=== PATIENT | male | born 1950 | race Caucasian/White ===

== ENCOUNTER → 2017-12-20 11:52 | Outpatient (CLI) | payer MEDICARE, OTHER, SELFPAY ==
--- NOTE | 2017-12-20 | DI.MRI.S_ITS ---
PROCEDURE: MR HEAD/BRAIN WO/W CON INDICATIONS: TRANSLENT CEREBRAL ISCHEMIA TECHNIQUE: Noncontrast axial T1 spin echo, axial T2 fast spin echo, sagittal and axial FLAIR, coronal T2 fast spin echo, axial gradient echo, axial diffusion and ADC through the brain. After the administration of contrast, axial and coronal T1 spin echo with fat saturation through the brain. COMPARISON: None. FINDINGS: Image quality: Excellent. CSF spaces: Basal cisterns are patent. No extra-axial fluid collections. Ventricles are normal in size and shape. Brain: No midline shift. No intracranial bleeds or masses. No abnormal intracranial enhancement. There is cerebral volume loss for age. There is periventricular white matter chronic small vessel ischemic change. The brainstem appears normal. Diffusion-weighted images demonstrate no acute ischemic insults. No chronic ischemic insults. Normal intravascular flow voids are present. Skull and face: Calvarial marrow is normal in signal. Orbits appear normal. Within the subcutaneous fat of the right posterior superior scalp, there is a 13 mm lesion seen that demonstrates postcontrast enhancement. There is well-defined. No additional similar scalp lesions can be seen. Sinuses: Sinuses and mastoids appear clear. IMPRESSION: No findings of acute or subacute infarction can be seen. No masses or abnormal enhancement can be seen. Note is made of age-appropriate brain parenchymal volume loss and chronic small vessel ischemic changes. Likely benign subcutaneous lesion involving the right posterior superior scalp. Please correlate with physical examination findings. Dictated by: Uriel Mata M.D. on 12/20/2017 at 12:17 Approved by: Uriel Mata M.D. on 12/20/2017 at 12:19
[2017-12-20 12:36] LABS: Estimated Glomerular Filt Rate > 60.0 mL/min (>60)
== END ==
PROVIDERS: Family Provider Family Medicine; PCP Family Medicine; Visit Provider Psychiatry & Neurology Neurology
DX: G45.9 Transient cerebral ischemic attack, unspecified (principal); L98.9 Disorder of the skin and subcutaneous tissue, unspecified
CPT/HCPCS: 36415; 70553; 82565; A9579

== ENCOUNTER → 2018-03-15 09:45 | Outpatient (CLI) | payer MEDICARE, OTHER, SELFPAY ==
--- NOTE | 2018-03-15 | DI.MRI.S_ITS ---
PROCEDURE: MR LUMBAR SPINE WO/W CON INDICATIONS: Paresthesia of skin TECHNIQUE: Noncontrast sagittal T1 spin echo and T2 fast spin echo, sagittal STIR, axial T1 and T2 fast spin echo through the lumbar spine. In cases with scoliosis, additional coronal T2 fast spin echo may be performed. After the administration of contrast, sagittal and axial T1 spin echo with fat saturation through the lumbar spine. COMPARISON: [facility], , L-SPINE WITHOUT CONTRAST, 11/09/2015, 16:13. FINDINGS: Image quality: Excellent. Alignment and curvature: There is normal bony alignment. Marrow: Marrow is of normal overall signal. No acute vertebral body compression fractures. No suspicious marrow enhancement. Spinal cord: Conus medullaris terminates at the L1 level. Visualized spinal cord demonstrates normal signal, without suspicious enhancement. Paraspinous soft tissues: No paravertebral masses or abnormal enhancement. L1-L2: Mild loss of disc height and disc desiccation. There is diffuse posterior disc bulge with disc osteophyte complex. The central canal is mildly narrowed. Mild left foraminal stenosis. No right foraminal stenosis. No significant change. L2-L3: Mild loss of disc height and disc desiccation. There is diffuse posterior disc bulge with disc osteophyte complex. Moderate bilateral facet arthropathy and mild hypertrophy of ligament of flavum. The central canal is mildly narrowed. Mild narrowing of the left lateral recess. No foraminal stenosis. No significant change. L3-L4: Mild loss of disc height and disc desiccation. There is diffuse posterior disc bulge with disc osteophyte complex. There is left paramedian disc extrusion with the extreme disc extending superiorly measuring 4 mm anterior-posterior, 13 mm transverse and 11 mm cephalocaudal. This finding is new. Moderate bilateral facet arthropathy and hypertrophy of ligament of flavum. The central canal is moderately narrowed, increased. [id number] bilateral foraminal stenosis, slightly increased. L4-L5: Mild loss of disc height and disc desiccation. There is diffuse posterior disc bulge with disc osteophyte complex. There Moderate bilateral facet arthropathy and hypertrophy of ligament of flavum. The central canal is mildly narrowed. [id number] bilateral foraminal stenosis, unchanged. L5-S1: Preserved disc height and mild disc desiccation. There is diffuse posterior disc bulge. Moderate bilateral facet arthropathy. The central canal is patent. Moderate right and mild left foraminal stenosis, unchanged. IMPRESSION: 1. Multilevel degenerative disc disease and facet arthropathy as described. 2. There is disc herniation at L3-L4, new since the last exam. 3. Moderate central canal stenosis at L3-L4. 4. Multilevel foraminal stenosis as described. Dictated by: Edson Adams M.D. on 03/15/2018 at 11:37 Transcribed by: KATEY on 03/15/2018 at 19:28 Approved by: Edson Adams M.D. on 03/16/2018 at 19:02
== END ==
PROVIDERS: Family Provider Family Medicine; PCP Family Medicine; Visit Provider Psychiatry & Neurology Neurology
DX: M51.36 Other intervertebral disc degeneration, lumbar region (principal); M51.37 Other intervertebral disc degeneration, lumbosacral region; M48.061 Spinal stenosis, lumbar region without neurogenic claudication; R20.2 Paresthesia of skin; M48.07 Spinal stenosis, lumbosacral region; M47.816 Spondylosis without myelopathy or radiculopathy, lumbar region; M47.817 Spondylosis without myelopathy or radiculopathy, lumbosacral region; M51.26 Other intervertebral disc displacement, lumbar region
CPT/HCPCS: 72158

== ENCOUNTER → 2018-10-30 12:03 | Outpatient (CLI) | payer MEDICARE, OTHER, SELFPAY ==
[2018-10-30 13:03] LABS: Add Manual Diff / Slide Review NO; Basophils Absolute Auto 0 /uL (0-100); Basophils Percent Auto 0.6 % (0-2); Eosinophils Absolute Auto 100 /uL (0-450); Hematocrit 41.3 % (41-53); Hemoglobin 14.1 g/dL (13.5-17.5); Lymphocytes Absolute Auto 1400 /uL (1100-4500); Lymphocytes Percent Auto 29.8 % (25-40); Mean Corpuscular HGB Conc 34.2 % (30-36); Mean Corpuscular Hemoglobin 30.1 PG (26-34); Mean Corpuscular Volume 88.1 fL (80-100); Monocytes Absolute Auto 400 /uL (0-900); Neutrophils Absolute Auto 2700 /uL (1500-7000); Neutrophils Percent Auto 58.6 % (50-75); Platelet Count 178 X10^3/uL (150-400); Red Blood Cell Count 4.69 X10^6/uL (4.5-5.9); Red Cell Distribution Width 14.1 % (11.6-14.8); White Blood Cell Count 4.6 X10^3/uL (4.5-11.0)
[2018-10-30 13:16] LABS: Hemoglobin A1C% w Est Avg Glu 6.2 % (4.0-6.0)
[2018-10-30 13:17] LABS: Appearance Urine UA CLEAR; Bilirubin Urine UA NEGATIVE (NEGATIVE); Color Urine UA YELLOW; Glucose Urine UA NEGATIVE (Negative); Ketones Urine UA TRACE (NEGATIVE); Leukocyte Esterase Urine UA TRACE (NEGATIVE); Nitrite Urine UA NEGATIVE (Negative); Occult Blood Urine UA NEGATIVE (Negative); Protein Urine UA NEGATIVE (Negative); Specific Gravity Urine UA <=1.005 (1.000-1.035)
[2018-10-30 13:29] LABS: Blood Urea Nitrogen 18 mg/dL (9-20); Carbon Dioxide 24 mmol/L (22-32); Chloride 100 mmol/L (98-107); Estimated Glomerular Filt Rate > 60.0 mL/min (>60); Glucose 99 mg/dL (80-110); HEMOLYSIS 50 (0-50); Potassium 4.1 mmol/L (3.4-5.1); Sodium 137 mmol/L (137-145)
[2018-10-30 13:35] LABS: Bacteria Urine Occasional (0-1); Culture Indicated Urine Specimen Cultured; RBC Urine 0-1/HPF (0-5/HPF); WBC Urine 0-1/HPF (0-5/HPF)
== END ==
PROVIDERS: Family Provider Family Medicine; PCP Family Medicine; Visit Provider Orthopaedic Surgery
DX: Z01.818 Encounter for other preprocedural examination (principal); Z01.812 Encounter for preprocedural laboratory examination; N39.9 Disorder of urinary system, unspecified; Z13.1 Encounter for screening for diabetes mellitus; R73.9 Hyperglycemia, unspecified
CPT/HCPCS: 36415; 80048; 81001; 83036; 85025; 87086; 93005; 93010

== ENCOUNTER → 2018-11-21 17:37 | Outpatient (CLI) | payer MEDICARE, OTHER, SELFPAY ==
--- NOTE | 2018-11-21 | DI.MRI.S_ITS ---
PROCEDURE: MR KNEE LT WO CON INDICATIONS: Unilateral primary osteoarthritis, left knee TECHNIQUE: Noncontrast sagittal PD fast spin echo and T2 fast spin echo with fat saturation, sagittal 3-D FLASH with fat saturation; coronal T1 spin echo and PD fast spin echo with fat saturation, and axial PD fast spin echo with fat saturation through the knee. COMPARISON: [facility], CR, XR KNEE ARTHRITIC SERIES BI, 10/26/2018, 13:33. FINDINGS: Image quality: Excellent. Menisci: There is medial extrusion of the medial meniscus. There is complex tearing of the posterior horn medial meniscus adjacent to the meniscal root ligament insertion site. Radial tearing of the free edge of the posterior horn medial meniscus is present. Amorphous high signal intensity within the medial meniscal body is present, demonstrating inferior articular surface extension. There is radial tearing of the free edge of the lateral meniscal body. Cruciate ligaments: The anterior and posterior cruciate ligaments appear intact. Medial structures: The medial collateral ligament appears intact. Visualized portions of the pes anserinus tendons appear normal. No abnormal bursal fluid. Lateral structures: The lateral collateral ligament, long and short heads of the biceps femoris tendon appear intact. The popliteus tendon appears normal. Iliotibial band appears normal. Anterior structures: The quadriceps and patellar tendons appear intact. Patellar alignment is normal. No femoral trochlear dysplasia or ventral trochlear prominence. No edema in the infrapatellar fat pad. Bones and cartilage: No bone marrow contusions or fractures. Mild ill-defined T2 signal elevation within the weightbearing aspects of the medial femoral condyle and medial tibial plateau. Moderate tricompartmental periarticular osteophyte formation. Severe diffuse articular cartilage loss overlies the weightbearing aspects of the medial femoral condyle and medial tibial plateau. Severe articular cartilage loss overlies the patellar apex and medial patellar facet. Joint space: There is a moderate knee joint effusion and a small Wiseman's cyst. Normal appearing synovial plicae are incidentally noted. IMPRESSION: 1. 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 2. Medial and lateral meniscal tearing. 3. Knee joint effusion and Wiseman's cyst. Dictated by: Kathryn Amezquita M.D. on 11/22/2018 at 9:15 Approved by: Kathryn Amezquita M.D. on 11/22/2018 at 9:23
== END ==
PROVIDERS: Family Provider Family Medicine; PCP Family Medicine; Visit Provider Orthopaedic Surgery
DX: M17.12 Unilateral primary osteoarthritis, left knee (principal); S83.232A Complex tear of medial meniscus, current injury, left knee, initial encounter; S83.282A Other tear of lateral meniscus, current injury, left knee, initial encounter; M71.22 Synovial cyst of popliteal space [Baker], left knee; M25.462 Effusion, left knee
CPT/HCPCS: 73721

== ENCOUNTER 2019-02-05 11:39 | Day surgery (SDC) | payer MEDICARE, OTHER, SELFPAY ==
[2019-01-25 14:30] VITALS: BMI 40.1
[2019-01-29 11:48] VITALS: BMI 40.1
[2019-02-05] VITALS (7 sets, daily range): BP systolic 92–118; BP diastolic 51–73; PULSE 71–80; RESP 10–18; TEMP 36.1–37.2; O2SAT 92–95; BMI 31.2
--- NOTE | 2019-02-05 07:00 | DI.RAD.S_ITS ---
PROCEDURE: XR KNEE LT 1TO2V INDICATIONS: post op TECHNIQUE: 2 view(s) of the knee acquired. COMPARISON: [facility], MR, MR KNEE LT WO CON, 11/21/2018, 18:01. FINDINGS: Bones: Patient is status post left knee joint medial hemiarthroplasty. Hardware components are in expected positions. Visualized bony structures are intact. Soft tissues: Overlying postoperative changes are noted. IMPRESSION: Left knee medial hemiarthroplasty. The left knee prosthesis is in anatomic alignment. Dictated by: Edson Adams M.D. on 02/05/2019 at 17:09 Approved by: Edson Adams M.D. on 02/05/2019 at 17:11
[2019-02-05] MEDS: CELECOXIB 200 MG CAPSULE PO (12:55)
[2019-02-05] MEDS: ACETAMINOPHEN 325 MG TABLET 975 MG PO (12:55)
[2019-02-05] MEDS: PREGABALIN 75 MG CAPSULE PO (12:55)
[2019-02-05] MEDS: LACTATED RINGERS 1,000 ML 42 ML IV (13:45)
[2019-02-05] MEDS: VANCOMYCIN 1,000 MG/200 ML PIGGYBACK 200 MG IV (13:45)
[2019-02-05] MEDS: CEFAZOLIN 2 GM/100 ML FROZ.PIGGY IV (14:16)
--- NOTE | 2019-02-05 14:28 | P.OP_ITS ---
Operative Date/Time/Diagnoses Date of procedure: 02/05/19 Time of procedure: 14:28 Pre-op diagnosis: Left knee medial osteoarthritis Post-op diagnosis: same Procedure & Clinicians Procedure: Left knee medial unicompartment arthroplasty Same procedure as scheduled: Yes Indications: The patient has had progressively worsening left knee pain with radiographic changes consistent with arthritis. Non-operative management has failed and the patient has requested medial unicompartment knee replacement. The risks, benefits and alternatives to surgery were discussed with the patient prior to proceeding. Risks discussed included, but were not limited to, failure to relieve pain, stiffness, infection, nerve damage, deep venous thrombosis, pulmonary embolism, stroke, coma, heart attack, permanent paralysis and , as well as the potential need for eventual revision of the prosthetic. Surgeon: Sheila Aaron [employer]ceivables Specialist: Lissa Arellano Anesthesia Type: General and Peripheral nerve block Operative Notes Findings: Severe left knee medial unicompartment arthritis Closure Type: primary Specimen(s): none sent Prosthetic devices, grafts, tissues, transplants, or devices: [employer] ZUK size 4 tibia, +9 poly, size E femur Estimated Blood Loss (mL): 200 Blood products transfused: none Tourniquet time (min): 65 Procedure in detail: The patient was seen in the pre-operative area, where the left knee was identified as the operative site and this was marked with my initials. The patient received pre-operative antibiotics, and was taken to the operating room and placed on the operative table in the supine position. After satisfactory anesthesia, a area field manager out was performed. The left leg was encircled with a tourniquet about the proximal thigh, and the leg was prepared from the toes to the tourniquet with ChloroPrep in the usual fashion and draped through sterile drapes. The leg was elevated and exsanguinated with Eschmark bandage and the tourniquet inflated to [250] mmHg pressure. The knee was approached through an approximately 10 cm incision medial parapatella incision and carried into the knee through a medial parapatellar arthrotomy. The osteophytes and medial meniscus were removed. Next, a small amount of the anterior tibial boss was carefully resected with a saw. The guide was placed along the medial joint line. It was meticulously adjusted to make sure there was appropriate slope that it was at the joint line and then was pinned to the tibia and the femur. The medial femoral condylar cut was made in extension. The tibial cut was made in flexion. The bone was meticulously irrigated with normal saline. Small amount of additional meniscus was resected posterior capsule was checked and injected with Marcaine. The extension gap was carefully checked with an 8 mm gap dedicated owner operator was noted that it fit well. A small number of additional osteophytes were resected. The tibia was a size 4. It was noted that it fit without overhang. The femur was sized and it was noted to be a E. The appropriate cutting guide was pinned into place and carefully positioned on the femoral condyle. Drill holes were placed. The tibia was pinned into place and drill holes were made. Trial reduction with the appropriate poly showed full range of motion and good stability at 0, 45. and 90? with normal tracking of the components without edge loading. The bone was meticulously irrigated and dried. Additional Marcaine was injected. The posterior capsule was injected with 0.25% Marcaine mixed with 20 ml Exparel for post-operative pain control. The remainder of this mixture was injected into the capsule and subcutaneous tissues during cement curing. Range of motion was [0-130], with good stability throughout the range. The trials were then remove. The cement was as applied and the final prosthetics placed. Excess cement was removed during and after cement curing. A brief medial compartment Betadine soak was performed. After confirming there was no extruded cement posteriorly, the final tibial insert was placed. The knee was copiously irrigated and the tourniquet deflated. Hemostasis was obtained. The capsule was closed with interrupted vicryl. The subcutaneous tissue was closed with barbed sutures. The skin with a running 3-0 V-Lock suture and surgical glue. An Aquacel Ag dressing was applied and the patient was taken to recovery having tolerated the procedure well. Complications: none Post-operative Condition: stable Disposition: same day surgery Plan for aftercare: The patient will be maintained on a standard medial Uni compartmental knee replacement protocol with weight bearing as tolerated. The patient will receive aspirin and sequential compression devices for DVT prophylaxis. The patient will be discharged home when safe for the home environment.
--- NOTE | 2019-02-05 14:28 | PM.PREOP ---
Pre-operative Note Interval Note History & Physical reviewed/Exam performed by Physician: Yes Changes to H&P: No
--- NOTE | 2019-02-05 14:54 | SUR.OPER ---
Supine on padded OR bed. Pillow under head, arms secured on padded armboards <90 degree abduction. Safety belt across torso. Non-operative leg secured with tape over blanket over lower leg. Operative leg secured in Michael positioner. Foam padded brace at thigh of operative leg.
[2019-02-05] MEDS: BUPIVACAINE 0.25% W/ EPI (PF) 10 ML VIAL 60 ML INJ (15:00)
[2019-02-05] MEDS: BUPIVACAINE LIPOSOME 266 MG/20 ML VIAL INJ (15:01)
[2019-02-05] MEDS: SODIUM CHLORIDE IRRIG SOLUTION 250 ML, POVIDONE-IODINE SPONGE STICKS 1 APPLIC IRR (15:02)
--- NOTE | 2019-02-05 15:03 | P.PCN_ITS ---
Procedures Date/Time Date of procedure: 02/05/19 Time of procedure: 14:00 General Procedure description: Ultrasound guided adductor canal nerve block for post op pain control after left uni (medial) knee arthroplasty by Dr. Aaron. Risk and b enefits of procedure discussed with patient. ASA monitoring applied to patient. O2 given via nasal cannula. 50 mcg fentanyl given for procedural sedation. Skin site was prepped with chlorhexidine and allowed to fully dry. Sterile gloves, mask, hat and probe cover were used to maintain sterility. 2% lidocaine and 30ga needle was used to make a small skin wheal at needle insertion site. Under ultrasound guidance, a 21ga 100mm Pajunk needle was directed into the adductor canal near femoral artery and saphenous nerve at the level of mid thigh. Patient reported no parasthesias. After negative aspiration, 20 mL 0.5% ropivicaine and 10mg dexamethasone were injected around saphenous nerve. Patient tolerated procedure well.
--- NOTE | 2019-02-05 15:49 | SUR.PREOP ---
Block start time 1403. Monitoring initiated and maintained throughout procedure. Oxygen given per anesthesiologist instructions. Meds given by Dr Aguirre. Patient remained stable throughout procedure, no adverse reactions noted. Block end time 1407. Patient left for OR in stable condition.
== END 2019-02-05 17:35 | disposition home or self-care (01) ==
PROVIDERS: PCP Family Medicine; Visit Provider Orthopaedic Surgery
PROC: (CPT 27446; principal; 2019-02-05 13:15)
DX: M17.12 Unilateral primary osteoarthritis, left knee (principal); Z86.73 Personal history of transient ischemic attack (TIA), and cerebral infarction without residual deficits; Z79.01 Long term (current) use of anticoagulants; G47.30 Sleep apnea, unspecified; E03.9 Hypothyroidism, unspecified; I10 Essential (primary) hypertension; I25.10 Atherosclerotic heart disease of native coronary artery without angina pectoris; J45.909 Unspecified asthma, uncomplicated
CPT/HCPCS: 27446; 64450; 73560; C1776; C9290; J0690; J1100; J2250; J2405; J2704; J3010

== ENCOUNTER 2019-04-13 11:21 | Inpatient (IN) | payer MEDICARE, OTHER, SELFPAY ==
[2019-04-13] VITALS (9 sets, daily range): BP systolic 115–138; BP diastolic 55–88; PULSE 86–95; RESP 14–26; TEMP 36.8–39.4; O2SAT 92–99; BMI 37.3
--- NOTE | 2019-04-13 12:49 | ED_ITS ---
HPI - General Adult General Chief complaint: Weakness Stated complaint: weakness, shaking, nausea Time Seen by Provider: 04/13/19 12:49 Source: patient Mode of arrival: EMS History of Present Illness HPI narrative: 68-year-old gentleman with a complex medical history including coronary artery disease, cardiomyopathy, hypothyroidism, and prior TIA who presents with fever, chills, general malaise and tachypnea that seems to be getting worse over the last 3 days. He had knee surgery at [facility] in January and a recent a history of urosepsis with multiple rounds of antibiotics eventually culminating in a prostatectomy for BPH approximately 2 weeks ago. He has been self cathing since the recent prostatectomy. Related Data Home Medications Medication Instructions Recorded Confirmed ProAir RespiClick 2 inh INHALATION Q4-6H PRN 01/25/19 04/13/19 cetirizine [Zyrtec] 10 mg PO DAILY 01/25/19 04/13/19 clopidogrel 75 mg PO DAILY 01/25/19 04/13/19 cyclobenzaprine 10 mg PO TID PRN 01/25/19 04/13/19 fluoxetine [Prozac] 30 mg PO DAILY 01/25/19 04/13/19 fluticasone propionate [Flonase 2 spray INTRANASAL DAILY PRN 01/25/19 04/13/19 Allergy Relief] furosemide 40 mg PO DAILY 01/25/19 04/13/19 gabapentin 300 - 600 mg PO QID PRN 01/25/19 04/13/19 lamotrigine [Lamictal] 200 mg PO DAILY 01/25/19 04/13/19 levothyroxine 100 mcg PO DAILY 01/25/19 04/13/19 losartan 50 mg PO DAILY 01/25/19 04/13/19 pantoprazole 40 mg PO DAILY 01/25/19 04/13/19 potassium chloride 20 meq PO DAILY 01/25/19 04/13/19 ropinirole 2 mg PO DAILY 01/25/19 04/13/19 rosuvastatin [Crestor] 40 mg PO DAILY 01/25/19 04/13/19 trazodone 50 mg PO DAILY 01/25/19 04/13/19 Previous Rx's Medication Instructions Recorded oxycodone 5 mg PO Q4H PRN #30 cap 02/05/19 Allergies Allergy/AdvReac Type Severity Reaction Status Date / Time No Known Drug Allergies Allergy Verified 02/05/19 12:00 Review of Systems Review of Systems Narrative: Denies ? chest pain ? abdominal pain ? change to bowel habits ? nausea vomiting ? skin changes ? rashes Patient History Medical History Anxiety (Acute) Arthritis (Acute) Back pain (Acute) Elder's esophagus (Acute) CAD (coronary artery disease) (Acute) Cardiomyopathy (Acute) Chest pain (Acute) Chronic back pain (Acute) Depression (Acute) Dysphagia (Acute) GERD (gastroesophageal reflux disease) (Acute) History of sepsis (Acute) History of syncope (Acute) HLD (hyperlipidemia) (Acute) HTN (hypertension) (Acute) Hypothyroid (Acute) Kidney stones (Acute) Neck pain (Acute) Osteoarthritis (Acute) Polyneuropathy (Acute) Prostatitis (Acute) PVC's (premature ventricular contractions) (Acute) RLS (restless legs syndrome) (Acute) Sleep apnea (Acute) TIA (transient ischemic attack) (Acute 10/24/17) Viral meningitis (Acute) Surgical History H/O: vasectomy (Acute) History of penile implant (Acute) History of repair of hiatal hernia (Acute ~01/2017) Hx of cardiac cath (Acute) Hx of cystoscopy (Acute 08/02/17) Hx of cystoscopy (Acute 06/05/18) Hx of right inguinal hernia repair (Acute 10/16/13) S/P CABG x 4 (Acute ~2000) S/P epidural steroid injection (Acute) Social History household members: spouse Smoking Status: Never smoker alcohol intake: former Smoking Status: Never smoker Substance Use Type: does not use Exam Narrative Exam Narrative: General: Flushed and moderately ill-appearing but in no acute distress. Able to give a complete and coherent history. Well-nourished well-developed HEENT: Moist mucous membranes, normal sclera with reactive pupils, Neck: No JVD, supple Respiratory: Lungs are clear to auscultation, no wheezing no rales no rhonchi. Full and symmetrical air movement Cardiac: Regular rate and rhythm no murmurs no bruits Abdomen: Soft nontender good bowel tones, no flank pain Skin: Warm and dry, no rashes Neurologic: Grossly neurologically intact with no obvious asymmetries or abnormalities Extremities: No trauma, well perfused, 1+ bilateral edema Psych: Cooperative, appropriate insight and affect Initial Vital Signs Initial Vital Signs: Vital Signs Temperature 99 F 04/13/19 11:34 Pulse Rate 95 H 04/13/19 11:34 Respiratory Rate 14 04/13/19 11:34 Blood Pressure 126/58 L 04/13/19 11:34 Pulse Oximetry 99 04/13/19 11:34 Course Orders Ordered: Acetaminophen (Tylenol) 975 mg PO Q8H PRN PRN Reason: Fever/Mild Pain (1-3) Last Admin: 04/14/19 08:26 Dose: 975 mg Documented by: ANDRÉS Al Hydrox/Mg Hydrox/Simethicone (Maalox Plus) 30 ml PO Q6HR PRN PRN Reason: Dyspepsia Albuterol (Ventolin) 2.5 mg INH Q4H PRN PRN Reason: Shortness Of Breath Bisacodyl (Dulcolax) 10 mg SC DAILY PRN PRN Reason: Constipation Calcium Carbonate (Tums) 1,000 mg PO Q4HR PRN PRN Reason: Dyspepsia Clopidogrel Bisulfate (Plavix) 75 mg PO DAILY [facility] Last Admin: 04/14/19 08:38 Dose: 75 mg Documented by: ANDRÉS Cyclobenzaprine HCl (Flexeril) 10 mg PO TID PRN PRN Reason: Muscle Spasm Docusate Sodium (Colace) 100 mg PO BID PRN PRN Reason: Constipation Docusate Sodium (Colace) 100 mg PO BID [facility] Last Admin: 04/14/19 08:31 Dose: Not Given Documented by: ANDRÉS Enoxaparin Sodium (Lovenox) 40 mg SUBCUT DAILY [facility] Last Admin: 04/14/19 08:37 Dose: 40 mg Documented by: ANDRÉS Fluoxetine HCl (Prozac) 30 mg PO DAILY [facility] Last Admin: 04/14/19 08:37 Dose: 30 mg Documented by: ANDRÉS Gabapentin (Neurontin) 900 mg PO BID [facility] Last Admin: 04/14/19 08:38 Dose: 900 mg Documented by: Admin: 04/14/19 05:42 Dose: Not Given Documented by: BESSIE Levofloxacin (Levaquin) 750 mg in 150 mls @ 100 mls/hr IV NOW [facility] Last Infusion: 04/13/19 15:17 Dose: 0 mls/hr Documented by: Admin: 04/13/19 14:07 Dose: 100 mls/hr Documented by: PRICILLA Sodium Chloride (Normal Saline 0.9%) 1,000 mls @ 100 mls/hr IV CONT [facility] Last Admin: 04/13/19 20:10 Dose: 100 mls/hr Documented by: JONATHAN Ceftriaxone Sodium/Dextrose (Rocephin) 2 gm in 50 mls @ 100 mls/hr IV Q24H [facility] Last Infusion: 04/13/19 21:25 Dose: 0 mls/hr Documented by: Admin: 04/13/19 20:42 Dose: 100 mls/hr Documented by: JONATHAN Lamotrigine (Lamictal) 200 mg PO BEDTIME [facility] Last Admin: 04/14/19 05:42 Dose: Not Given Documented by: BESSIE Levothyroxine Sodium (Synthroid) 100 mcg PO DAILY [facility] Last Admin: 04/14/19 08:38 Dose: 100 mcg Documented by: ANDRÉS Losartan Potassium (Cozaar) 50 mg PO DAILY [facility] Last Admin: 04/14/19 08:38 Dose: 50 mg Documented by: ANDRÉS Naloxone HCl (Narcan) 0.2 mg IV Q2MIN PRN PRN Reason: Opiate Reversal Ondansetron HCl (Zofran) 4 mg IV Q8HR PRN PRN Reason: Nausea And Vomiting Oxycodone HCl (Percolone) 5 mg PO Q4H PRN PRN Reason: pain Pantoprazole Sodium (Protonix) 40 mg PO DAILY [facility] Last Admin: 04/14/19 08:38 Dose: 40 mg Documented by: ANDRÉS Polyethylene Glycol (Miralax) 17 gm PO DAILY [facility] Last Admin: 04/14/19 08:32 Dose: Not Given Documented by: ANDRÉS Ropinirole HCl (Requip) 2 mg PO DAILY [facility] Last Admin: 04/14/19 08:39 Dose: 2 mg Documented by: ANDRÉS Rosuvastatin Calcium (Crestor) 40 mg PO DAILY [facility] Last Admin: 04/14/19 08:37 Dose: 40 mg Documented by: ANDRÉS Discontinued Medications Acetaminophen (Tylenol) 975 mg PO NOW ONE Stop: 04/13/19 13:54 Last Admin: 04/13/19 14:05 Dose: 975 mg Documented by: PRICILLA Acetaminophen (Tylenol) 650 mg PO Q4HR [facility] Last Admin: 04/13/19 20:40 Dose: 650 mg Documented by: JONATHAN Acetaminophen (Tylenol) 975 mg PO Q6HR [facility] Last Admin: 04/14/19 06:28 Dose: Not Given Documented by: Admin: 04/14/19 00:41 Dose: 975 mg Documented by: BESSIE Sodium Chloride (Normal Saline 0.9%) 1,000 mls @ 200 mls/hr IV CONT [facility] Last Admin: 04/14/19 05:39 Dose: 200 mls/hr Documented by: Infusion: 04/14/19 05:39 Dose: 0 mls/hr Documented by: Infusion: 04/13/19 21:24 Dose: 0 mls/hr Documented by: Admin: 04/13/19 20:47 Dose: 200 mls/hr Documented by: Infusion: 04/13/19 20:47 Dose: 200 mls/hr Documented by: Admin: 04/13/19 20:36 Dose: 200 mls/hr Documented by: Infusion: 04/13/19 19:09 Dose: 200 mls/hr Documented by: Infusion: 04/13/19 18:39 Dose: 200 mls/hr Documented by: Admin: 04/13/19 14:08 Dose: 200 mls/hr Documented by: PRICILLA Ibuprofen (Advil) 400 mg PO NOW ONE Stop: 04/13/19 21:33 Last Admin: 04/13/19 22:04 Dose: 400 mg Documented by: GABINO Lamotrigine (Lamictal) 200 mg PO DAILY [facility] Lidocaine HCl (Urojet) 5 ml TOP NOW ONE Stop: 04/13/19 17:26 Last Admin: 04/13/19 18:19 Dose: 5 ml Documented by: PRICILLA Potassium Chloride (Klor-Con M20) 40 meq PO NOW ONE Stop: 04/13/19 17:07 Last Admin: 04/13/19 17:24 Dose: 40 meq Documented by: PRICILLA Vital Signs Vital signs: Vital Signs - 8 hr 04/13/19 11:34 04/13/19 14:05 04/13/19 15:19 Temperature 99 F 100.7 F H Pulse Rate 95 H 86 Respiratory Rate 14 18 Blood Pressure 126/58 L Blood Pressure [Left Arm] 115/88 Pulse Oximetry 99 92 04/13/19 15:58 Temperature 99.6 F Pulse Rate 88 Respiratory Rate 26 H Blood Pressure Blood Pressure [Left Arm] 115/55 L Pulse Oximetry 95 Medical Decision Making Medical Records Medical records reviewed: Yes I reviewed the patient's medical records. Lab Data Lab results reviewed: Yes I reviewed the patient's lab results. Lab results narrative: Leukocytosis with left shift Mild hyponatremia, hypokalemia Elevated bilirubin and procalcitonin Urine suggests UTI with multiple white blood cells and bacteria Result diagrams: 04/14/19 06:32 04/14/19 06:32 Labs: Lab Results 04/13/19 04/13/19 04/13/19 Range/Units 13:15 13:15 13:15 WBC 12.2 H (4.5-11.0) X10^3/uL RBC 4.03 L (4.5-5.9) X10^6/uL Hgb 11.9 L (13.5-17.5) g/dL Hct 35.5 L (41-53) % MCV 88.1 (80-100) fL MCH 29.5 (26-34) PG MCHC 33.5 (30-36) % RDW 16.6 H (11.6-14.8) % Plt Count 198 (150-400) X10^3/uL Neut % (Auto) 85.2 H (50-75) % Lymph % (Auto) 6.7 L (25-40) % [place] % (Auto) 7.7 (3-14) % Eos % (Auto) 0.0 L (2-4) % Baso % (Auto) 0.4 (0-2) % Neut # (Auto) 53441 H (1254-2506) /uL Lymph # (Auto) 800 L (7848-7428) /uL [place] # (Auto) 900 (0-900) /uL Eos # (Auto) 0 (0-450) /uL Baso # (Auto) 0 (0-100) /uL Sodium 131 L (137-145) mmol/L Potassium 3.2 L (3.4-5.1) mmol/L Chloride 94 L (98-107) mmol/L Carbon Dioxide 29 (22-32) mmol/L BUN 17 (9-20) mg/dL Creatinine 1.10 (0.66-1.25) mg/dL Estimated GFR > 60.0 (>60) mL/min BUN/Creatinine Ratio 15.5 (6-22) Glucose 132 H (80-110) mg/dL Lactate (0.7-2.1) mmol/L Calcium 8.9 (8.4-10.2) mg/dL Magnesium (1.6-2.3) mg/dL Total Bilirubin 1.7 H (0.2-1.3) mg/dL AST 58 (17-59) IU/L ALT 40 (<50) IU/L Alkaline Phosphatase 46 (38-126) U/L Total Protein 7.2 (6.3-8.2) g/dL Albumin 3.8 (3.5-5.0) g/dL Globulin 3.4 (1.7-4.1) g/dL Albumin/Globulin Ratio 1.1 (1.0-2.8) Procalcitonin 0.94 H (<0.5) ng/mL Urine Color Urine Appearance Urine pH Ur Specific [place] Urine Protein Urine Glucose (UA) Urine Ketones Urine Occult Blood Urine Nitrate Urine Bilirubin Urine Urobilinogen Ur Leukocyte Esterase Urine RBC (0-5/HPF) Urine WBC (0-5/HPF) Ur Squamous Epith Cells (0-5/HPF) Urine Bacteria (None) Ur Culture Indicated? 04/13/19 04/13/19 04/13/19 Range/Units 13:15 13:15 14:13 WBC (4.5-11.0) X10^3/uL RBC (4.5-5.9) X10^6/uL Hgb (13.5-17.5) g/dL Hct (41-53) % MCV (80-100) fL MCH (26-34) PG MCHC (30-36) % RDW (11.6-14.8) % Plt Count (150-400) X10^3/uL Neut % (Auto) (50-75) % Lymph % (Auto) (25-40) % [place] % (Auto) (3-14) % Eos % (Auto) (2-4) % Baso % (Auto) (0-2) % Neut # (Auto) (2501-4347) /uL Lymph # (Auto) (1377-5492) /uL [place] # (Auto) (0-900) /uL Eos # (Auto) (0-450) /uL Baso # (Auto) (0-100) /uL Sodium (137-145) mmol/L Potassium (3.4-5.1) mmol/L Chloride (98-107) mmol/L Carbon Dioxide (22-32) mmol/L BUN (9-20) mg/dL Creatinine (0.66-1.25) mg/dL Estimated GFR (>60) mL/min BUN/Creatinine Ratio (6-22) Glucose (80-110) mg/dL Lactate 1.1 (0.7-2.1) mmol/L Calcium (8.4-10.2) mg/dL Magnesium 2.5 H (1.6-2.3) mg/dL Total Bilirubin (0.2-1.3) mg/dL AST (17-59) IU/L ALT (<50) IU/L Alkaline Phosphatase (38-126) U/L Total Protein (6.3-8.2) g/dL Albumin (3.5-5.0) g/dL Globulin (1.7-4.1) g/dL Albumin/Globulin Ratio (1.0-2.8) Procalcitonin (<0.5) ng/mL Urine Color [place] Urine Appearance Sl cloudy Urine pH TNP Ur Specific [place] TNP Urine Protein TNP Urine Glucose (UA) TNP Urine Ketones TNP Urine Occult Blood TNP Urine Nitrate TNP Urine Bilirubin TNP Urine Urobilinogen TNP Ur Leukocyte Esterase TNP Urine RBC 10-30/hpf H (0-5/HPF) Urine WBC >100/hpf H (0-5/HPF) Ur Squamous Epith Cells None seen (0-5/HPF) Urine Bacteria Many (>30) H (None) Ur Culture Indicated? Specimen cultured Imaging Data Chest x-ray: Radiologist's Impression: IMPRESSION: No acute cardiopulmonary findings. Dictated by: Ashanti Smith M.D. on 04/13/2019 at 13:00 [facility] Narrative Medical decision making narrative: 68-year-old gentleman presents with weakness and chills a week and a half after a prostatectomy for BPH with self cathing intermittently. No localizing signs of infection so strong suspicion for urinary source at this time. He is mildly tachypneic but not specifically tachycardic or hypotensive. Will begin fluids but not the 30 per kilos as severe sepsis is not suspected at this time. Will begin antibiotic coverage after blood cultures and urine have been obtained with Levaquin. He has had recent urine infections documented at [facility], will try and obtain culture and sensitivity to make sure that were tailoring antibiotics appropriately initially. Will re-evaluate need for additional fluids over the course of his ER stay based on his clinical exam and labs returning 1400 brief records from [facility] avialable RE: recent urine cultures. Only [facility] culture was 03/26/2019 that showed no growth. Mention in records from UA done in [place] 08/02/17 wtih 100K cfu STAPH, resistant to quinolones, e-mycin, gent. sensitve to macrobid, linezolid, bactrim, rifampin. Will add vanco to current levaquin based on this (almost 2yr old) report. 1555 lab studies are all reviewed, confusion and weakness in the setting of urinary tract infection post TUR with lactic acid only at 1.1 but bilirubin noted to be 1.7. Will need admission with IV antibiotic treatment for the UTI Still tachypneic, temperature is coming down, still concern for developing sepsis, [address] Salazar, accepts patient to the hospitalist service Discharge Plan Departure Patient Disposition: Admitted As Inpatient Clinical Impression: Urinary tract infection Qualifiers: Urinary tract infection type: acute cystitis Hematuria presence: without hematuria Qualified Code(s): N30.00 - Acute cystitis without hematuria Sepsis Qualifiers: Sepsis type: sepsis due to unspecified organism Sepsis acute organ dysfunction status: without acute organ dysfunction Qualified Code(s): A41.9 - Sepsis, unspecified organism Discharge Date/Time: 04/13/19 19:00 Referrals: Magno Galicia MD [Primary Care Provider] - Admit Date/Time: 04/13/19 17:09 Admit Provider: Vale Salazar
--- NOTE | 2019-04-13 13:34 | DI.RAD.S_ITS ---
PROCEDURE: XR CHEST 1V INDICATIONS: Tachypnea TECHNIQUE: One view of the chest was acquired. COMPARISON: None. FINDINGS: Surgical changes and devices: Patient is status post median sternotomy and CABG. Lungs and pleura: Lungs are clear. No pleural effusions or pneumothorax. Mediastinum: Mediastinal contours appear normal. Heart size is normal. Bones and chest wall: No suspicious bony lesions. Overlying soft tissues appear unremarkable. IMPRESSION: No acute cardiopulmonary findings. Dictated by: Ashanti Smith M.D. on 04/13/2019 at 13:00 Approved by: Ashanti Smith M.D. on 04/13/2019 at 13:01
[2019-04-13 13:48] LABS: Add Manual Diff / Slide Review NO; Basophils Absolute Auto 0 /uL (0-100); Basophils Percent Auto 0.4 % (0-2); Eosinophils Absolute Auto 0 /uL (0-450); Hematocrit 35.5 % (41-53); Hemoglobin 11.9 g/dL (13.5-17.5); Lymphocytes Absolute Auto 800 /uL (1100-4500); Lymphocytes Percent Auto 6.7 % (25-40); Mean Corpuscular HGB Conc 33.5 % (30-36); Mean Corpuscular Hemoglobin 29.5 PG (26-34); Mean Corpuscular Volume 88.1 fL (80-100); Monocytes Absolute Auto 900 /uL (0-900); Monocytes Percent Auto 7.7 % (3-14); Neutrophils Absolute Auto 10400 /uL (1500-7000); Neutrophils Percent Auto 85.2 % (50-75); Platelet Count 198 X10^3/uL (150-400); Red Blood Cell Count 4.03 X10^6/uL (4.5-5.9); Red Cell Distribution Width 16.6 % (11.6-14.8); White Blood Cell Count 12.2 X10^3/uL (4.5-11.0)
[2019-04-13 13:56] LABS: Lactate (Lactic Acid) 1.1 mmol/L (0.7-2.1)
[2019-04-13 13:57] LABS: Alanine Aminotransferase 40 IU/L (<50); Albumin 3.8 g/dL (3.5-5.0); Albumin Globulin Ratio 1.1 (1.0-2.8); Alkaline Phosphatase 46 U/L (38-126); Aspartate Aminotransferase 58 IU/L (17-59); BUN Creatinine Ratio 15.5 (6-22); Bilirubin Total 1.7 mg/dL (0.2-1.3); Blood Urea Nitrogen 17 mg/dL (9-20); Calcium 8.9 mg/dL (8.4-10.2); Carbon Dioxide 29 mmol/L (22-32); Chloride 94 mmol/L (98-107); Estimated Glomerular Filt Rate > 60.0 mL/min (>60); Globulin 3.4 g/dL (1.7-4.1); Glucose 132 mg/dL (80-110); HEMOLYSIS < 15 (0-50); Potassium 3.2 mmol/L (3.4-5.1); Sodium 131 mmol/L (137-145); Total Protein 7.2 g/dL (6.3-8.2)
[2019-04-13] MEDS: ACETAMINOPHEN 325 MG TABLET 975 MG PO (14:05)
[2019-04-13] MEDS: levoFLOXacin 750 MG/150 ML PIGGYBACK 100 MG IV (14:07)
[2019-04-13] MEDS: SODIUM CHLORIDE 0.9% 1,000 ML 200 ML IV ×3 (14:08→20:47)
[2019-04-13 14:16] LABS: Appearance Urine UA SL CLOUDY
[2019-04-13 14:20] LABS: Procalcitonin 0.94 ng/mL (<0.5)
[2019-04-13 14:40] LABS: Bacteria Urine Many (>30); Color Urine UA ORANGE; RBC Urine 10-30/HPF (0-5/HPF); Squamous Epithelial Cell Urine None Seen (0-5/HPF); WBC Urine >100/HPF (0-5/HPF)
[2019-04-13 14:41] LABS: Culture Indicated Urine Specimen Cultured
[2019-04-13] MEDS: POTASSIUM CHLORIDE 20 MEQ TAB 40 MEQ PO (17:24)
[2019-04-13] MEDS: LIDOCAINE 2% (UROJET) 5 ML GEL TOP (18:19)
[2019-04-13] MEDS: SODIUM CHLORIDE 0.9% 1,000 ML 100 ML IV (20:10)
[2019-04-13 20:29] LABS: Magnesium 2.5 mg/dL (1.6-2.3)
[2019-04-13] MEDS: ACETAMINOPHEN 325 MG TABLET 650 MG PO (20:40)
[2019-04-13] MEDS: CEFTRIAXONE 2 GM/50 ML FROZ.PIGGY IV (20:42)
--- NOTE | 2019-04-13 21:32 | P.HP_ITS ---
History of Present Illness History of Present Illness Date Patient Seen: 04/13/19 Time Patient Seen: 21:00 Chief complaint: SOB, weakness, shaking, nausea Narrative: Mr. Juan F Mccallum is a 68-year-old male patient with a complex medical history most significant for coronary artery disease, cardiomyopathy, TIA, GERD with Elder's esophagus, hypertension, hyperlipidemia, hypothyroid, prostatitis with BPH status post transurethral resection of the prostate 10 days ago presents to the ER with fevers chills and malaise. The patient reports undergoing TURP 1 and half weeks ago and since the procedure poorly with lethargy and malaise. Over the last 3 days his symptoms have progressed and had been associated fevers and chills and tachypnea today. Patient has had recurrent episodes urinary tract infections that hip treated unsuccessfully with Levaquin (02/25/2019), Bactrim capital DS (03/08/2019) and Cipro (04/03/2019). Previous urine cultures prove no growth. Patient subsequently underwent transurethral resection of his prostate. The patient has been complaining of fevers and chills, he denies headaches or dizziness, he has no nasal congestion or sore throat. He complains of generalized weakness lethargy and sleeping a lot. He reports shaking chills today. He denies chest pain or palpitations and feels subjectively short of breath but denies cough or wheezing. He has had frequent nausea but no vomiting. He has been straight cathing since surgery. He reports chronic constipation and uses MiraLax at home. Upon arrival to the ER the patient has temperature of 99?, heart rate 95, blood pressure 126/58. He was respiratory rate 14 and saturating 99% on room air. A chest x-ray obtained which finds no acute cardiopulmonary findings. His last EKG was 10/2018 which shows sinus rhythm. On laboratory analysis he has an elevated white count of 12.2, hemoglobin of 11.9 and hematocrit of 35.5 with platelets 198. He has mild hyponatremia at 131, hypokalemia at 3.2. His BUN is 17 and creatinine is 1.1 for an EGFR greater than 60. He has a nonfasting glucose of 132. He has a total bilirubin of 1.7 with an AST of 58, ALT of 40 and alkaline phosphatase of 46. His albumin is 3.8. He has a procalcitonin of 0.94 lactic acid of 1.1. On urinalysis is urine is orange having had Pyridium and is cloudy. Is positive for RBCs, WBCs and many bacteria and reflex to culture. In the ER the patient was given Tylenol for fever and started on Levaquin 750 mg. He has also received potassium 40 mEq by mouth. The patient is admitted to the medicine service for urinary tract infection post TURP. Patient History Medical History Anxiety (Acute) Arthritis (Acute) Back pain (Acute) Elder's esophagus (Acute) CAD (coronary artery disease) (Acute) Cardiomyopathy (Acute) Chest pain (Acute) Chronic back pain (Acute) Depression (Acute) Dysphagia (Acute) GERD (gastroesophageal reflux disease) (Acute) History of sepsis (Acute) History of syncope (Acute) HLD (hyperlipidemia) (Acute) HTN (hypertension) (Acute) Hypothyroid (Acute) Kidney stones (Acute) Neck pain (Acute) Osteoarthritis (Acute) Polyneuropathy (Acute) Prostatitis (Acute) PVC's (premature ventricular contractions) (Acute) RLS (restless legs syndrome) (Acute) Sleep apnea (Acute) TIA (transient ischemic attack) (Acute 10/24/17) Viral meningitis (Acute) Surgical History H/O: vasectomy (Acute) History of penile implant (Acute) History of repair of hiatal hernia (Acute ~01/2017) Hx of cardiac cath (Acute) Hx of cystoscopy (Acute 08/02/17) Hx of cystoscopy (Acute 06/05/18) Hx of right inguinal hernia repair (Acute 10/16/13) S/P CABG x 4 (Acute ~2000) S/P epidural steroid injection (Acute) Family & Social History Social History: household members spouse Safety & Behavioral: Feels Safe in Current Yes Environment Been Physically Hurt or No Threatened By a Person Suicidal Ideation Description None Suicide Plan Description No Plan Tobacco & Substance use: Smoking Status Never smoker alcohol intake former Substance Use Type does not use Comment: The patient lives in a single family home with his . Reports no family history of diabetes or heart disease in his mother or father. Smoking: The patient denies using tobacco products. Alcohol: The patient no longer consumes alcoholic beverages. Substance use: The patient denies recreation pharmaceuticals, herbal or cannabis products. Advanced directives: The patient states his wish to be FULL CODE. He designates his to be surrogate decision maker. Meds Home Medications and Allergies Home Medications Medication Instructions Recorded Confirmed Type ProAir RespiClick 2 inh INHALATION Q4-6H PRN 01/25/19 04/13/19 History cetirizine [Zyrtec] 10 mg PO DAILY 01/25/19 04/13/19 History clopidogrel 75 mg PO DAILY 01/25/19 04/13/19 History cyclobenzaprine 10 mg PO TID PRN 01/25/19 04/13/19 History fluoxetine [Prozac] 30 mg PO DAILY 01/25/19 04/13/19 History fluticasone propionate [Flonase 2 spray INTRANASAL DAILY PRN 01/25/19 04/13/19 History Allergy Relief] furosemide 40 mg PO DAILY 01/25/19 04/13/19 History gabapentin 300 - 600 mg PO QID PRN 01/25/19 04/13/19 History lamotrigine [Lamictal] 200 mg PO DAILY 01/25/19 04/13/19 History levothyroxine 100 mcg PO DAILY 01/25/19 04/13/19 History losartan 50 mg PO DAILY 01/25/19 04/13/19 History pantoprazole 40 mg PO DAILY 01/25/19 04/13/19 History potassium chloride 20 meq PO DAILY 01/25/19 04/13/19 History ropinirole 2 mg PO DAILY 01/25/19 04/13/19 History rosuvastatin [Crestor] 40 mg PO DAILY 01/25/19 04/13/19 History trazodone 50 mg PO DAILY 01/25/19 04/13/19 History oxycodone 5 mg PO Q4H PRN #30 cap 02/05/19 04/13/19 Rx Allergies Allergy/AdvReac Type Severity Reaction Status Date / Time No Known Drug Allergies Allergy Verified 02/05/19 12:00 Review of Systems Review of Systems ROS: Yes All systems reviewed with the patient and are negative except as otherwise documented Exam Vital Signs (past 8 hours): - 04/13/19 14:05 04/13/19 15:19 04/13/19 15:58 Temperature 100.7 F H 99.6 F Pulse Rate 86 88 Respiratory Rate 18 26 H Blood Pressure Blood Pressure [Left Arm] 115/88 115/55 L Pulse Oximetry 92 95 04/13/19 19:14 04/13/19 20:40 04/13/19 21:28 Temperature 98.3 F 100.4 F H 102.9 F H Pulse Rate 86 Respiratory Rate 23 Blood Pressure 138/87 Blood Pressure [Left Arm] Pulse Oximetry 99 Oxygen Delivery Method Room Air Oxygen Flow Rate 0 Narrative Exam Narrative: GENERAL APPEARANCE: well developed, obese male, uncomfortable appearing with chills. HEENT: Normocephalic, PERRLA, sclera is a nectar conjunctiva clear, EOMs intact without nystagmus, no sinus tenderness to percussion, no rhinorrhea, mucous membranes are moist and pink without lesions or exudate. NECK/THYROID: neck supple, no JVD, no carotid bruit, no thyromegaly, trachea midline. LYMPH NODES: no cervical or supraclavicular lymphadenopathy. SKIN: [place], warm and dry, no visible lesions, rashes, ulcerations or petechiae. HEART: regular rate and rhythm, S1-S2, no murmur, no rubs or gallops, brisk capillary refill, no edema LUNGS: clear to auscultation bilaterally, no coarseness crackles or wheezing, no cough present CHEST: Symmetrical movement, no accessory muscle use, good tidal volume. ABDOMEN: Soft, round, dull to percussion, epigastric and lower quadrant pain on palpation, no guarding or peritoneal signs, no organomegaly, no flank tendern ess, active bowel tones.n EXTREMITIES: moves all extremities, strength is 5/5 and symmetrical, no d eformities or joint effusions. NEUROLOGIC: AAO x4, no focal neurologic deficits, cranial nerves II-XII grossly intact, sensation intact to light touch, hearing grossly normal to speech. PSYCH: Mildly anxious, cooperative, stable behavior Objective Labs Result Diagrams: 04/13/19 13:15 04/13/19 13:15 Labs: Laboratory Results - last 24 hr 04/13/19 04/13/19 04/13/19 13:15 13:15 13:15 WBC 12.2 H RBC 4.03 L Hgb 11.9 L Hct 35.5 L MCV 88.1 MCH 29.5 MCHC 33.5 RDW 16.6 H Plt Count 198 Neut % (Auto) 85.2 H Lymph % (Auto) 6.7 L [place] % (Auto) 7.7 Eos % (Auto) 0.0 L Baso % (Auto) 0.4 Neut # (Auto) 00517 H Lymph # (Auto) 800 L [place] # (Auto) 900 Eos # (Auto) 0 Baso # (Auto) 0 Sodium 131 L Potassium 3.2 L Chloride 94 L Carbon Dioxide 29 BUN 17 Creatinine 1.10 Estimated GFR > 60.0 BUN/Creatinine Ratio 15.5 Glucose 132 H Lactate Calcium 8.9 Magnesium Total Bilirubin 1.7 H AST 58 ALT 40 Alkaline Phosphatase 46 Total Protein 7.2 Albumin 3.8 Globulin 3.4 Albumin/Globulin Ratio 1.1 Procalcitonin 0.94 H Urine Color Urine Appearance Urine pH Ur Specific [place] Urine Protein Urine Glucose (UA) Urine Ketones Urine Occult Blood Urine Nitrate Urine Bilirubin Urine Urobilinogen Ur Leukocyte Esterase Urine RBC Urine WBC Ur Squamous Epith Cells Urine Bacteria Ur Culture Indicated? 04/13/19 04/13/19 04/13/19 13:15 13:15 14:13 WBC RBC Hgb Hct MCV MCH MCHC RDW Plt Count Neut % (Auto) Lymph % (Auto) [place] % (Auto) Eos % (Auto) Baso % (Auto) Neut # (Auto) Lymph # (Auto) [place] # (Auto) Eos # (Auto) Baso # (Auto) Sodium Potassium Chloride Carbon Dioxide BUN Creatinine Estimated GFR BUN/Creatinine Ratio Glucose Lactate 1.1 Calcium Magnesium 2.5 H Total Bilirubin AST ALT Alkaline Phosphatase Total Protein Albumin Globulin Albumin/Globulin Ratio Procalcitonin Urine Color [place] Urine Appearance Sl cloudy Urine pH TNP Ur Specific [place] TNP Urine Protein TNP Urine Glucose (UA) TNP Urine Ketones TNP Urine Occult Blood TNP Urine Nitrate TNP Urine Bilirubin TNP Urine Urobilinogen TNP Ur Leukocyte Esterase TNP Urine RBC 10-30/hpf H Urine WBC >100/hpf H Ur Squamous Epith Cells None seen Urine Bacteria Many (>30) H Ur Culture Indicated? Specimen cultured Assessment & Plan Assessment & Plan narrative: 1. Acute urinary tract infection, present on admission, active. -The patient has been unwell since his transurethral prostate resection approxim ately 10 days ago. -he has been self catheterization rising since his surgery, he denies penile or perineal pain. -His symptoms have been progressive developing shortness of breath today. Patient presents with fever and shaking chills with associated nausea worrisome for urosepsis, Blood cultures have been drawn and pending. -Urinalysis reveals cloudy orange urine which is positive for red blood cells, WBCs and many bacteria. -patient has previously been on Cipro Levaquin and Bactrim without apparent resolution of urinary tract infection. There are no recent urine culture results. -patient started on Rocephin 2 g IV every 24 hours pending results of urine culture. -continue patient's home regimen of finasteride 5 mg daily and tamsulosin 0.4 mg daily. -ordered Zofran 4 mg every 8 hours as needed for nausea. 2. Gastroesophageal reflux disorder, present on admission, active Patient with associated diagnosis of Elder's esophagus. Will continue patient's home regimen of metoprolol 40 mg daily. 3. 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 No current complaints of chest pain. Will continue clopidogrel 75 mg daily and Lasix 40 mg daily. 4. Essential hypertension, present on admission, stable Blood pressure on admission to the ER is 126/58. Blood pressures remain stable following admission to the floor. Will continue patient's home regimen no furosemide 40 mg daily and losartan 50 mg daily. 5. Hypothyroidism, stable Will continue patient's home regimen of senna levo thyroxine 100 mcg daily. 6. Chronic lumbar back pain, present on admission, active. Patient has radiculopathy, neuropathy with increasing pain related to immobility. Patient routinely takes gabapentin 900 mg twice daily which is continued. Will continue patient's home medications cyclobenzaprine 10 mg 3 times daily as needed Physical therapy to consult evaluate and treat. 7. Hyperlipidemia, stable Will continue patient's home medication of rosuvastatin 40 mg daily. VTE prophylaxis: SCDs, Lovenox IV fluid: Normal saline 100 cc/hour Diet: Heart healthy The patient is admitted to the hospital due to the severity of his symptoms and risk for potential complications and adverse events. The patient is admitted as an inpatient with expected length of stay to be greater than 2 midnights. Scores GCS Stock[place] coma scale eye opening: Spontaneous [place] coma scale verbal response: Orientated [place] coma scale motor response: Obey commands Stock[place] coma scale total score: 15 SOFA PaO2/FIO2: >=400 mmHg Platelets: >= 150 Bilirubin: 1.2-1.9 mg/dL Hypotension: MAP >= 70 mmHg [place] Coma Scale: 15 Renal: < 1.2 mg/dL SOFA Score: 1
--- NOTE | 2019-04-13 21:46 | PC.NURSE ---
Pt arrived on unit at 1910, A and O x 4, VSS, having had a fever of 100.7 in the ED. He was shaking and c/o being cold. He was given 2 warm blankets and the usual bedding. By 2014 the patient's temp was 100.4 and he was given 650 mg of APAP. By 2129 his temp was 102.9. LIP aware. Pt is not sweating and denies pain. I buprofen will be given. Continue to monitor.
[2019-04-13] MEDS: IBUPROFEN 400 MG TABLET PO (22:04)
[2019-04-14] VITALS (13 sets, daily range): BP systolic 111–138; BP diastolic 41–76; PULSE 58–97; RESP 16–20; TEMP 35.7–39.1; O2SAT 94–98
[2019-04-14] MEDS: ACETAMINOPHEN 325 MG TABLET 975 MG PO ×2 (00:41→08:26)
[2019-04-14] MEDS: SODIUM CHLORIDE 0.9% 1,000 ML 200 ML IV (05:39)
--- NOTE | 2019-04-14 06:33 | PC.NURSE ---
Pt afebrile overnight. Pt diaphoretic x1 overnight requiring gown change. Rated generalized pain 0-1/10 overnight. Pt ordered for scheduled tylenol. Tmax at 0600 96.3 PO. Provider notified, and stated will change tylenol to PRN. Did not give 0600 dose. Pt denies SOB at rest or with ambu to BR. Bld cx pending results. Pt with bilat peripheral neuropathy to bottom of feet and toes. Pt is using call light appropriately to call for SBA to BR. On tele in NSR and sinus brant at 58. Cruz patent, draining dark yellow, cloudy UOP. Monitor for s/s sepsis, ie temperature/hypotension/low UOP. Reinforce safe ambulation.
[2019-04-14 06:54] LABS: Add Manual Diff / Slide Review NO; Basophils Absolute Auto 0 /uL (0-100); Basophils Percent Auto 0.2 % (0-2); Eosinophils Absolute Auto 0 /uL (0-450); Eosinophils Percent Auto 0.3 % (2-4); Hematocrit 36.8 % (41-53); Hemoglobin 12.2 g/dL (13.5-17.5); Lymphocytes Absolute Auto 500 /uL (1100-4500); Lymphocytes Percent Auto 7.2 % (25-40); Mean Corpuscular HGB Conc 33.3 % (30-36); Mean Corpuscular Hemoglobin 29.6 PG (26-34); Monocytes Absolute Auto 700 /uL (0-900); Monocytes Percent Auto 8.9 % (3-14); Neutrophils Absolute Auto 6200 /uL (1500-7000); Neutrophils Percent Auto 83.4 % (50-75); Platelet Count 159 X10^3/uL (150-400); Red Blood Cell Count 4.13 X10^6/uL (4.5-5.9); Red Cell Distribution Width 16.7 % (11.6-14.8); White Blood Cell Count 7.4 X10^3/uL (4.5-11.0)
[2019-04-14 07:10] LABS: BUN Creatinine Ratio 18.9 (6-22); Blood Urea Nitrogen 17 mg/dL (9-20); Calcium 8.7 mg/dL (8.4-10.2); Carbon Dioxide 27 mmol/L (22-32); Chloride 101 mmol/L (98-107); Estimated Glomerular Filt Rate > 60.0 mL/min (>60); Glucose 150 mg/dL (80-110); HEMOLYSIS < 15 (0-50); Potassium 4.2 mmol/L (3.4-5.1); Sodium 135 mmol/L (137-145)
[2019-04-14] MEDS: ENOXAPARIN 40 MG/0.4 ML SYRINGE SUBCUT (08:37)
[2019-04-14] MEDS: FLUoxetine 10 MG CAPSULE 30 MG PO (08:37)
[2019-04-14] MEDS: ROSUVASTATIN 10 MG TABLET 40 MG PO (08:37)
[2019-04-14] MEDS: LEVOTHYROXINE 100 MCG TABLET PO (08:38)
[2019-04-14] MEDS: GABAPENTIN 300 MG CAPSULE 900 MG PO ×2 (08:38→21:28)
[2019-04-14] MEDS: CLOPIDOGREL 75 MG TABLET PO (08:38)
[2019-04-14] MEDS: PANTOPRAZOLE 40 MG TABLET PO (08:38)
[2019-04-14] MEDS: LOSARTAN 50 MG TABLET PO (08:38)
[2019-04-14] MEDS: ROPINIROLE 1 MG TABLET 2 MG PO (08:39)
[2019-04-14] MEDS: ONDANSETRON 4 MG/2 ML INJ IV (10:19)
[2019-04-14] MEDS: SODIUM CHLORIDE 0.9% 1,000 ML 75 ML IV (11:32)
[2019-04-14] MEDS: ACETAMINOPHEN 325 MG TABLET 650 MG PO (14:06)
--- NOTE | 2019-04-14 14:44 | CM.DANOTE ---
Patient is a 68 year old male who was admitted on 04/13/19 for SOB, weakness, fever. Pt has [facility] and [employer] for insurance and his PCP is Dr. Magno Galicia. EMR was reviewed. Per MD and RN during bedside rounds, pt with UTI post TURP 2 weeks ago and has been self cath since then and fever has improved, no pain noted, SBA for transfers and likely here another couple days. SW explained role and updated white board and pt confirms that he lives at home in [place] with his and pt is independent with ADL's at baseline, drives, does not use equipment to ambulate. Pt has had multiple UTI's and one kidney infection when he was in [place] but denies any hx of HH or SNF. Pt states his Urologist is Dr. Driver and MD plans to consult Urologist during pt's stay regarding catheter needs at d/c. Pt does not anticipate any SW needs at d/c and preference is to d/c home with spouse. Pt denies any other local family support but states his is very capable and caring and available to assist at home if needed at d/c. Plan: SW to follow closely for likely plan of d/c home with supportive spouse when medically stable. ORALIA Edwards Discharge Planning/Care Management Advanced directive, confirm from FAMILY Start: 04/13/19 19:36 Freq: Q24H Status: Active Protocol: Document 04/13/19 22:29 SL (Rec: 04/13/19 22:29 SL [id number]) Advance Directive, confirm on record Time 20:30 Person contacted Colleen Mccallum Copy received No CM Discharge Assessment Start: 04/14/19 14:43 Freq: Status: Active Protocol: Document 04/14/19 14:43 BF (Rec: 04/14/19 14:44 BF [id number]) Discharge Planning Assessment Assigned Factory Worker ORALIA Dela Cruz DPOA/Assigned Designee Name Spouse Ting Contact Information [phone] Advance Directives? Yes Advance Directives on File No History Provided By Patient,Medical Record Has Patient been admitted in last 30 No days? Prior Living Arrangements House Household Members spouse Type of transporation used prior to Drives own vehicle admit Independent with ADL's Yes Is patient alert and oriented? Yes Caregiver for Another No Comment Likely home, r/o HH Barriers to Discharge No Discharge Plan Home Transportation Arrangement Spouse available to provide transport when medically stable Referrals Initiated None needed Whiteboard Updated in Patient Room with Yes name and ext. # of Factory Worker Review Status In Process Please Provide Date Initial DC 04/14/19 Assessment Was Performed Next Review Type Continued Stay Review
--- NOTE | 2019-04-14 17:50 | PC.NURSE ---
Addendum entered by Amanda Guthrie R.N. 04/14/19 21:58: Pt resting most of evening. Ibuprofen this evening, temp 99.1 then 98.6 @ 2200 IVF continue as per orders. Tele showing NSR x 2 this shift per ICU staff. Cruz cath patent dark colored urine. Call light w/in reach. Bed alarm on for pt safety. Continue w/plan of care. Original Note: Pt visiting family. Continues w/temp of 102.3. after tylenolMD notified, Lungs clear, SpO2 96% RA. IVF of NS @75cc/hr infusing via pump into LFA w/o incidence. Cruz cath patent dark urine. Call light w/in reach. Pt calls appropriately for needs.
[2019-04-14] MEDS: IBUPROFEN 400 MG TABLET PO (18:18)
--- NOTE | 2019-04-14 18:29 | DI.ECHO.S_ITS ---
[facility]+ [facility] +---------+ : : [address] : : [place] : : : : [id number] : : : : Phone: [phone] Echocardiogram Report + + :Name: HANG HERNANDEZ Study Date: 04/15/2019 Height: 70 in : :[facility] Weight: 260 lb : : Gender: Male BSA: 2.3 m2 : :: 1950 Age: 68 yrs BP: 102/60 mmHg: :Reason For Study: SHORTNESS OF BREATH : :Ordering Physician: Natalia : :Hospitalist Performed By: Lindy Stanton : :Referring: ISABELA MINOR : + + Interpretation Summary Technically difficult study and suboptimal images were obtained. Left ventricular size is at the upper limits of normal. The ejection fraction is estimated to be 50-55%. Moderately dilated both atria. Mild mitral annular calcification. Mild tricuspid regurgitation. Mild-moderately enlarged ascending aorta. Comparison is made with the echocardiogram of 11/13/2013, there has been no significant change. Procedure: A two-dimensional transthoracic echocardiogram with color flow and Doppler was performed. The study quality was technically difficult. Comparison is made with the echocardiogram of 11/13/2013. The patient was in normal sinus rhythm during the exam. Left Ventricle: Left ventricular size is at the upper limits of normal. There is normal left ventricular wall thickness. The ejection fraction is estimated to be 50-55%. There are no obvious focal wall motion abnormalities noted but poor endocardial definition reduces the sensitivity for the detection of such. Right Ventricle: The right ventricle grossly appears normal in size with probable normal systolic function. Atria: Both atria are moderately dilated. There is no Doppler evidence for an interatrial shunt. Mitral Valve: The mitral valve is normal in structure and function. There is mild mitral annular calcification. There is trace mitral regurgitation. Aortic Valve: The aortic valve is trileaflet. The aortic valve opens well. There is no aortic valve stenosis. No aortic regurgitation is present. Tricuspid Valve: The tricuspid valve is normal in structure and function. There is mild tricuspid regurgitation. Pulmonary artery pressures cannot be estimated because of the lack of a measurable TR jet velocity but the IVC suggests a CVP of around 3 mmHg. Pulmonic Valve: The pulmonic valve is not well visualized. There is no pulmonic valvular regurgitation. Great Vessels: The aortic root is normal size. The ascending aorta is mild- moderately enlarged. The IVC is of normal diameter and collapses greater than 50% with a sniff. This suggests a low right atrial pressure of 3 mm Hg. Pericardium/ Pleura There is no pericardial effusion. There is no pleural effusion. MMode/2D Measurements & Calculations LVIDd: 5.6 cm LVOT diam: 2.3 cm LVIDs: 4.2 cm Ao root diam: 3.5 cm FS: 26.0 % asc Aorta Diam: 3.9 cm EPSS: 1.1 cm Ao Arch Diam (Prox Trans): 3.4 cm IVSd: 0.71 cm LVPWd: 0.98 cm LV nur. diameter/BSA (cm/m^2): 2.4 LV sys. diameter/BSA (cm/m^2): 1.8 LA A2 area: 25.5 cm2 RA long axis: 6.0 cm LA A4 area: 29.9 cm2 RA area: 28.3 cm2 LA length (vol): 6.5 cm RA vol: 113.8 ml LA vol: 99.9 ml RA : 48.8 ml/m2 LA vol index: 42.8 ml/m2 IVC diam: 2.1 cm RVD1 (basal): 3.9 cm TAPSE: 1.8 cm Doppler Measurements & Calculations Ao V2 max: 110.3 cm/sec LVOT Max Yoandy: 91.6 cm/sec Ao V2 mean: 81.7 cm/sec LV V1 max P.4 mmHg Ao max P.9 mmHg LV V1 VTI: 18.7 cm Ao mean P.9 mmHg SUNSHINE(I,D): 3.6 cm2 Ao V2 VTI: 21.5 cm SUNSHINE(V,D): 3.4 cm2 sev ratio: 0.87 SUNSHINE indexed to BSA (cm^2/m^2): 1.5 MV E max yoandy: 88.8 cm/sec PA V2 max: 88.3 cm/sec MV A max yoandy: 78.7 cm/sec PA V2 mean: 59.7 cm/sec MV E/A: 1.1 PA mean P.7 mmHg Med Peak E' Yoandy: 9.2 cm/sec PA Accel Time: 0.14 sec E/E' med: 9.7 Lat Peak E' Yoandy: 11.3 cm/sec E/E' lat: 7.9 E/e' average: 8.8 MV dec time: 0.17 sec MV P1/2t: 47.7 msec MV P1/2t max yoandy: 89.4 cm/sec SV(LVOT): 77.7 ml MVA(P1/2t): 4.6 cm2 Electronically signed by: Kailey Villatoro on Reading Physician:04/15/2019 05:38 PM
--- NOTE | 2019-04-14 18:32 | PM.PN.1 ---
Subjective Subjective Date Patient Seen: 04/14/19 Interval history: Patient continues to have fever, nausea, and shortness of breath. Cruz catheter in place. Patient reports having dysphagia associated with nausea for several months. In addition he reports dyspnea on exertion which has been present for several months. He has no cough. Has no chest pain. Exam Vital Signs (past 8 hours): - 04/14/19 14:00 04/14/19 14:06 04/14/19 15:30 Temperature 101.5 F H 101.5 F H 102.3 F H Pulse Rate 90 97 H Respiratory Rate 20 18 Blood Pressure 138/41 L 122/69 Pulse Oximetry 96 94 04/14/19 15:36 04/14/19 16:57 04/14/19 18:18 Temperature 102.3 F H 102 F H 102.0 F H Pulse Rate Respiratory Rate Blood Pressure Pulse Oximetry Oxygen Delivery Method Room Air Oxygen Flow Rate 0 Narrative Exam Narrative: Pleasant ill-appearing male appears uncomfortable Lungs: Decreased breath sounds bilaterally Cardiac exam: Regular rate and rhythm normal S1-S2 Abdomen: Soft nontender nondistended, Cruz catheter in place Extremities: 1+ edema Objective Labs Result Diagrams: 04/14/19 06:32 04/14/19 06:32 Labs: Laboratory Results - last 24 hr 04/13/19 04/14/19 04/14/19 13:15 06:32 06:32 WBC 7.4 RBC 4.13 L Hgb 12.2 L Hct 36.8 L MCV 89.0 MCH 29.6 MCHC 33.3 RDW 16.7 H Plt Count 159 Neut % (Auto) 83.4 H Lymph % (Auto) 7.2 L [place] % (Auto) 8.9 Eos % (Auto) 0.3 L Baso % (Auto) 0.2 Neut # (Auto) 6200 Lymph # (Auto) 500 L [place] # (Auto) 700 Eos # (Auto) 0 Baso # (Auto) 0 Sodium 135 L Potassium 4.2 Chloride 101 Carbon Dioxide 27 BUN 17 Creatinine 0.90 Estimated GFR > 60.0 BUN/Creatinine Ratio 18.9 Glucose 150 H Calcium 8.7 Magnesium 2.5 H Assessment & Plan Assessment & Plan narrative: Acute urinary tract infection, present on admission, active. -The patient has been unwell since his transurethral prostate resection approximately 10 days ago. -he has been self catheterization rising since his surgery, he denies penile or perineal pain. -His symptoms have been progressive developing shortness of breath today. Patient presents with fever and shaking chills with associated nausea worrisome for urosepsis, Blood cultures have been drawn and pending. -Urinalysis reveals cloudy orange urine which is positive for red blood cells, WBCs and many bacteria. -patient has previously been on Cipro Levaquin and Bactrim without apparent resolution of urinary tract infection. There are no recent urine culture results. -patient started on Rocephin 2 g IV every 24 hours pending results of urine culture. -continue patient's home regimen of finasteride 5 mg daily and tamsulosin 0.4 mg daily. -ordered Zofran 4 mg every 8 hours as needed for nausea. -patient remains febrile, urine cultures growing Gram-negative rods, await final culture and sensitivity. May need to switch antibiotics given persistent fever 2. Gastroesophageal reflux disorder, present on admission, active Patient with associated diagnosis of Elder's esophagus. Patient reports dysphagia and odynophagia. Will request GI evaluation for upper endoscopy or swallow eval to evaluate this further 3. 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 No current complaints of chest pain. Will continue clopidogrel 75 mg daily and Lasix 40 mg daily. 4. Essential hypertension, present on admission, stable Blood pressure on admission to the ER is 126/58. Blood pressures remain stable following admission to the floor. Will continue patient's home regimen no furosemide 40 mg daily and losartan 50 mg daily. 5. Hypothyroidism, stable Will continue patient's home regimen of senna levo thyroxine 100 mcg daily. 6. Chronic lumbar back pain, present on admission, active. Patient has radiculopathy, neuropathy with increasing pain related to immobility. Patient routinely takes gabapentin 900 mg twice daily which is continued. Will continue patient's home medications cyclobenzaprine 10 mg 3 times daily as needed Physical therapy to consult evaluate and treat. 7. Hyperlipidemia, stable Will continue patient's home medication of rosuvastatin 40 mg daily. 8. Shortness of breath, -will obtain 2D echo -will decrease IV fluid -will check proBNP And evaluate closely VTE prophylaxis: SCDs, Lovenox IV fluid: Normal saline 75cc/hour Diet: Heart healthy The patient is admitted to the hospital due to the severity of his symptoms and risk for potential complications and adverse events. The patient is admitted as an inpatient with expected length of stay to be greater than 2 midnights. Scores
[2019-04-14] MEDS: MELATONIN 3 MG TABLET 6 MG PO (21:28)
[2019-04-14] MEDS: CEFTRIAXONE 2 GM/50 ML FROZ.PIGGY IV (21:29)
[2019-04-14] MEDS: lamoTRIgine 100 MG TABLET 200 MG PO (21:42)
[2019-04-15] VITALS (13 sets, daily range): BP systolic 94–132; BP diastolic 48–80; PULSE 66–94; RESP 19–21; TEMP 36.7–39.8; O2SAT 93–96
[2019-04-15] MEDS: SODIUM CHLORIDE 0.9% 1,000 ML 75 ML IV ×2 (05:50→19:46)
[2019-04-15] MEDS: LEVOTHYROXINE 100 MCG TABLET PO ×2 (05:50→05:54)
[2019-04-15] MEDS: ACETAMINOPHEN 325 MG TABLET 975 MG PO (05:51)
--- NOTE | 2019-04-15 06:02 | PC.NURSE ---
Tmax 103.6 PO, BP 127/80, RR 20, HR 94. Pt with mild rigors, diaphoretic, reports feeling cold. RR stable but pt appears to work at breathing. Denies SOB at rest. Provider notified. One time order for pt to have 975mg tylenol. Discussed antibiotic regimen and will wait for final culture results. Pt remains of Ceftriaxone 2gm q24hrs. Cruz patent, draining dark yellow cloudy UOP. Denies all pain. Pt states, I don't feel like eating but I am so thirsty. Con't IVF of NS@75//hr. Tele in NSR. Pt fall risk as VSS changes and bilat peripheral neuropathy on bottom of feet. AM labs pending, including procalictonin. Sepsis check sheet used and pt does not meet SIRS critieria by WBC of 7.4, RR 20. Encouraged and reinforced use of IS at bedside. Monitor for increasing s/s infection, reinforce fall precautions, monitor and treat fever for comfor.
[2019-04-15 07:14] LABS: Add Manual Diff / Slide Review NO; Basophils Absolute Auto 0 /uL (0-100); Basophils Percent Auto 0.1 % (0-2); Eosinophils Absolute Auto 0 /uL (0-450); Eosinophils Percent Auto 0.2 % (2-4); Hematocrit 32.6 % (41-53); Hemoglobin 11.2 g/dL (13.5-17.5); Lymphocytes Absolute Auto 500 /uL (1100-4500); Lymphocytes Percent Auto 7.4 % (25-40); Mean Corpuscular HGB Conc 34.3 % (30-36); Mean Corpuscular Hemoglobin 29.7 PG (26-34); Mean Corpuscular Volume 86.8 fL (80-100); Monocytes Absolute Auto 500 /uL (0-900); Monocytes Percent Auto 7.6 % (3-14); Neutrophils Absolute Auto 5800 /uL (1500-7000); Neutrophils Percent Auto 84.7 % (50-75); Platelet Count 187 X10^3/uL (150-400); Red Blood Cell Count 3.76 X10^6/uL (4.5-5.9); Red Cell Distribution Width 16.5 % (11.6-14.8); White Blood Cell Count 6.9 X10^3/uL (4.5-11.0)
[2019-04-15 07:32] LABS: Alanine Aminotransferase 167 IU/L (<50); Alkaline Phosphatase 65 U/L (38-126); Aspartate Aminotransferase 387 IU/L (17-59); BUN Creatinine Ratio 14.4 (6-22); Bilirubin Total 1.1 mg/dL (0.2-1.3); Blood Urea Nitrogen 13 mg/dL (9-20); Calcium 7.9 mg/dL (8.4-10.2); Carbon Dioxide 26 mmol/L (22-32); Chloride 98 mmol/L (98-107); Estimated Glomerular Filt Rate > 60.0 mL/min (>60); Glucose 123 mg/dL (80-110); HEMOLYSIS < 15 (0-50); Potassium 3.1 mmol/L (3.4-5.1); Sodium 130 mmol/L (137-145)
[2019-04-15 07:38] LABS: NT-proBNP (BNP-Adult 18+) 1750 pg/mL (<125)
[2019-04-15] MEDS: GABAPENTIN 300 MG CAPSULE 900 MG PO ×2 (09:15→19:38)
[2019-04-15] MEDS: LOSARTAN 50 MG TABLET PO (09:15)
[2019-04-15] MEDS: ROPINIROLE 1 MG TABLET 2 MG PO (09:15)
[2019-04-15] MEDS: CLOPIDOGREL 75 MG TABLET PO (09:15)
[2019-04-15] MEDS: ROSUVASTATIN 10 MG TABLET 40 MG PO (09:15)
[2019-04-15] MEDS: FLUoxetine 10 MG CAPSULE 30 MG PO (09:15)
[2019-04-15] MEDS: PANTOPRAZOLE 40 MG TABLET PO (09:15)
[2019-04-15] MEDS: ENOXAPARIN 40 MG/0.4 ML SYRINGE SUBCUT (09:15)
[2019-04-15] MEDS: ERTAPENEM 1 GM in SODIUM CHLORIDE 0.9% 100 ML 200 ML IV (12:19)
--- NOTE | 2019-04-15 15:54 | P.PN_ITS ---
Subjective Subjective Date Patient Seen: 04/15/19 Interval history: Patient admitted to the hospital for urinary tract infection following self catheterization. Urine cultures are growing ESBL at this time. Patient was febrile most of the day yesterday. He initially was treated with ceftriaxone and now has switched to ertapenem. He reports his appetite has improved. He has no nausea. He denies any diarrhea or constipation. Patient does report some sore throat but rule notes his shortness of breath has significantly improved Exam Vital Signs (past 8 hours): - 04/15/19 09:00 04/15/19 12:21 04/15/19 14:39 Temperature 99.3 F 98.4 F 99.1 F Pulse Rate 69 69 73 Respiratory Rate 20 20 Blood Pressure 113/53 L 95/59 L 94/48 L Pulse Oximetry 96 96 Oxygen Delivery Method Room Air Oxygen Flow Rate 0 Narrative Exam Narrative: Pleasant elderly male lying in bed in no obvious distress actually looking better today Lungs: Decreased breath sounds but clear to auscultation Cardiac exam regular rate and rhythm normal S1-S2 with a 2/6 systolic ejection murmur Abdomen obese soft nontender nondistended Extremities: Trace edema Objective Labs Result Diagrams: 04/15/19 06:33 04/15/19 06:33 Labs: Laboratory Results - last 24 hr 04/15/19 04/15/19 04/15/19 06:33 06:33 06:33 WBC 6.9 RBC 3.76 L Hgb 11.2 L Hct 32.6 L MCV 86.8 MCH 29.7 MCHC 34.3 RDW 16.5 H Plt Count 187 Neut % (Auto) 84.7 H Lymph % (Auto) 7.4 L [place] % (Auto) 7.6 Eos % (Auto) 0.2 L Baso % (Auto) 0.1 Neut # (Auto) 5800 Lymph # (Auto) 500 L [place] # (Auto) 500 Eos # (Auto) 0 Baso # (Auto) 0 Sodium 130 L Potassium 3.1 L Chloride 98 Carbon Dioxide 26 BUN 13 Creatinine 0.90 Estimated GFR > 60.0 BUN/Creatinine Ratio 14.4 Glucose 123 H Calcium 7.9 L Total Bilirubin 1.1 AST 387 H ALT 167 H Alkaline Phosphatase 65 NT-Pro-B Natriuret Pep Total Protein 6.0 L Albumin 3.0 L Globulin 3.0 Albumin/Globulin Ratio 1.0 Procalcitonin 0.60 H 04/15/19 06:33 WBC RBC Hgb Hct MCV MCH MCHC RDW Plt Count Neut % (Auto) Lymph % (Auto) [place] % (Auto) Eos % (Auto) Baso % (Auto) Neut # (Auto) Lymph # (Auto) [place] # (Auto) Eos # (Auto) Baso # (Auto) Sodium Potassium Chloride Carbon Dioxide BUN Creatinine Estimated GFR BUN/Creatinine Ratio Glucose Calcium Total Bilirubin AST ALT Alkaline Phosphatase NT-Pro-B Natriuret Pep 1750 H Total Protein Albumin Globulin Albumin/Globulin Ratio Procalcitonin Assessment & Plan Assessment & Plan narrative: Acute urinary tract infection, present on admission, active. -The patient has been unwell since his transurethral prostate resection approximately 10 days ago. -he has been self catheterization rising since his surgery, he denies penile or perineal pain. -His symptoms have been progressive developing shortness of breath today. Patient presents with fever and shaking chills with associated nausea worrisome for urosepsis, Blood cultures have been drawn and pending. -patient with ESBL, now on Ertapenem 2. Gastroesophageal reflux disorder, present on admission, active Patient with associated diagnosis of Elder's esophagus. Patient reports dysphagia and odynophagia. Will request GI evaluation for upper endoscopy or swallow eval to evaluate this further Recommend evaluation as outpatient. 3. 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 No current complaints of chest pain. Will continue clopidogrel 75 mg daily and Lasix 40 mg daily. 4. Essential hypertension, present on admission, stable Blood pressure on admission to the ER is 126/58. Blood pressures remain stable following admission to the floor. Given concern about Sepsis and low blood pressure will hold losartan and lasix tonight 5. Hypothyroidism, stable Will continue patient's home regimen of senna levo thyroxine 100 mcg daily. 6. Chronic lumbar back pain, present on admission, active. Patient has radiculopathy, neuropathy with increasing pain related to immobility. Patient routinely takes gabapentin 900 mg twice daily which is continued. Will continue patient's home medications cyclobenzaprine 10 mg 3 times daily as needed Physical therapy to consult evaluate and treat. 7. Hyperlipidemia, stable Will continue patient's home medication of rosuvastatin 40 mg daily. 8. Shortness of breath, -will obtain 2D echo -will decrease IV fluid -will check proBNP And evaluate closely
[2019-04-15 16:00] LABS: Lactate (Lactic Acid) 1.9 mmol/L (0.7-2.1)
[2019-04-15] MEDS: POTASSIUM CHLORIDE 20 MEQ TAB 40 MEQ PO (17:21)
--- NOTE | 2019-04-15 17:21 | PT.IIE ---
Current Diagnoses Urinary tract infection, site not specified (04/13/19) Surgical History (Last Reviewed 04/14/19 @ 08:54 by Dara Rodrigues MD) H/O: vasectomy (Acute) History of penile implant (Acute) History of repair of hiatal hernia (Acute ~01/2017) Hx of cardiac cath (Acute) Hx of cystoscopy (Acute 08/02/17) Hx of cystoscopy (Acute 06/05/18) Hx of right inguinal hernia repair (Acute 10/16/13) S/P CABG x 4 (Acute ~2000) S/P epidural steroid injection (Acute) Medical History (Last Reviewed 04/14/19 @ 08:54 by Dara Rodrigues MD) Anxiety (Acute) Arthritis (Acute) Back pain (Acute) Elder's esophagus (Acute) CAD (coronary artery disease) (Acute) Cardiomyopathy (Acute) Chest pain (Acute) Chronic back pain (Acute) Depression (Acute) Dysphagia (Acute) GERD (gastroesophageal reflux disease) (Acute) History of sepsis (Acute) History of syncope (Acute) HLD (hyperlipidemia) (Acute) HTN (hypertension) (Acute) Hypothyroid (Acute) Kidney stones (Acute) Neck pain (Acute) Osteoarthritis (Acute) Polyneuropathy (Acute) Prostatitis (Acute) PVC's (premature ventricular contractions) (Acute) RLS (restless legs syndrome) (Acute) Sleep apnea (Acute) TIA (transient ischemic attack) (Acute 10/24/17) Viral meningitis (Acute) Physical Therapy Inpatient Evaluation M1 PT/OT-IP Prior Functional Status Start: 04/15/19 15:44 Freq: NEEDED Status: Active Protocol: Document 04/15/19 17:00 AW (Rec: 04/15/19 17:20 AW [id number]) Medical Review Prior Functional Status Medical History Reviewed Yes Communication Pt is an effective verbal communicator Mobility and Gait Independent. Activities of Daily Living and IADL's Independent Prior Functional Level (Other details) Until recent illness, pt was working out 3x/week - both aerobic and resistance training. Social History Household Members spouse Living Arrangements House Number of Floors (Floors) One Floor Number of Stairs To Enter/Railing? 1 step --> landing --> threshold with left rail ascending Home Environment High Toilet,Walk in Shower Home Equipment Front Wheel Walker,Straight Cane,Crutches,Hospital Bed Employment Status Retired Additional Social History Comment Pt lives with his , Colleen, who is also retired. She has been able to provide as much assist as pt needs. M2 PT-IP Current Condition Start: 04/15/19 15:44 Freq: NEEDED Status: Active Protocol: Document 04/15/19 17:00 AW (Rec: 04/15/19 17:20 AW [id number]) Physical Therapy Current Condition Current Condition Evaluation Date 04/15/19 Treatment Diagnosis acute UTI, impaired mobility Onset Date 04/13/19 Precautions Other Precautions enteric precautions in place at time of evaluation M3 PT-IP Subjective Start: 04/15/19 15:44 Freq: NEEDED Status: Active Protocol: Document 04/15/19 17:00 AW (Rec: 04/15/19 17:20 AW [id number]) Subjective Physical Therapy Visit Type Type Initial Evaluation Visit Start Time 16:31 Visit Stop Time 16:55 Total Visit Minutes 24 Notes Pt's spouse present throughout evaluation Number of SHELL [place]EM[place]ER Visits 0 Physical Therapy Visit Comments Patient Comments Pt is happy to mobilize with PT Patient Goals Pt hopes to return home with his 's assistance Therapy Pain Assessment Pain When Pain Assessed During Mobility Pain Present Pain Present Denied Pain M4 PT-IP Mobility and Gait Start: 04/15/19 15:44 Freq: NEEDED Status: Active Protocol: Document 04/15/19 17:00 AW (Rec: 04/15/19 17:20 AW [id number]) PT-Bed Mobility Assessment Supine to Sit Supine to Sit Standby Assistance Scooting Scooting to Edge of Bed Standby Assistance PT-Transfer Assessment Sit to and From Stand Sit to and from Stand Standby Assistance,1 Person Assistance,Use of Upper Extremities Equipment Transfer Assistive Device Gait Belt,Front Wheeled Walker Orthotic/Prosthetic Devices or Brace: No Transfers Transfer Destination Chair Transfer Technique pt ambulated with FWW Transfer Ability Level of Assist Contact Guard Assistance Comments Mobility Comments Pt completed all bed mobility SBA and required CGA and help with line management for transfers. He was shaky with standing but did not become short of breath with standing only. After gait assessment, pt returned to the room and transferred to the chair CGA and cues for proper walker management. He was positioned in the chair with call light and all needs within reach. supine prior to activity: BP 125/69 HR 71 sitting after activity: BP 144 /80 HR 82 Gait Assessment Gait Gait Assistance Required: Standby Assistance Distance (Feet) 220 Assistive Devices Assistive Device Gait Belt,Front Wheeled Walker Orthotic/Prosthetic Devices or Brace: No Gait Deviations General Gait Pattern Decreased Stride Length, Decreased Feet Clearance, Flexed Trunk Factors Limiting Gait Function Factors Limiting Gait Function Decreased Activity Tolerance, Decreased Strength,Poor Balance Comments Gait Comments Pt ambulated in the hallway ~ 220 feet with FWW SBA. He stated it felt good to be up and moving around. Pt became mildly short of breath after ~ 150 feet but declined rest break and continued back to the room. Will plan to assess gait with SPC at next meeting. Stair Climbing Assessment Comments Stair Climbing Comments Not assessed. PT-Balance Assessment Sitting Balance and Reactions Static Sitting Balance Ability Normal Dynamic Sitting Balance Ability Good Standing Balance and Reactions Static Standing Balance Ability Good Dynamic Standing Balance Ability Good Device Used FWW M5 PT-IP Objective Assessments Start: 04/15/19 15:44 Freq: NEEDED Status: Active Protocol: Document 04/15/19 17:00 AW (Rec: 04/15/19 17:20 AW [id number]) Orientation Orientation/Cognition Level of Alertness Alert Orientation Name,Day of Week,Place, Situation Language Function Ability No Deficits Noted Safety Awareness Understands Safety Issues Memory Description No Deficits Noted Comments Pt has good insight into his limitations. He is not opposed to using an assisitive device if needed. Gross Range of Motion Lower Extremity ROM Assessment Within Functional Limits Strength Lower Extremity Strength Assessment Within Functional Limits Comments Strength Comments BLE grossly 4+/5 Coordination Assessment Gross Coordination Gross Coordination WNL Sensation Assessment Sensation Gross Sensation WNL M6 PT-IP Treatment Start: 04/15/19 15:44 Freq: NEEDED Status: Active Protocol: Document 04/15/19 17:00 AW (Rec: 04/15/19 17:20 AW [id number]) Physical Therapy Treatment Education Education Provided Precautions,Safety Other Treatments Other Treatment Performed Provided education on role of PT, plan of care, goal-setting for increasing activity, and selection of appropriate assistive device. M7 PT-IP Assessment and Plan Start: 04/15/19 15:44 Freq: NEEDED Status: Active Protocol: Document 04/15/19 17:00 AW (Rec: 04/15/19 17:20 AW [id number]) PT Summary Assessment and Plan Potential Rehabilitation Potential Excellent Status of Condition at Evaluation Evolving Summary Impairments Strength,Balance,Transfers, Gait,Activity Tolerance Assessment Summary Josh is a 68 yo man admitted with acute UTI. At baseline, he is active and independent in all regards. He had a medical compartment knee arthroplasty at the end of January 2019 and recently underwent TURP 12 days ago. Since that time, he has been self-catheterizing and has become increasingly weak and immobile. On evaluation, pt's mentation was clear and he required no more than CGA for mobility. Pt used a FWW for ambulation today and he has no resistance to using an assistive device in the short term if needed. Pt will likely be safe to discharge back home with spouse assist but would benefit from outpatient PT to increase BLE strength and conditioning for improved exercise tolerance. Goals Bed Mobility Goal Independent Transfer Goal Independent,Cane,Front Wheeled Walker Gait Goal Independent,Cane,Front Wheel Walker Gait Distance 300 Other Goals - up/down 2 stairs with left rail ascending SBA - transfer and ambulation goals to be achieved with LRAD Days to Meet Goals 3 Frequency of Treatment Frequency Of Treatment Once a Day Treatment Plan Physical Therapy Treatment Plan Bed Mobility Training,Transfer Training,Gait Training, Therapeutic Exercise,Balance Retraining,Discharge Planning, Hot or Cold Pack,Neuromuscular Re-ed Other Recommendations and Next Treatment assess gait/safety with SPC; Focus assess safety on stairs Recommendations To Nursing Amount of Assist Needed Standby Assistance Discharge Recommendations PT Discharge Recommendations Home with Assistance, Outpatient PT Transportation Needs at Discharge Private Vehicle
--- NOTE | 2019-04-15 17:30 | PC.NURSE ---
Addendum entered by Amanda Guthrie R.N. 04/15/19 22:58: red tube nasal swab done and sent to lab. Addendum entered by Amanda Guthrie R.N. 04/15/19 21:04: Temp at 1950 = 102.6, Tylenol given as per orders, @ 2049 = 98.9 IVF continue as per order. Cruz cath patent dark urine. Call light w/in reach, bed alrm on for pt safety. Continue as per plan of care. Original Note: Pt visiting w/family. Denies discomfort at this time. Ambulated in hallway w/PT w/o incidence. IVF infusing via pump into LFA w/o incidence. Tele showing NSR per ICU staff Stable post op course. Call light w/in reach, pt calls appropriately for needs.
[2019-04-15] MEDS: MELATONIN 3 MG TABLET 6 MG PO (19:39)
[2019-04-15] MEDS: lamoTRIgine 100 MG TABLET 200 MG PO (19:40)
[2019-04-15] MEDS: ACETAMINOPHEN 325 MG TABLET 650 MG PO (19:45)
[2019-04-15 20:10] LABS: Procalcitonin 0.57 ng/mL (<0.5)
[2019-04-16 00:09] LABS: Adenovirus Not Detected (Not Detect); Coronavirus 229E Not Detected (Not Detect); Coronavirus HKU1 Not Detected (Not Detect); Coronavirus NL 63 Not Detected (Not Detect); Coronavirus OC43 Not Detected (Not Detect); Human Metapneumovirus Not Detected (Not Detect)
[2019-04-16 00:10] LABS: Bordetella pertussis Not Detected (Not Detect); Chlamydophila pneumoniae Not Detected (Not Detect); Human Rhinovirus/Enterovirus Not Detected (Not Detect); Influenza A Not Detected (Not Detect); Influenza B Not Detected (Not Detect); Mycoplasma pneumoniae Not Detected (Not Detect); Parainfluenza Virus 1 Not Detected (Not Detect); Parainfluenza Virus 2 Not Detected (Not Detect); Parainfluenza Virus 3 Not Detected (Not Detect); Parainfluenza Virus 4 Not Detected (Not Detect); Respiratory Syncytial Virus Not Detected (Not Detect)
[2019-04-16 00:20] VITALS: BP 149/57; PULSE 59; RESP 20; TEMP 35.8; O2SAT 96
--- NOTE | 2019-04-16 02:18 | PC.NURSE ---
Patient seen and assessed at 0019. Is alert and oriented. Breath sounds diminished but CTA with RA sat of 96%; on continuous oximetry per orders. HRR with rate of 59. BP elevated at 149/57. Currently skin warm and moist; had earlier elevated temp but now afebrile. Denies nausea. BT present and abdomen is soft. Indwelling catheter is patent. Able to turn self in bed. When up is using walker and 1 assist; reports he has some dizziness when up. Chronic neuropathy in bilateral feet. Bruising noted in right AC; patient reports from lab draws. Wearing bilateral calf SCD's. Denies pain. Is on contact isolation due to ESBL in urine. Fall risk score is high and bed alarm is activated. rooming in.
[2019-04-16 04:38] VITALS: BP 132/80; PULSE 57; RESP 20; TEMP 36.6; O2SAT 97
[2019-04-16] MEDS: LEVOTHYROXINE 100 MCG TABLET PO (06:01)
[2019-04-16 06:29] LABS: Add Manual Diff / Slide Review NO; Basophils Absolute Auto 0 /uL (0-100); Basophils Percent Auto 0.3 % (0-2); Eosinophils Absolute Auto 100 /uL (0-450); Hematocrit 34.3 % (41-53); Hemoglobin 11.4 g/dL (13.5-17.5); Lymphocytes Absolute Auto 900 /uL (1100-4500); Lymphocytes Percent Auto 17.2 % (25-40); Mean Corpuscular HGB Conc 33.4 % (30-36); Mean Corpuscular Hemoglobin 29.4 PG (26-34); Mean Corpuscular Volume 88.2 fL (80-100); Monocytes Absolute Auto 500 /uL (0-900); Monocytes Percent Auto 8.6 % (3-14); Neutrophils Absolute Auto 3900 /uL (1500-7000); Neutrophils Percent Auto 72.9 % (50-75); Platelet Count 176 X10^3/uL (150-400); Red Blood Cell Count 3.88 X10^6/uL (4.5-5.9); Red Cell Distribution Width 16.8 % (11.6-14.8); White Blood Cell Count 5.3 X10^3/uL (4.5-11.0)
[2019-04-16 06:33] LABS: BUN Creatinine Ratio 13.9 (6-22); Blood Urea Nitrogen 11 mg/dL (9-20); Calcium 8.4 mg/dL (8.4-10.2); Carbon Dioxide 28 mmol/L (22-32); Chloride 103 mmol/L (98-107); Estimated Glomerular Filt Rate > 60.0 mL/min (>60); Glucose 115 mg/dL (80-110); HEMOLYSIS < 15 (0-50); Potassium 3.6 mmol/L (3.4-5.1); Sodium 135 mmol/L (137-145)
[2019-04-16 08:26] VITALS: BP 136/84; PULSE 65; RESP 18; TEMP 36.7; O2SAT 98
[2019-04-16] MEDS: ENOXAPARIN 40 MG/0.4 ML SYRINGE SUBCUT (08:53)
[2019-04-16] MEDS: CLOPIDOGREL 75 MG TABLET PO (08:53)
[2019-04-16] MEDS: PANTOPRAZOLE 40 MG TABLET PO (08:53)
[2019-04-16] MEDS: GABAPENTIN 300 MG CAPSULE 900 MG PO ×2 (08:54→20:28)
[2019-04-16] MEDS: ROPINIROLE 1 MG TABLET 2 MG PO (08:54)
[2019-04-16] MEDS: FLUoxetine 10 MG CAPSULE 30 MG PO (08:54)
[2019-04-16] MEDS: ROSUVASTATIN 10 MG TABLET 40 MG PO (08:54)
[2019-04-16] MEDS: ERTAPENEM 1 GM in SODIUM CHLORIDE 0.9% 100 ML 150 ML IV (11:03)
[2019-04-16 12:00] VITALS: BP 125/70; PULSE 77; RESP 18; TEMP 37; O2SAT 96
--- NOTE | 2019-04-16 14:59 | PT.IPTN ---
Current Diagnoses Urinary tract infection, site not specified (04/13/19) Physical Therapy Treatment Note M2 PT-IP Current Condition Start: 04/15/19 15:44 Freq: NEEDED Status: Active Protocol: Document 04/15/19 17:00 AW (Rec: 04/15/19 17:20 AW [id number]) Physical Therapy Current Condition Current Condition Evaluation Date 04/15/19 Treatment Diagnosis acute UTI, impaired mobility Onset Date 04/13/19 Precautions Other Precautions enteric precautions in place at time of evaluation M3 PT-IP Subjective Start: 04/15/19 15:44 Freq: NEEDED Status: Active Protocol: Document 04/16/19 14:51 AW (Rec: 04/16/19 14:59 AW [email or web address]) Subjective Physical Therapy Visit Type Type Treatment Note Visit Start Time 12:26 Visit Stop Time 12:44 Total Visit Minutes 18 Notes Pt's spouse present throughout session Number of CHAR CONVEYOR TENDER CELLAR Visits 0 Physical Therapy Visit Comments Patient Comments Pt looking forward to getting up for a walk Therapy Pain Assessment Pain When Pain Assessed During Mobility Pain Present Pain Present Denied Pain M4 PT-IP Mobility and Gait Start: 04/15/19 15:44 Freq: NEEDED Status: Active Protocol: Document 04/16/19 14:51 AW (Rec: 04/16/19 14:59 AW [email or web address]) PT-Bed Mobility Assessment Supine to Sit Supine to Sit Standby Assistance Scooting Scooting to Edge of Bed Standby Assistance PT-Transfer Assessment Sit to and From Stand Sit to and from Stand Standby Assistance,1 Person Assistance,Use of Upper Extremities Equipment Transfer Assistive Device Gait Belt,Front Wheeled Walker Orthotic/Prosthetic Devices or Brace: No Transfers Transfer Destination Chair Transfer Technique pt ambulated with FWW Transfer Ability Level of Assist Standby Assistance,Use of Upper Extremities Comments Mobility Comments Pt completed all bed mobility and transfers SBA. He was more steady this date compared with yesterday. Gait Assessment Gait Gait Assistance Required: Standby Assistance Distance (Feet) 440 Assistive Devices Assistive Device Gait Belt,Front Wheeled Walker Orthotic/Prosthetic Devices or Brace: No Gait Deviations General Gait Pattern Decreased Stride Length, Decreased Feet Clearance, Flexed Trunk Factors Limiting Gait Function Factors Limiting Gait Function Decreased Activity Tolerance, Decreased Strength,Poor Balance Comments Gait Comments Pt walked around the nurses station twice using FWW SBA. He showed no sign of labored breathing. When queried about use of SPC, pt stated he felt he needed the FWW at this time and would be happy using it at home. FWW fits through all doors at home and into the bathroom. Stair Climbing Assessment Evaluation Level of Assist On Stairs Contact Guard Assistance Devices Stair Climbing Assistive Devices Left Railing Technique/Endurance Stair Climbing Direction Ascend and Descend Stair Climbing Technique Step Over Step,Step to Step Number of Steps Climbed 3 Stair Climbing Set # Repetitions (reps) 2 Comments Stair Climbing Comments Pt was able to navigate up stairs step over step CGA and down stairs step-to CGA. M5 PT-IP Objective Assessments Start: 04/15/19 15:44 Freq: NEEDED Status: Active Protocol: Document 04/15/19 17:00 AW (Rec: 04/15/19 17:20 AW [id number]) Orientation Orientation/Cognition Level of Alertness Alert Orientation Name,Day of Week,Place, Situation Language Function Ability No Deficits Noted Safety Awareness Understands Safety Issues Memory Description No Deficits Noted Comments Pt has good insight into his limitations. He is not opposed to using an assisitive device if needed. Gross Range of Motion Lower Extremity ROM Assessment Within Functional Limits Strength Lower Extremity Strength Assessment Within Functional Limits Comments Strength Comments BLE grossly 4+/5 Coordination Assessment Gross Coordination Gross Coordination WNL Sensation Assessment Sensation Gross Sensation WNL M6 PT-IP Treatment Start: 04/15/19 15:44 Freq: NEEDED Status: Active Protocol: Document 04/16/19 14:51 AW (Rec: 04/16/19 14:59 AW [email or web address]) Physical Therapy Treatment Education Education Provided Precautions,Safety M7 PT-IP Assessment and Plan Start: 04/15/19 15:44 Freq: NEEDED Status: Active Protocol: Document 04/16/19 14:51 AW (Rec: 04/16/19 14:59 AW [email or web address]) PT Summary Assessment and Plan Summary Impairments Strength,Balance,Transfers, Gait,Activity Tolerance Progress Towards Goals Progressing Toward Goals Assessment Summary Josh required less assist today and demonstrated improved activity tolerance with all mobility. He is showing good effort with all activities and is highly motivated to improve his functional capacity. Continue to recommend discharge to home with assist and outpatient PT for improved activity tolerance and BLE strengthening. Goals Bed Mobility Goal Independent Transfer Goal Independent,Cane,Front Wheeled Walker Gait Goal Independent,Cane,Front Wheel Walker Gait Distance 300 Other Goals - up/down 2 stairs with left rail ascending SBA - transfer and ambulation goals to be achieved with LRAD Days to Meet Goals 3 Frequency of Treatment Frequency Of Treatment Once a Day Treatment Plan Physical Therapy Treatment Plan Bed Mobility Training,Transfer Training,Gait Training, Therapeutic Exercise,Balance Retraining,Discharge Planning, Hot or Cold Pack,Neuromuscular Re-ed Other Recommendations and Next Treatment inquire about energy level for Focus SPC; assess gait with SPC if appropriate; repeat stair training; progress gait distance as tolerated. Recommendations To Nursing Amount of Assist Needed Standby Assistance Discharge Recommendations PT Discharge Recommendations Home with Assistance, Outpatient PT Transportation Needs at Discharge Private Vehicle
--- NOTE | 2019-04-16 15:47 | CM.DPC ---
DCP/continued: Received verbal referral from provider/Dr. Salazar she anticipates that patient will need IV abx at time of d/c. PICC line has not been order or placed. Late afternoon, Dr. Salazar reports that patient might not need IV abx. Therefore, PICC placement on hold. 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 CM team will need to follow up with them. Did not speak to them over telephone today, only faxed clinical. P: Pending. Patient would benefit from CM visit once d/c disposition confirmed. Continue to follow. ORALIA Aguilar
[2019-04-16 16:15] VITALS: BP 122/75; PULSE 60; RESP 18; TEMP 37.3; O2SAT 95
--- NOTE | 2019-04-16 17:44 | PM.PN.1 ---
Subjective Subjective Date Patient Seen: 04/16/19 Interval history: Patient is a 68-year-old male who was admitted to the hospital for urinary tract infection. Patient has ESBL growing in the urine. He complained of shortness of breath and had a cardiac echo in chest x-ray which were essentially unremarkable. Patient has been afebrile for the past 24 hours. Patient denies any diarrhea nausea or pain. Overall he feels significantly improved. Exam Vital Signs (past 8 hours): - 04/16/19 12:00 04/16/19 16:15 Temperature 98.6 F 99.2 F Pulse Rate 77 60 Respiratory Rate 18 18 Blood Pressure 125/70 122/75 Pulse Oximetry 96 95 Oxygen Delivery Method Room Air Oxygen Flow Rate 0 Narrative Exam Narrative: Pleasant gentleman resting comfortably in no obvious distress Lungs: Clear to auscultation Cardiac exam: Regular rate and rhythm normal S1-S2 Abdomen: Soft nontender nondistended Extremities: No edema Cruz catheter in place Objective Labs Result Diagrams: 04/16/19 06:01 04/16/19 06:01 Labs: Laboratory Results - last 24 hr 04/15/19 04/15/19 04/16/19 17:47 22:55 06:01 WBC 5.3 RBC 3.88 L Hgb 11.4 L Hct 34.3 L MCV 88.2 MCH 29.4 MCHC 33.4 RDW 16.8 H Plt Count 176 Neut % (Auto) 72.9 Lymph % (Auto) 17.2 L [place] % (Auto) 8.6 Eos % (Auto) 1.0 L Baso % (Auto) 0.3 Neut # (Auto) 3900 Lymph # (Auto) 900 L [place] # (Auto) 500 Eos # (Auto) 100 Baso # (Auto) 0 Sodium Potassium Chloride Carbon Dioxide BUN Creatinine Estimated GFR BUN/Creatinine Ratio Glucose Calcium Procalcitonin 0.57 H Chlamy pneumoniae PCR Not detected Adenovirus (PCR) Not detected B.parapertussis DNA PCR Not detected Coronavirus OC43 (PCR) Not detected Coronavirus HKU1 (PCR) Not detected Coronavirus 229E (PCR) Not detected Coronavirus NL63 (PCR) Not detected Human Metapneumovir PCR Not detected Influenza Type A (PCR) Not detected Influenza Type B (PCR) Not detected M. pneumoniae (PCR) Not detected Parainfluenza 1 (PCR) Not detected Parainfluenza 2 (PCR) Not detected Parainfluenza 3 (PCR) Not detected Parainfluenza 4 (PCR) Not detected RSV (PCR) Not detected Entero/Rhino (PCR) Not detected 04/16/19 06:01 WBC RBC Hgb Hct MCV MCH MCHC RDW Plt Count Neut % (Auto) Lymph % (Auto) [place] % (Auto) Eos % (Auto) Baso % (Auto) Neut # (Auto) Lymph # (Auto) [place] # (Auto) Eos # (Auto) Baso # (Auto) Sodium 135 L Potassium 3.6 Chloride 103 Carbon Dioxide 28 BUN 11 Creatinine 0.79 Estimated GFR > 60.0 BUN/Creatinine Ratio 13.9 Glucose 115 H Calcium 8.4 Procalcitonin Chlamy pneumoniae PCR Adenovirus (PCR) B.parapertussis DNA PCR Coronavirus OC43 (PCR) Coronavirus HKU1 (PCR) Coronavirus 229E (PCR) Coronavirus NL63 (PCR) Human Metapneumovir PCR Influenza Type A (PCR) Influenza Type B (PCR) M. pneumoniae (PCR) Parainfluenza 1 (PCR) Parainfluenza 2 (PCR) Parainfluenza 3 (PCR) Parainfluenza 4 (PCR) RSV (PCR) Entero/Rhino (PCR) Assessment & Plan Assessment & Plan narrative: Acute urinary tract infection, present on admission, active. -The patient has been unwell since his transurethral prostate resection approximately 10 days ago. -he has been self catheterization rising since his surgery, he denies penile or perineal pain. -His symptoms have been progressive developing shortness of breath today. Patient presents with fever and shaking chills with associated nausea worrisome for urosepsis, Blood cultures have been drawn and pending. -patient with ESBL, now on Ertapenem -patient prefers indwelling Cruz catheter, will consult with urology tomorrow regarding catheter verses self catheterization -ESBL sensitive to Bactrim and nitrofurantoin. Will switch to Bactrim tomorrow and anticipate discharge home 2. Gastroesophageal reflux disorder, present on admission, active Patient with associated diagnosis of Elder's esophagus. Patient reports dysphagia and odynophagia. Will request GI evaluation for upper endoscopy or swallow eval to evaluate this further Recommend evaluation as outpatient. 3. 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 No current complaints of chest pain. Will continue clopidogrel 75 mg daily and Lasix 40 mg daily. 4. Essential hypertension, present on admission, stable Blood pressure on admission to the ER is 126/58. Blood pressures remain stable following admission to the floor. Given concern about Sepsis and low blood pressure will hold losartan and lasix tonight 5. Hypothyroidism, stable Will continue patient's home regimen of senna levo thyroxine 100 mcg daily. 6. Chronic lumbar back pain, present on admission, active. Patient has radiculopathy, neuropathy with increasing pain related to immobility. Patient routinely takes gabapentin 900 mg twice daily which is continued. Will continue patient's home medications cyclobenzaprine 10 mg 3 times daily as needed Physical therapy to consult evaluate and treat. 7. Hyperlipidemia, stable Will continue patient's home medication of rosuvastatin 40 mg daily. 8. Shortness of breath, -echocardiogram reveals ejection fraction of 50-55% -there is biatrial enlargement -no further shortness of breath And evaluate closely
[2019-04-16 19:00] VITALS: BP 127/88; PULSE 73; RESP 20; TEMP 37.5; O2SAT 95
[2019-04-16] MEDS: lamoTRIgine 100 MG TABLET 200 MG PO (20:28)
[2019-04-16] MEDS: MELATONIN 3 MG TABLET 6 MG PO (22:46)
[2019-04-17] VITALS: BP 132/81; PULSE 61; RESP 18; TEMP 36.4; O2SAT 96
--- NOTE | 2019-04-17 01:19 | PC.NURSE ---
Patient seen and assessed at 2334. Is alert and oriented. Breath sounds CTA with RA sat of 95%; per Pablo KENNEY, continuous pulse oximetry stopped per patient request. HRR. Denies nausea. BT present and reports having had BM earlier. Continues to have indwelling catheter due to recent TURP and need to self cath prior to hospitalization; MD plans to discuss with urology whether to leave in or remove. Is able to turn himself in bed. When up, patient reports he is using walker and 1 assist. Denies pain. Wearing bilateral calf SCD's. Remains on contact isolation due to ESBL in urine. Fall risk score is high and bed alarm is activated.
[2019-04-17 05:00] VITALS: BP 131/78; PULSE 61; RESP 16; TEMP 36.8; O2SAT 96
[2019-04-17] MEDS: LEVOTHYROXINE 100 MCG TABLET PO (05:37)
[2019-04-17] MEDS: SODIUM CHLORIDE 0.9% FLUSH 10 ML IV (07:45)
--- NOTE | 2019-04-17 08:10 | PT.IPTN ---
Current Diagnoses Urinary tract infection, site not specified (04/13/19) Physical Therapy Treatment Note M2 PT-IP Current Condition Start: 04/15/19 15:44 Freq: NEEDED Status: Active Protocol: Document 04/15/19 17:00 AW (Rec: 04/15/19 17:20 AW [id number]) Physical Therapy Current Condition Current Condition Evaluation Date 04/15/19 Treatment Diagnosis acute UTI, impaired mobility Onset Date 04/13/19 Precautions Other Precautions enteric precautions in place at time of evaluation M3 PT-IP Subjective Start: 04/15/19 15:44 Freq: NEEDED Status: Active Protocol: Document 04/17/19 07:40 SP (Rec: 04/17/19 08:55 SP [id number]) Subjective Physical Therapy Visit Type Type Treatment Note Visit Start Time 07:40 Visit Stop Time 08:10 Total Visit Minutes 30 Notes Pt provided assist throughout treatment CGA, complete caregiver training this am. Number of STEEL INSPECTOR Visits 1 Physical Therapy Visit Comments Patient Comments Pt willing to work with PT this am before breakfast. Patient Goals Pt stated ready to return home with his 's assistance Therapy Pain Assessment Pain Present Pain Present Denied Pain M4 PT-IP Mobility and Gait Start: 04/15/19 15:44 Freq: NEEDED Status: Active Protocol: Document 04/17/19 07:40 SP (Rec: 04/17/19 08:55 SP [id number]) PT-Bed Mobility Assessment Supine to Sit Supine to Sit Independent PT-Transfer Assessment Sit to and From Stand Sit to and from Stand Standby Assistance,Use of Upper Extremities Equipment Transfer Assistive Device Gait Belt,Front Wheeled Walker Orthotic/Prosthetic Devices or Brace: No Transfers Transfer Destination Chair Transfer Technique pt ambulated with FWW and SPC Transfer Ability Level of Assist Standby Assistance,Use of Upper Extremities Comments Mobility Comments Pt was laying in bed with nurse and in room when arrived. Completed supine> sitting and scoot to EOB using BUE for self support Mod I with HOB flat. Sit to stand SBA with FWW or SPC for self balance support as needed, stable. Step pivot transfer bed to chair using FWW and SPC CGA, stable no LOB or deviations. See gait and stair mgt comments. Pt requested how do I reach back while using SPC and provided instruction SPC in R hand while use heel of hand and LUE to support self good slow graded descent in chair. Pt was seated in chair with call light and all needs in reach when left. Gait Assessment Gait Gait Assistance Required: Standby Assistance,Contact Guard Assist Distance (Feet) 440 Assistive Devices Assistive Device Gait Belt,Straight Cane,Front Wheeled Walker Orthotic/Prosthetic Devices or Brace: No Gait Deviations General Gait Pattern Decreased Stride Length, Decreased Feet Clearance, Flexed Trunk Factors Limiting Gait Function Factors Limiting Gait Function Decreased Activity Tolerance, Decreased Strength,Poor Balance Comments Gait Comments Pt was able to ambulate using SPC approx 535 ft 2.5 laps around nursing station requiring CGA for safety while assessing gait LRAD. Pt demonstrated intermittent wt shift deviations mainly to R on straight distance and turns with self corrections, support provided by for safety. Good patterning SPC in LUE with RLE. STEEL INSPECTOR educated for safety and decreased support required usign FWW at this time and recommending outpatient PT to work on strength, balance using LRAD to progress back to PLOF with agreement would be helpful. Stair Climbing Assessment Evaluation Level of Assist On Stairs Contact Guard Assistance Devices Stair Climbing Assistive Devices Left Railing,Right Railing Technique/Endurance Stair Climbing Direction Ascend and Descend Stair Climbing Technique Step Over Step Number of Steps Climbed 3 Stair Climbing Set # Repetitions (reps) 1 Comments Stair Climbing Comments Pt was able to ascend/descend 3 stairs using BHR reported same at home with step over step patterning, CGA-SBA with providing support for safety and good demonstration stable. No cuing from STEEL INSPECTOR required. PT-Balance Assessment Sitting Balance and Reactions Static Sitting Balance Ability Normal Dynamic Sitting Balance Ability Good Standing Balance and Reactions Static Standing Balance Ability Good Dynamic Standing Balance Ability Fair Device Used SPC (good FWW) M5 PT-IP Objective Assessments Start: 04/15/19 15:44 Freq: NEEDED Status: Active Protocol: Document 04/15/19 17:00 AW (Rec: 04/15/19 17:20 AW [id number]) Orientation Orientation/Cognition Level of Alertness Alert Orientation Name,Day of Week,Place, Situation Language Function Ability No Deficits Noted Safety Awareness Understands Safety Issues Memory Description No Deficits Noted Comments Pt has good insight into his limitations. He is not opposed to using an assisitive device if needed. Gross Range of Motion Lower Extremity ROM Assessment Within Functional Limits Strength Lower Extremity Strength Assessment Within Functional Limits Comments Strength Comments BLE grossly 4+/5 Coordination Assessment Gross Coordination Gross Coordination WNL Sensation Assessment Sensation Gross Sensation WNL M6 PT-IP Treatment Start: 04/15/19 15:44 Freq: NEEDED Status: Active Protocol: Document 04/17/19 07:40 SP (Rec: 04/17/19 08:55 SP [id number]) Physical Therapy Treatment Education Education Provided Precautions,Safety Other Treatments Other Treatment Performed Educated patient for safety use of FWW at this time for increased balance support and independence with patient agreement. M7 PT-IP Assessment and Plan Start: 04/15/19 15:44 Freq: NEEDED Status: Active Protocol: Document 04/17/19 07:40 SP (Rec: 04/17/19 08:55 SP [id number]) PT Summary Assessment and Plan Potential Rehabilitation Potential Excellent Status of Condition at Evaluation Evolving Summary Impairments Strength,Balance,Transfers, Gait,Activity Tolerance Assessment Summary See mobility comments. Pt required Mod I for bed mobility, transfers using FWW/ SPC SBA, gait using FWW SBA/ SPC CGA for safety. Pt demonstrates wt shift deviations durign gait with SPC with self corrections but discussed with patient, spouse decreased assistance needed using FWW so suggested using at this time with agreement. Pt is able to discharge with for support at home when medically ready for discharge. Recommending outpatient PT for increased strength, endurance for functional independence with LRAD. Goals Bed Mobility Goal Independent Transfer Goal Independent,Cane,Front Wheeled Walker Gait Goal Independent,Cane,Front Wheel Walker Gait Distance 300 Other Goals - up/down 2 stairs with left rail ascending SBA - transfer and ambulation goals to be achieved with LRAD Days to Meet Goals 3 Frequency of Treatment Frequency Of Treatment Once a Day Treatment Plan Physical Therapy Treatment Plan Bed Mobility Training,Transfer Training,Gait Training, Therapeutic Exercise,Balance Retraining,Discharge Planning, Hot or Cold Pack,Neuromuscular Re-ed Other Recommendations and Next Treatment Increased energy level for SPC Focus ; balance, gait using SPC to increase safety. Recommendations To Nursing Amount of Assist Needed Standby Assistance Discharge Recommendations PT Discharge Recommendations Home with Assistance, Outpatient PT Transportation Needs at Discharge Private Vehicle
--- NOTE | 2019-04-17 08:32 | P.DS_ITS ---
History of Present Illness History of Present Illness Date Patient Seen: 04/17/19 Chief complaint: SOB, weakness, shaking, nausea Narrative: Mr. Juan F Mccallum is a 68-year-old male patient with a complex medical history most significant for coronary artery disease, cardiomyopathy, TIA, GERD with Elder's esophagus, hypertension, hyperlipidemia, hypothyroid, prostatitis with BPH status post transurethral resection of the prostate 10 days ago presents to the ER with fevers chills and malaise. The patient reports undergoing TURP 1 and half weeks ago and since the procedure poorly with lethargy and malaise. Over the last 3 days his symptoms have progressed and had been associated fevers and chills and tachypnea today. Patient has had recurrent episodes urinary tract infections that hip treated unsuccessfully with Levaquin (02/25/2019), Bactrim capital DS (03/08/2019) and Cipro (04/03/2019). Previous urine cultures prove no growth. Patient subsequently underwent transurethral resection of his prostate. The patient has been complaining of fevers and chills, he denies headaches or dizziness, he has no nasal congestion or sore throat. He complains of generalized weakness lethargy and sleeping a lot. He reports shaking chills today. He denies chest pain or palpitations and feels subjectively short of breath but denies cough or wheezing. He has had frequent nausea but no vomiting. He has been straight cathing since surgery. He reports chronic constipation and uses MiraLax at home. Upon arrival to the ER the patient has temperature of 99?, heart rate 95, blood pressure 126/58. He was respiratory rate 14 and saturating 99% on room air. A chest x-ray obtained which finds no acute cardiopulmonary findings. His last EKG was 10/2018 which shows sinus rhythm. On laboratory analysis he has an elevated white count of 12.2, hemoglobin of 11.9 and hematocrit of 35.5 with platelets 198. He has mild hyponatremia at 131, hypokalemia at 3.2. His BUN is 17 and creatinine is 1.1 for an EGFR greater than 60. He has a nonfasting glucose of 132. He has a total bilirubin of 1.7 with an AST of 58, ALT of 40 and alkaline phosphatase of 46. His albumin is 3.8. He has a procalcitonin of 0.94 lactic acid of 1.1. On urinalysis is urine is orange having had Pyridium and is cloudy. Is positive for RBCs, WBCs and many bacteria and reflex to culture. In the ER the patient was given Tylenol for fever and started on Levaquin 750 mg. He has also received potassium 40 mEq by mouth. The patient is admitted to the medicine service for urinary tract infection post TURP. Discharge Providers Provider Date of admission: 04/13/19 17:09 Discharge Date: 04/17/19 Primary care physician: Magno Galicia MD Consults: 04/13/19 20:13 Consult to Discharge Planning Routine Comment: 04/15/19 10:39 Consult to Physical Therapy Evaluate & Treat Comment: Physician Instructions: Evaluate and Treat Discharge provider: Vale Salazar MD Summary Hospital Course Discharge Diagnosis: 1. Urinary tract infection due to ESBL, secondary to urinary retention 2. Status post TURP 3. Coronary artery disease 4. Hypertension 5. Hypothyroid 6. GERD 7. Hyperlipidemia 8. Cardiomyopathy most likely ischemic 9. History of prostatitis Hospital Course: Patient was admitted to the hospital for for urinary tract infection following TURP. The patient was febrile to 102. Urine cultures ultimately grew ESBL. Patient was switched from ceftriaxone to ertapenem. On the ertapenem the patient defervesced quite nicely. His appetite improved. Previous complains of shortness of breath resolved. The patient's cultures demonstrated ESBL. It was sensitive to ertapenem in addition to TMP sulfa and Macrodantin. The patient had a Cruz catheter while hospitalized. This will be discontinued today. The patient will be switched from IV ertapenem to oral Bactrim to complete a 10 day course of antibiotics. He is scheduled to follow- up with his urologist next week for follow-up appointment. At this time the patient is in his usual state of health and deemed appropriate for discharge Exam Vital Signs (past 8 hours): - 04/17/19 05:00 Temperature 98.3 F Pulse Rate 61 Respiratory Rate 16 Blood Pressure 131/78 Pulse Oximetry 96 Oxygen Delivery Method Room Air Oxygen Flow Rate 0 Narrative Exam Narrative: Pleasant male in no acute distress sitting in a chair eating breakfast Lungs: Clear to auscultation Cardiac exam: Regular rate and rhythm normal S1-S2 Abdomen: Soft nontender nondistended Extremities: No edema Objective Labs Result Diagrams: 04/16/19 06:01 04/16/19 06:01 Discharge Plan Discharge Plan Patient Disposition: Home Discharge orders & Medications Prescriptions: New sulfamethoxazole-trimethoprim [Bactrim DS] 800-160 mg tablet 1 tab PO BID Qty: 20 RF: 0 Continued losartan 50 mg Tablet 50 mg PO DAILY RF: 0 cyclobenzaprine 10 mg Tablet 10 mg PO TID PRN (Reason: Muscle Spasm) RF: 0 lamotrigine [Lamictal] 200 mg Tablet 200 mg PO DAILY RF: 0 trazodone 50 mg Tablet 50 mg PO DAILY RF: 0 cetirizine [Zyrtec] 10 mg Tablet 10 mg PO DAILY RF: 0 clopidogrel 75 mg Tablet 75 mg PO DAILY RF: 0 levothyroxine 100 mcg Tablet 100 mcg PO DAILY RF: 0 ropinirole 2 mg Tablet 2 mg PO DAILY RF: 0 pantoprazole 40 mg Tablet,Delayed Release (Dr/Ec) 40 mg PO DAILY RF: 0 fluoxetine [Prozac] 10 mg Capsule 30 mg PO DAILY RF: 0 gabapentin 300 mg Capsule 300 - 600 mg PO QID PRN (Reason: Pain) RF: 0 furosemide 20 mg Tablet 40 mg PO DAILY RF: 0 fluticasone propionate [Flonase Allergy Relief] 50 mcg/actuation [place],Suspension 2 spray INTRANASAL DAILY PRN (Reason: sinus allergy) RF: 0 rosuvastatin [Crestor] 40 mg Tablet 40 mg PO DAILY RF: 0 potassium chloride 20 mEq Tablet Extended Release 20 meq PO DAILY RF: 0 ProAir RespiClick 90 mcg/actuation Aerosol Powdr Breath Activated 2 inh INHALATION Q4-6H PRN (Reason: Shortness Of Breath) RF: 0 oxycodone 5 mg capsule 5 mg PO Q4H PRN (Reason: pain) Qty: 30 RF: 0 Follow up/Referrals: Magno Galicia MD [Primary Care Provider] - Diet/Activity/Treatments Diet: Low-sodium and Low-cholesterol Activity: as tolerated Catheter comment: self cath as needed Skin/Wound/Dressing Care Report to your healthcare provider any signs of infection, such as:: chills, fever Discharge Data Primary Care Provider: Magno Galicia
[2019-04-17] MEDS: GABAPENTIN 300 MG CAPSULE 900 MG PO (08:43)
[2019-04-17] MEDS: CLOPIDOGREL 75 MG TABLET PO (08:43)
[2019-04-17] MEDS: FLUoxetine 10 MG CAPSULE 30 MG PO (08:43)
[2019-04-17] MEDS: ROSUVASTATIN 10 MG TABLET 40 MG PO (08:43)
[2019-04-17] MEDS: PANTOPRAZOLE 40 MG TABLET PO (08:44)
[2019-04-17] MEDS: ENOXAPARIN 40 MG/0.4 ML SYRINGE SUBCUT (08:44)
[2019-04-17] MEDS: ROPINIROLE 1 MG TABLET 2 MG PO (08:44)
[2019-04-17 09:00] VITALS: BP 131/77; PULSE 72; RESP 20; TEMP 36.7; O2SAT 94
--- NOTE | 2019-04-17 11:31 | PC.NURSE ---
Day Shift- Discharge home order rec'd. Pt's Colleen in rooming with pt. Pt states having appointment already made next week with his Urologist. Urinary catheter removed at 1015 without difficulty prior to discharge per Dr. Salazar's order, pt agrees with this plan. Pt states having a new batch of self cath supplies at home. Denied pain or discomfort. Discharge summary packet reviewed with pt and his Colleen. Pt had no further voiced concerns. States having all his belongings. Pt left unit at 1043 via wheelchair in no distress with [employer]AIL PH[employer] escort. Colleen is present to drive pt home.
== END 2019-04-17 10:43 | disposition home or self-care (01) | DRG 690 ==
LOC: ED 17:07 → AC 17:10
PROVIDERS: Nurse Practitioner Adult Health; Admitting Provider Internal Medicine; Emergency Provider Emergency Medicine; PCP Family Medicine; Referring Provider Emergency Medicine; Visit Provider Internal Medicine
DX: N39.0 Urinary tract infection, site not specified (principal); Z16.11 Resistance to penicillins; Z16.29 Resistance to other single specified antibiotic; Z16.19 Resistance to other specified beta lactam antibiotics; Z16.23 Resistance to quinolones and fluoroquinolones; E87.1 Hypo-osmolality and hyponatremia; E87.6 Hypokalemia; B96.29 Other Escherichia coli [E. coli] as the cause of diseases classified elsewhere; R33.9 Retention of urine, unspecified; I25.5 Ischemic cardiomyopathy; I25.10 Atherosclerotic heart disease of native coronary artery without angina pectoris; K22.70 Barrett's esophagus without dysplasia; Z86.73 Personal history of transient ischemic attack (TIA), and cerebral infarction without residual deficits; I10 Essential (primary) hypertension; E78.5 Hyperlipidemia, unspecified; E03.9 Hypothyroidism, unspecified; Z98.890 Other specified postprocedural states; Z79.02 Long term (current) use of antithrombotics/antiplatelets; M54.16 Radiculopathy, lumbar region; G62.9 Polyneuropathy, unspecified
CPT/HCPCS: 36415; 71045; 80048; 80053; 81001; 83605; 83735; 83880; 84145; 85025; 87040; 87077; 87086; 87186; 87633; 93306; 94660; 94762; 96361; 96365; 97116; 97162; 97530; 99284; 99285; J0696; J1335; J1650; J1956; J2405

== ENCOUNTER → 2019-09-22 08:28 | Outpatient (CLI) | payer MEDICARE, OTHER, SELFPAY ==
[2019-04-13 19:19] VITALS: BMI 37.3
[2019-09-23 17:41] LABS: COVID19 Sendout Not Detected (Not Detect)
== END ==
PROVIDERS: PCP Family Medicine; Visit Provider Physician Assistant
DX: Z11.59 Encounter for screening for other viral diseases (principal)
CPT/HCPCS: 87635

== ENCOUNTER 2019-09-25 12:04 | Day surgery (SDC) | payer MEDICARE, OTHER, SELFPAY ==
[2019-04-13 19:19] VITALS: BMI 37.3
--- NOTE | 2019-09-25 | PATH_ITS ---
[facility] Accession Number: [id number] . 01 Material submitted: . PART A: stomach - FUNDUS POLYP PART B: body - BIOPSY AT 40CM PART C: body - BIOPSY AT 39CM . 01 Clinical history: . B: BIOPSY AT 40CM, RULE OUT GRIFFITHS'S C: BIOPSY AT 39CM, RULE OUT GRIFFITHS'S . 02 Diagnosis: A. Fundus Polyp: Fundic gland polyp with xanthomatous changes. No evidence of Helicobacter organisms on H/E stain. Negative for intestinal metaplasia. Negative for dysplasia and malignancy. . B. Biopsy at 40 cm: Squamocolumnar junctional mucosa with specialized intestinal metaplasia, consistent with Griffiths's esophagus. Negative for dysplasia and malignancy. . C. Biopsy at 39 cm: Squamocolumnar junctional mucosa with specialized intestinal metaplasia, consistent with Griffiths's esophagus. Negative for dysplasia and malignancy. [facility] 09/27/2019 1610 Local . 02 Electronically signed: . Joana Baires MD, Pathologist NPI- [id number] . 01 Gross description: . Part A: FUNDUS POLYP: Received in formalin is 1 fragment(s) of barry, soft tissue measuring 0.2 x 0.2 x 0.2 cm submitted entirely in 1 cassette(s) Part B: BIOPSY AT 40CM: Received in formalin are 4 fragment(s) of barry, soft tissue measuring 0.1 x 0.1 x 0.1 cm to 0.3 x 0.2 x 0.2 cm submitted entirely in 1 cassette(s) Part C: BIOPSY AT 39CM: Received in formalin are 3 fragment(s) of barry, soft tissue measuring 0.1 x 0.1 x 0.1 cm in aggregate submitted entirely in 1 cassette(s) /BORIS 09/26/2019 0207 Local . 02 Pathologist provided ICD-10: K31.7 . 02 CPT . 493617, [id number], [id number] Performed at: 01 [facility] [address] [id number] MD Mervin Mariscal MD Phone: [phone] Performed at: 02 [facility] [address] [place], [place] [id number] MD Marina Hamilton MD Phone: [phone]
[2019-09-25 12:42] VITALS: BP 125/86; PULSE 72; RESP 17; TEMP 36.7; O2SAT 98; BMI 37.8
--- NOTE | 2019-09-25 13:51 | PM.HP.1 ---
History of Present Illness History of Present Illness Chief complaint: [facility] [place] Patient History Medical History Anxiety (Acute) Arthritis (Acute) Back pain (Acute) Elder's esophagus (Acute) CAD (coronary artery disease) (Acute) Cardiomyopathy (Acute) Chest pain (Acute) Chronic back pain (Acute) Depression (Acute) Dysphagia (Acute) GERD (gastroesophageal reflux disease) (Acute) History of sepsis (Acute) History of syncope (Acute) HLD (hyperlipidemia) (Acute) HTN (hypertension) (Acute) Hypothyroid (Acute) Kidney stones (Acute) Neck pain (Acute) Osteoarthritis (Acute) Polyneuropathy (Acute) Prostatitis (Acute) PVC's (premature ventricular contractions) (Acute) RLS (restless legs syndrome) (Acute) Sleep apnea (Acute) TIA (transient ischemic attack) (Acute 10/24/17) Viral meningitis (Acute) Surgical History H/O: vasectomy (Acute) History of penile implant (Acute) History of repair of hiatal hernia (Acute ~01/2017) Hx of cardiac cath (Acute) Hx of cystoscopy (Acute 08/02/17) Hx of cystoscopy (Acute 06/05/18) Hx of right inguinal hernia repair (Acute 10/16/13) S/P CABG x 4 (Acute ~2000) S/P epidural steroid injection (Acute) Family & Social History Social History: household members spouse Tobacco & Substance use: Smoking Status Never smoker alcohol intake former Substance Use Type does not use Meds Home Medications and Allergies Home Medications Medication Instructions Recorded Confirmed Type ProAir RespiClick 2 inh INHALATION Q4-6H PRN 01/25/19 09/25/19 History cetirizine [Zyrtec] 10 mg PO DAILY 01/25/19 09/25/19 History clopidogrel 75 mg PO DAILY 01/25/19 09/25/19 History cyclobenzaprine 10 mg PO TID PRN 01/25/19 09/25/19 History fluoxetine [Prozac] 30 mg PO DAILY 01/25/19 09/25/19 History fluticasone propionate [Flonase 2 spray INTRANASAL DAILY PRN 01/25/19 09/25/19 History Allergy Relief] furosemide 40 mg PO DAILY 01/25/19 09/25/19 History gabapentin 300 - 600 mg PO QID PRN 01/25/19 09/25/19 History lamotrigine [Lamictal] 200 mg PO DAILY 01/25/19 09/25/19 History levothyroxine 100 mcg PO DAILY 01/25/19 09/25/19 History losartan 50 mg PO DAILY 01/25/19 09/25/19 History pantoprazole 40 mg PO DAILY 01/25/19 09/25/19 History potassium chloride 20 meq PO DAILY 01/25/19 09/25/19 History ropinirole 2 mg PO DAILY 01/25/19 09/25/19 History rosuvastatin [Crestor] 40 mg PO DAILY 01/25/19 09/25/19 History trazodone 50 mg PO DAILY 01/25/19 09/25/19 History oxycodone 5 mg PO Q4H PRN #30 cap 02/05/19 09/25/19 Rx sulfamethoxazole-trimethoprim 1 tab PO BID #20 tab 04/17/19 09/25/19 Rx [Bactrim DS] Allergies Allergy/AdvReac Type Severity Reaction Status Date / Time No Known Drug Allergies Allergy Verified 09/25/19 12:27 Review of Systems Review of Systems ROS: Yes All systems reviewed with the patient and are negative except as otherwise documented Exam Vital Signs (past 8 hours): - 09/25/19 12:42 Temperature 98.1 F Pulse Rate 72 Respiratory Rate 17 Blood Pressure 125/86 Pulse Oximetry 98 Oxygen Delivery Method Room Air Narrative Exam Narrative: Awake alert and oriented x3, no acute distress, normal breath sounds, heart regular rate Assessment & Plan Assessment & Plan narrative: History of Elder's esophagus for EGD today COVID-19 COVID-19 status: Negative
--- NOTE | 2019-09-25 14:07 | PM.OP.ENDO ---
Operative Date/Time/Diagnoses Date of procedure: 09/25/19 Procedure & Clinicians Study performed: EGD with biopsy Moderate conscious sedation was administered by the endoscopy nurse and supervised by the endoscopist. The following parameters were monitored: Oxygen saturation, heart rate, blood pressure, and response to care. 2mg midazolam and 100mcg fentanyl. Same procedure as scheduled: Yes Indications: History of Elder's esophagus, for surveillance. Procedure Notes Procedure in detail: Prior to the procedure, history and physical was performed, and patient medications and allergies were reviewed. Preprocedure nursing history and assessment was reviewed. Patient identification and proposed procedure were verified by the physician and nurse in the procedure room. The physical status of the patient was reassessed after the procedure. After informed consent was obtained including risks, benefits, and alternatives, the scope was passed under direct vision. Throughout the procedure, the patient's blood pressure, pulse, and oxygen saturations were monitored continuously. The upper endoscope was introduced through the mouth and advanced to the 2nd portion of the duodenum. Retroflexion was performed in the stomach. The patient tolerated the procedure well. At 39 cm in the distal esophagus, there were two 4 mm islands of salmon-colored mucosa. Two 1 cm long tongues of salmon-colored mucosa extended above the squamocolumnar junction from 41 cm to 40 cm. This is consistent with a history of Elder's esophagus. Falconer class C0M2. Targeted Biopsies were taken in 1 cm intervals and placed into separate jars. At the fundus, a 2 mm polyp was biopsied. The remainder of the stomach was normal appearing. 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 Biopsies taken 2 mm polyp in the fundus of the stomach, biopsied Normal appearing duodenum Sedation minutes: 14 Complications: other (EBL minimal. No complications) Post-procedure Plan for aftercare: Follow-up pathology results Repeat EGD at a date to be determined based on pathology results Resume Plavix tomorrow Resume home medications Resume previous diet Patient has a contact number available for emergencies. The signs and symptoms of potential delayed complications were discussed with the patient. Return to normal activities tomorrow. Written discharge instructions were provided to the patient. Discharge home with escort
[2019-09-25] MEDS: fentaNYL 250 MCG/5 ML INJ IV (14:11)
[2019-09-25] MEDS: MIDAZOLAM 5 MG/5 ML VIAL IV (14:11)
[2019-09-25 14:13] VITALS: BP 134/83; PULSE 61; RESP 15; TEMP 36.3; O2SAT 93
[2019-09-25 14:18] VITALS: BP 135/89; PULSE 60; RESP 14; O2SAT 93
[2019-09-25 14:23] VITALS: BP 129/85; PULSE 57; RESP 15; O2SAT 95
[2019-09-25 14:29] VITALS: BP 117/80; PULSE 67; RESP 15; TEMP 36.4; O2SAT 95
[2019-09-25 14:58] VITALS: BP 110/78; PULSE 60; RESP 16; TEMP 36.4; O2SAT 95
== END 2019-09-25 14:59 | disposition home or self-care (01) ==
PROVIDERS: PCP Family Medicine; Referring Provider Internal Medicine; Visit Provider Internal Medicine
PROC: 0DJ08ZZ Inspection of Upper Intestinal Tract, Via Natural or Artificial Opening Endoscopic (ICD-10-PCS; CPT 43235; principal; 2019-09-25 13:00)
DX: Z87.19 Personal history of other diseases of the digestive system (principal); K22.70 Barrett's esophagus without dysplasia; K31.7 Polyp of stomach and duodenum
CPT/HCPCS: 43239; J2250; J3010

== ENCOUNTER → 2019-11-20 13:51 | Outpatient (CLI) | payer MEDICARE, OTHER, SELFPAY ==
[2019-04-13 19:19] VITALS: BMI 37.3
[2019-11-20 14:08] LABS: Bacteria Urine None Seen; WBC Urine None Seen (0-5/HPF)
[2019-11-20 14:53] LABS: Add Manual Diff / Slide Review NO; Basophils Absolute Auto 0 /uL (0-100); Basophils Percent Auto 0.5 % (0-2); Eosinophils Absolute Auto 200 /uL (0-450); Eosinophils Percent Auto 3.3 % (2-4); Hematocrit 42.9 % (41-53); Hemoglobin 14.5 g/dL (13.5-17.5); Lymphocytes Absolute Auto 1500 /uL (1100-4500); Lymphocytes Percent Auto 31.4 % (25-40); Mean Corpuscular HGB Conc 33.8 % (30-36); Mean Corpuscular Hemoglobin 31.1 PG (26-34); Mean Corpuscular Volume 92.1 fL (80-100); Monocytes Absolute Auto 300 /uL (0-900); Monocytes Percent Auto 7.3 % (3-14); Neutrophils Absolute Auto 2700 /uL (1500-7000); Neutrophils Percent Auto 57.5 % (50-75); Platelet Count 132 X10^3/uL (150-400); Red Blood Cell Count 4.66 X10^6/uL (4.5-5.9); Red Cell Distribution Width 13.6 % (11.6-14.8); White Blood Cell Count 4.7 X10^3/uL (4.5-11.0)
[2019-11-20 15:01] LABS: Appearance Urine UA CLEAR; Bilirubin Urine UA NEGATIVE (NEGATIVE); Color Urine UA YELLOW; Glucose Urine UA NEGATIVE (Negative); Ketones Urine UA NEGATIVE (NEGATIVE); Leukocyte Esterase Urine UA NEGATIVE (NEGATIVE); Nitrite Urine UA NEGATIVE (Negative); Occult Blood Urine UA 2+ (Negative); Protein Urine UA NEGATIVE (Negative); Specific Gravity Urine UA 1.015 (1.000-1.035); Urobilinogen Urine UA 0.2 E.U./dL (0.2)
[2019-11-20 15:02] LABS: Hemoglobin A1C% w Est Avg Glu 5.7 % (4.0-6.0)
[2019-11-20 15:10] LABS: Culture Indicated Urine Cult Not Indicated; RBC Urine 5-10/HPF (0-5/HPF)
[2019-11-20 17:01] LABS: BUN Creatinine Ratio 15.3 (6-22); Blood Urea Nitrogen 13 mg/dL (9-20); Calcium 10.1 mg/dL (8.4-10.2); Carbon Dioxide 33 mmol/L (22-32); Chloride 100 mmol/L (98-107); Estimated Glomerular Filt Rate > 60.0 mL/min (>60); Glucose 105 mg/dL (80-110); HEMOLYSIS < 15 (0-50); Potassium 4.2 mmol/L (3.4-5.1); Sodium 139 mmol/L (137-145)
== END ==
PROVIDERS: PCP Family Medicine; Referring Provider Orthopaedic Surgery; Visit Provider Orthopaedic Surgery
DX: Z01.818 Encounter for other preprocedural examination (principal); Z01.812 Encounter for preprocedural laboratory examination; R73.9 Hyperglycemia, unspecified; N39.0 Urinary tract infection, site not specified
CPT/HCPCS: 36415; 80048; 81001; 83036; 85025; 93005

== ENCOUNTER → 2019-12-14 13:17 | Outpatient (CLI) | payer MEDICARE, OTHER, SELFPAY ==
[2019-04-13 19:19] VITALS: BMI 37.3
[2019-12-16 07:58] LABS: COVID19 Sendout Not Detected (Not Detect)
== END ==
PROVIDERS: PCP Family Medicine; Visit Provider Physician Assistant
DX: Z11.59 Encounter for screening for other viral diseases (principal)
CPT/HCPCS: 87635

== ENCOUNTER 2019-12-17 11:45 | Day surgery (SDC) | payer MEDICARE, OTHER, SELFPAY ==
[2019-04-13 19:19] VITALS: BMI 37.3
[2019-12-16 07:51] VITALS: BMI 40.1
[2019-12-17 12:21] VITALS: BP 133/82; PULSE 67; RESP 16; TEMP 37.2; O2SAT 96; BMI 40.0
[2019-12-17] MEDS: LACTATED RINGERS 1,000 ML 42 ML IV (12:30)
[2019-12-17] MEDS: PREGABALIN 75 MG CAPSULE PO (12:42)
[2019-12-17] MEDS: ACETAMINOPHEN 325 MG TABLET 975 MG PO (12:43)
[2019-12-17] MEDS: VANCOMYCIN 1,000 MG/200 ML PIGGYBACK 200 MG IV (14:10)
--- NOTE | 2019-12-17 14:22 | SUR.PREOP ---
Dr Aaron at bedside. Left 3rd finger suture removed by Dr Aaron.
--- NOTE | 2019-12-17 14:38 | PM.PREOP ---
Pre-operative Note COVID-19 COVID-19 status: Negative Interval Note History & Physical reviewed/Exam performed by Physician: Yes Changes to H&P: No
--- NOTE | 2019-12-17 14:40 | PM.OP.1 ---
Operative Date/Time/Diagnoses Date of procedure: 12/17/19 Time of procedure: 14:58 Pre-op diagnosis: right knee OA Post-op diagnosis: same Procedure & Clinicians Procedure: Right knee medial compartment arthroplasty Same procedure as scheduled: Yes Indications: The patient has had progressively worsening right knee pain with radiographic changes consistent with arthritis. Non-operative management has failed and the patient has requested medial unicompartment knee replacement. The risks, benefits and alternatives to surgery were discussed with the patient prior to proceeding. Risks discussed included, but were not limited to, failure to relieve pain, stiffness, infection, nerve damage, deep venous thrombosis, pulmonary embolism, stroke, coma, heart attack, permanent paralysis and , as well as the potential need for eventual revision of the prosthetic. Surgeon: Sheila Aaron Direct Selling Counselor: Jennifer Cooper Anesthesia Type: General and Spinal Operative Notes Findings: Severe right knee medial compartment OA, mild patellofemoral OA Closure Type: primary Specimen(s): none sent Prosthetic devices, grafts, tissues, transplants, or devices: Size 4 right medial tibia, size E right medial femoral condyle, +9 poly Estimated Blood Loss (mL): 250 Blood products transfused: none Tourniquet time (min): 67 Procedure in detail: The patient was seen in the pre-operative area, where the right knee was identified as the operative site and this was marked with my initials. The patient received pre-operative antibiotics, and was taken to the operating room and placed on the operative table in the supine position. After satisfactory anesthesia, a time cycle operator out was performed. The right leg was encircled with a tourniquet about the proximal thigh, and the leg was prepared from the toes to the tourniquet with ChloroPrep in the usual fashion and draped through sterile drapes. The leg was elevated and exsanguinated with Eschmark bandage and the tourniquet inflated to [250] mmHg pressure. The knee was approached through an approximately 10 cm incision medial parapatella incision and carried into the knee through a medial parapatellar arthrotomy. The osteophytes and medial meniscus were removed. Next, a small amount of the anterior tibial boss was carefully resected with a saw. The guide was placed along the medial joint line. It was meticulously adjusted to make sure there was appropriate slope that it was at the joint line and then was pinned to the tibia and the femur. The medial femoral condylar cut was made in extension. The tibial cut was made in flexion. The bone was meticulously irrigated with normal saline. Small amount of additional meniscus was resected posterior capsule was checked and injected with Marcaine. The extension gap was carefully checked with an 8 mm gap hospital aides and assistants teacher was noted that it fit well. A small number of additional osteophytes were resected. The tibia was a size 4. It was noted that it fit without overhang. The femur was sized and it was noted to be a E. The appropriate cutting guide was pinned into place and carefully positioned on the femoral condyle. Drill holes were placed. The tibia was pinned into place and drill holes were made. Trial reduction with the appropriate poly showed full range of motion and good stability at 0, 45. and 90? with normal tracking of the components without edge loading. The bone was meticulously irrigated and dried. Additional Marcaine was injected. The posterior capsule was injected with 0.25% Marcaine mixed with 20 ml Exparel for post-operative pain control. The remainder of this mixture was injected into the capsule and subcutaneous tissues during cement curing. Range of motion was [0-130], with good stability throughout the range. The trials were then remove. The cement was as applied and the final prosthetics placed. Excess cement was removed during and after cement curing. A brief medial compartment Betadine soak was performed. After confirming there was no extruded cement posteriorly, the final tibial insert was placed. The knee was copiously irrigated and the tourniquet deflated. Hemostasis was obtained. The capsule was closed with interrupted vicryl. The subcutaneous tissue was closed with barbed sutures. The skin with a running 3-0 V-Lock suture and surgical glue. An Aquacel Ag dressing was applied and the patient was taken to recovery having tolerated the procedure well. Complications: none Post-operative Condition: stable Disposition: same day surgery Plan for aftercare: The patient will be maintained on a standard medial Uni knee replacement protocol with weight bearing as tolerated. The patient will receive aspirin and sequential compression devices for DVT prophylaxis. The patient will be discharged home when safe for the home environment.
--- NOTE | 2019-12-17 14:44 | SUR.PREOP ---
Block start time [] . Monitoring initiated and maintained throughout procedure. Oxygen and medications given per anesthesiologist instructions. Patient remained stable throughout procedure, no adverse reactions noted. Block end time []. 1445 - Dr Sampson in room preparing for nerve block. Pt placed on 2LNC and continuous monitoring per anesthesia instruction. 1446 - Time out completed. 1446 - 2mg Versed IVP given by Dr Sampson. 1450 - VS 159/98 61 17 95%. 1458 - Injection. 1459 - Block end time. 1500 - VS 160/95 61 12 96%. Pt remained stable throughout procedure. No adverse reactions noted. 1508 - Pt taken to OR by ARELIS Rivera.
[2019-12-17] MEDS: CEFAZOLIN 2 GM/100 ML FROZ.PIGGY IV (15:08)
--- NOTE | 2019-12-17 15:34 | PM.PROC.1 ---
Procedures Date/Time Date of procedure: 12/17/19 Time of procedure: 15:00 Nerve Block Time out performed: Yes Local anesthetic used: lidocaine 2% (5mL with 15mL 0.5% ropivacaine) Location of anesthetic used: adductor canal Amount of anesthesia used (mL): 20 Nerve blocks: femoral (adductor canal) Procedure successful: Yes Patient tolerated procedure: well Complications: none Additional comments: Adductor canal block for post operative pain management. R/B discussed. Site marked. Consent verified/signed. Standard ASA monitors. NC O2. Chloroprep. Sterile technique. Femoral A/V/N identified medial mid thigh with US. Lidocaine skin wheal. 100mm x 21g Pajunk needle advanced with in-plane US guidance. Negative aspiration. LA injected medial and lateral to femoral artery. Negative aspiration throughout. No pain, no paresthesia with injection. VSS. Tolerated well. To OR.
--- NOTE | 2019-12-17 15:36 | SUR.OPER ---
Addendum entered by Miguel Lacey R.N. 12/17/19 15:39: bruise on right inner thigh Original Note: Pt presents with multiple scabs on lower legs and an aproximately 8cm diameter bruise on his inner left thigh. Surgeon made aware
[2019-12-17] MEDS: BUPIVACAINE 0.25% W/ EPI (PF) 10 ML VIAL 20 ML INJ (16:01)
[2019-12-17] MEDS: BUPIVACAINE LIPOSOME 266 MG/20 ML VIAL INJ (16:02)
[2019-12-17] MEDS: SODIUM CHLORIDE IRRIG SOLUTION 250 ML, POVIDONE-IODINE SPONGE STICKS 1 APPLIC IRR (16:03)
[2019-12-17 17:09] VITALS: BP 134/73; PULSE 75; RESP 17; TEMP 36.9; O2SAT 93
[2019-12-17 17:14] VITALS: BP 140/68; PULSE 72; RESP 14; O2SAT 93
[2019-12-17 17:19] VITALS: BP 134/77; PULSE 75; RESP 18; TEMP 36.6; O2SAT 92
[2019-12-17 17:26] VITALS: BP 133/76; PULSE 71; RESP 20; TEMP 36.4; O2SAT 94
[2019-12-17 17:28] VITALS: BP 148/70; PULSE 70; RESP 12; TEMP 36.4; O2SAT 93
--- NOTE | 2019-12-17 18:11 | SUR.PHASEII ---
pt able to walk with 1 person asst. has FWW in car to get home, denies pain, tolerated ice and juice. D/c instructions provided to pt and his . Rx sent in d/c envelope with pt along with d/c instructions.
== END 2019-12-17 17:45 | disposition home or self-care (01) ==
PROVIDERS: PCP Physician Assistant Medical; Referring Provider Orthopaedic Surgery; Visit Provider Orthopaedic Surgery
PROC: (CPT 27446; principal; 2019-12-17 13:45)
DX: M17.11 Unilateral primary osteoarthritis, right knee (principal); I25.10 Atherosclerotic heart disease of native coronary artery without angina pectoris; I10 Essential (primary) hypertension; G47.33 Obstructive sleep apnea (adult) (pediatric); Z79.01 Long term (current) use of anticoagulants; Z86.73 Personal history of transient ischemic attack (TIA), and cerebral infarction without residual deficits
CPT/HCPCS: 27446; C1776; C9290; J0690; J1100; J2250; J2405; J2704; J3010

== ENCOUNTER → 2021-05-10 11:23 | Outpatient (CLI) | payer MEDICARE, OTHER, SELFPAY ==
[2019-04-13 19:19] VITALS: BMI 37.3
[2021-05-10 13:28] LABS: COVID19 -Nasal RAPID Negative (Negative)
== END ==
PROVIDERS: PCP Physician Assistant Medical; Visit Provider Family Medicine Sleep Medicine
DX: Z20.822 Contact with and (suspected) exposure to COVID-19 (principal)
CPT/HCPCS: 87635

== ENCOUNTER → 2021-05-10 12:35 | Outpatient (CLI) | payer MEDICARE, OTHER, SELFPAY ==
[2019-04-13 19:19] VITALS: BMI 37.3
[2021-05-10 13:55] LABS: Add Manual Diff / Slide Review NO; Basophils Absolute Auto 0 /uL (0-100); Basophils Percent Auto 0.5 % (0-2); Eosinophils Absolute Auto 200 /uL (0-450); Eosinophils Percent Auto 3.9 % (2-4); Hematocrit 39.1 % (41-53); Hemoglobin 13.6 g/dL (13.5-17.5); Lymphocytes Absolute Auto 1200 /uL (1100-4500); Lymphocytes Percent Auto 24.8 % (25-40); Mean Corpuscular HGB Conc 34.7 % (30-36); Mean Corpuscular Hemoglobin 30.9 PG (26-34); Mean Corpuscular Volume 89.1 fL (80-100); Monocytes Absolute Auto 300 /uL (0-900); Monocytes Percent Auto 6.5 % (3-14); Neutrophils Absolute Auto 3200 /uL (1500-7000); Neutrophils Percent Auto 64.3 % (50-75); Platelet Count 132 X10^3/uL (150-400); Red Blood Cell Count 4.39 X10^6/uL (4.5-5.9); Red Cell Distribution Width 14.5 % (11.6-14.8); White Blood Cell Count 4.9 X10^3/uL (4.5-11.0)
[2021-05-10 14:15] LABS: BUN Creatinine Ratio 23.8 (6-22); Blood Urea Nitrogen 19 mg/dL (9-20); Calcium 9.2 mg/dL (8.4-10.2); Carbon Dioxide 24 mmol/L (22-32); Chloride 106 mmol/L (98-107); Estimated Glomerular Filt Rate > 60.0 mL/min (>60); Glucose 159 mg/dL (80-110); HEMOLYSIS < 15 (0-50); Potassium 4.2 mmol/L (3.4-5.1); Sodium 137 mmol/L (137-145)
== END ==
PROVIDERS: PCP Physician Assistant Medical; Referring Provider Specialist; Visit Provider Specialist
DX: I10 Essential (primary) hypertension (principal); R06.00 Dyspnea, unspecified; Z20.822 Contact with and (suspected) exposure to COVID-19
CPT/HCPCS: 36415; 80048; 83735; 85025; 87635; C9803

== ENCOUNTER → 2021-05-11 14:01 | Outpatient (CLI) | payer MEDICARE, OTHER, SELFPAY ==
[2019-04-13 19:19] VITALS: BMI 37.3
--- NOTE | 2021-05-11 | DI.NM.S_ITS ---
PROCEDURE: NM JENNIFER PERF SPECT REST & STR Rest and exercise myocardial perfusion SPECT with gated imaging and ejection fraction RADIOPHARMACEUTICAL: 24,1 mCi Tc-99m sestamibi IV at rest and 24.3 mCi Tc-99m sestamibi IV at peak exercise. A twoday-protocol was performed. INDICATIONS: DYSPNEA TECHNIQUE: Radiopharmaceutical was injected at peak stress test, and also at rest. SPECT images were obtained. SPECT myocardial perfusion images were displayed in short axis, horizontal long axis, and vertical long axis views. Gated images were reviewed using ZENT software. COMPARISON: None. CARDIAC STRESS: A standard Seth treadmill exercise tolerance test was performed by the patient under the supervision of an attending staff. The patient exercised for 4 minutes and 0 seconds; functional aerobic impairment (WALTER) is +36%. Hemodynamic data: There is normal blood pressure and heart rate response to exercise stress. Patient achieved 96% of maximum predicted heart rate at peak exercise. Symptoms: Patient denied chest pain during exercise. EKG: No diagnostic EKG changes of ischemia; no ectopy. FINDINGS: Raw data: There is good myocardial labeling by radiotracer. No significant motion artifacts. Vhjd-vq-jrmbj ratio is 0.22 (normal is less than 0.38 for sestamibi tracer, and less than 0.50 for thallium tracer). Left ventricle function: Gated images demonstrate normal left ventricle wall thickening. No segmental wall motion abnormality. No transient ischemic dilation; TID is 0.64 (normal less than 1.3). The left ventricle resting end-diastolic volume is 146 mL. Left ventricle stress ejection fraction is 60%; normal values are above 45%. Myocardial perfusion: There is normal distribution of activity in the left and right ventricular myocardium. No fixed or reversible perfusion defects. IMPRESSION: Low risk, normal treadmill nuclear stress test 1) No perfusion evidence of ischemia or infarction. 2) Normal left ventricular size, wall motion, and systolic function (EF post stress 60%). 3) No ECG evidence of ischemia. 4) No angina during the study. 5) Reduced exercise tolerance (WALTER +36%). Target heart rate achieved. Appropriate BP response to exercise. 6) Compared to the nuc stress done 04/13/2015, no significant change. Dictated by: Victor M Watson MD on 05/12/2021 at 15:16 Approved by: Victor M Watson MD on 05/12/2021 at 15:19
== END ==
PROVIDERS: PCP Physician Assistant Medical; Referring Provider Specialist; Visit Provider Specialist
DX: R06.00 Dyspnea, unspecified (principal)
CPT/HCPCS: 78452; 93017; A9502

== ENCOUNTER → 2021-05-12 09:11 | Outpatient (CLI) | payer MEDICARE, OTHER, SELFPAY ==
[2019-04-13 19:19] VITALS: BMI 37.3
--- NOTE | 2021-05-12 | DI.MRI.S_ITS ---
PROCEDURE: MR LUMBAR SPINE WO CON INDICATIONS: Low back pain, unspecified TECHNIQUE: Noncontrast sagittal T1 spin echo and T2 fast echo, sagittal STIR, and T2 fast spin echo through the lumbar spine. In cases with scoliosis, additional coronal T2 fast spin echo may be performed. COMPARISON: [facility], MR, MR LUMBAR SPINE WITHOUT CONTRAST, 04/02/2019, 16:22. [facility], MR, L-SPINE WITHOUT CONTRAST, 11/09/2015, 16:13. FINDINGS: Image quality: Excellent. Alignment and Curvature: Mild rightward scoliotic curvature. There is trace retrolisthesis of L4 on L5. Bone Marrow: Marrow is of normal overall signal. No acute vertebral body compression fractures. Spinal Cord: Conus medullaris terminates at the L1-L2 level. Visualized cord demonstrates normal signal and size. Paraspinous Soft Tissues: No paravertebral masses. Discs: Moderate desiccation is present throughout the lumbar spine. L1-L2: Mild disc bulge with moderate left foraminal narrowing. No spinal stenosis. Facet and ligamentum flavum hypertrophy are present. No interval change. L2-L3: Mild disc bulge with moderate spinal stenosis. Epidural lipomatosis is present. There is hxnb-ao-kbixqmcy left foraminal narrowing with facet and ligamentum flavum hypertrophy. No appreciable interval change. L3-L4: Mild disc bulge with superimposed posterior central protrusion. Moderate to severe spinal stenosis, mildly progressive. Moderate left and severe severe right foraminal narrowing with facet and ligamentum flavum hypertrophy, mildly progressive. L4-L5: Mild disc bulge with vdqh-pe-fzvlsgjh spinal stenosis, minimally progressive. There is moderate to severe bilateral foraminal narrowing with facet and ligamentum flavum hypertrophy. No interval change. L5-S1: Mild disc bulge with mild spinal stenosis. Moderate left and severe right foraminal narrowing with facet and ligamentum flavum hypertrophy. No interval change. IMPRESSION: Multilevel degenerative changes with mild areas of interval progression as above. Multilevel spinal stenosis secondary to disc bulge with contributing affective facet/ligamentum flavum arthropathy most severe at L3-4. Multilevel foraminal narrowing most severe at L3-4 and L4-5 secondary to facet arthropathy. Dictated by: Kati Miller M.D. on 05/12/2021 at 15:10 Approved by: Kati Miller M.D. on 05/12/2021 at 15:30
--- NOTE | 2021-05-12 | DI.ECHO.S_ITS ---
[place] [facility]---------+ [facility] +---------+ : : [address] : : : : [id number] : : : : Phone: [phone] Echocardiogram Report + + :Name: HANG HERNANDEZ Study Date: 05/12/2021 Height: 69.5 in: :[facility] ReadingLocation: Weight: 295 lb : : Gender: Male BSA: 2.4 m2 : :: 1950 Age: 70 yrs BP: 148/94 mmHg: :Reason For Study: DYSPNEA ON EXERTION : :Ordering Physician: INOCENCIA, : :LATOYA Performed By: Lindy Stanton : :Referring: LATOYA PRO : + + Interpretation Summary Left ventricular systolic function remains mildly reduced with an estimated ejection fraction of 45 to 50% with mild global hypokinesis but no obvious focal wall motion abnormalities and appears unchanged from the previous study. The left ventricle remains borderline enlarged that is unchanged with borderline concentric LVH that may be slightly progressive. There is likely a diastolic relaxation abnormality but normal filling pressures, similar to the previous study. The right ventricle grossly appears normal and unchanged from the previous study. Right ventricular systolic pressure cannot be estimated but CVP is likely around 8 mmHg. Both atria are mildly enlarged but slightly smaller compared to the previous study. There is no significant valvular heart disease. The ascending aorta is mild to moderately enlarged and the aortic arch is mildly enlarged but both are unchanged from the previous study. Procedure: A two-dimensional transthoracic echocardiogram with color flow and Doppler was performed. The study quality was technically adequate. Comparison is made with the echocardiogram of 04/15/2019. The patient was in sinus rhythm with heart rates between 73-80 bpm during the exam. Left Ventricle: The left ventricle is borderline dilated. This is unchanged compared to the previous study. The estimated left ventricular end diastolic volume is 100 ml. There is borderline concentric left ventricular hypertrophy. Left ventricular systolic function is mildly reduced. The ejection fraction is estimated to be 45-50%. There is mild global hypokinesis of the left ventricle. There are no focal wall motion abnormalities. This is unchanged compared to the previous study. Diastolic parameters suggest a relaxation abnormality of the left ventricle, consistent with probable normal filling pressures. This is unchanged compared to the previous study. Right Ventricle: The right ventricle is normal in size and function. This is unchanged compared to the previous study. Atria: Both atria are mildly dilated. Both atria have mildly decreased in size since the prior echo exam. There is no Doppler evidence for an interatrial shunt. Mitral Valve: The mitral valve is normal in structure and function. There is trace mitral regurgitation. This is unchanged compared to the previous study. Aortic Valve: The aortic valve is trileaflet. The aortic valve opens well. There is no aortic valve stenosis. No aortic regurgitation is present. Tricuspid Valve: The tricuspid valve is normal in structure and function. There is trace tricuspid regurgitation. Pulmonary artery pressures cannot be estimated because of the lack of a measurable TR jet velocity but the IVC suggests a CVP of around 8 mmHg. Pulmonic Valve: The pulmonic valve leaflets are thin and pliable; valve motion is normal. There is trace pulmonic regurgitation. Great Vessels: The aortic root is normal size. The ascending aorta is mild- moderately enlarged. The aortic arch is mildly enlarged. This is unchanged compared to the previous study. The IVC is dilated (diameter is greater than 2.1 cm) yet it collapses greater than 50% with a sniff. This suggests a right atrial pressure of 8 mm Hg. Pericardium/ Pleura There is no pericardial effusion. There is no pleural effusion. MMode/2D Measurements & Calculations LVIDd: 5.7 cm LVOT diam: 2.0 cm LVIDs: 4.0 cm Ao root diam: 3.5 cm FS: 28.4 % asc Aorta Diam: 3.9 cm EPSS: 1.1 cm Ao Arch Diam (Prox Trans): 3.3 cm IVSd: 0.91 cm LVPWd: 1.1 cm LV nur. diameter/BSA (cm/m^2): 2.3 LV sys. diameter/BSA (cm/m^2): 1.7 LA A2 area: 27.6 cm2 RA long axis: 5.5 cm LA A4 area: 24.2 cm2 RA area: 22.2 cm2 LA length (vol): 6.2 cm RA vol: 75.6 ml LA vol: 91.8 ml RA : 30.9 ml/m2 LA vol index: 37.5 ml/m2 IVC diam: 2.5 cm RVD1 (basal): 3.3 cm RVD2 (mid): 2.7 cm TAPSE: 2.5 cm Doppler Measurements & Calculations Ao V2 max: 113.5 cm/sec LVOT Max Yoandy: 79.9 cm/sec Ao V2 mean: 78.2 cm/sec LV V1 max P.6 mmHg Ao max P.1 mmHg LV V1 VTI: 16.7 cm Ao mean P.7 mmHg SUNSHINE(I,D): 2.5 cm2 Ao V2 VTI: 21.4 cm SUNSHINE(V,D): 2.3 cm2 sev ratio: 0.78 SUNSHINE indexed to BSA (cm^2/m^2): 1.0 MV E max yoandy: 54.9 cm/sec PA V2 max: 113.5 cm/sec MV A max yoandy: 64.0 cm/sec PA V2 mean: 78.6 cm/sec MV E/A: 0.86 PA mean P.8 mmHg Med Peak E' Yoandy: 7.0 cm/sec PA pr(Accel): 27.6 mmHg E/E' med: 7.8 Lat Peak E' Yoandy: 9.0 cm/sec E/E' lat: 6.1 E/e' average: 7.0 MV dec time: 0.26 sec SV(LVOT): 54.2 ml Reading Physician:12:32 PM
--- NOTE | 2021-05-12 11:47 | PM.TREADMILL ---
Cardiac Stress Test Report Referral & Results Indication: MORELAND; CAD Rest ECG: SINUS RHYTHM Procedure Note: NM TREADMILL STRESS TEST Impression: STANDARD RHEA PROTOCOL; MAX EFFORT ETT; WALTER +36%, REDUCED EXER CAPCITY; METS 7.0; EXER TIME 4:00; MAX HR REACHED 144 (96% OF MAX HR ACHIEVED); HAD APPROPRIATE HEMODYNAMIC RESPONSE; BASELINE ECG SINUS RHYTHM; NO SIGNIFICANT CHANGES ON ECG DURING OR AFTER EXER; ARTIFACT MADE INTERPRETATION DIFFICULT; DENIED CHEST DISCOMFORT; NO ECTOPY; HAD MODERATE SOB; MIBI SCAN PENDING; INFECTION CONTROL RN TO REVIEW; FARAZ KENNEY Please note: Actual ECG tracings can be found in the PACS system.
== END ==
PROVIDERS: PCP Physician Assistant Medical; Referring Provider Specialist; Visit Provider Specialist
DX: R06.00 Dyspnea, unspecified (principal); M47.816 Spondylosis without myelopathy or radiculopathy, lumbar region; I77.89 Other specified disorders of arteries and arterioles; M47.817 Spondylosis without myelopathy or radiculopathy, lumbosacral region; M48.061 Spinal stenosis, lumbar region without neurogenic claudication; M48.07 Spinal stenosis, lumbosacral region; M54.50 Low back pain, unspecified
CPT/HCPCS: 72148; 93306

== ENCOUNTER → 2021-05-24 11:00 | Outpatient (CLI) | payer MEDICARE, OTHER, SELFPAY ==
[2019-04-13 19:19] VITALS: BMI 37.3
--- NOTE | 2021-05-24 | DI.CT.S_ITS ---
PROCEDURE: CT ABDOMEN PELVIS WO/W CON INDICATIONS: Personal history of urinary calculi TECHNIQUE: Optional 5 mm thick noncontrast images acquired from the diaphragm to the symphysis pubis. After the administration of intravenous contrast, 5 mm thick images acquired from the diaphragm to the symphysis pubis after a 10-minute delay. 2 mm thick coronal and sagittal reformats were then performed of the kidneys and ureters. For radiation dose reduction, the following was used: automated exposure control, adjustment of mA and/or kV according to patient size. COMPARISON: [facility], US, US RENAL COMPLETE, 04/20/2021, 14:34. FINDINGS: Image quality: Excellent. Lung bases: Atelectasis in right lung base. Heart size is normal. Urinary system: There is a 6 mm stone in the right renal pelvis demonstrating CT density 462 HU. No ureteral stones. Both kidneys are normal in size, without hydronephrosis or nephrolithiasis on pre-contrast images. No perinephric fat stranding. There is normal bilateral renal enhancement. Renal calyces appear normal in morphology when filled with contrast. Opacified portions of both ureters demonstrate normal caliber. Bladder wall thickness is normal. No calcified bladder stones. Other solid organs: There are multiple hepatic cysts. Liver is normal in size and enhancement. Gallbladder may contain small gallstones. Biliary system is non dilated. Pancreas enhances normally. Spleen is normal in size and enhancement. No adrenal nodules. Peritoneum and bowel: Bowel loops demonstrate normal wall thickness and caliber. No free fluid or air. Nodes and vessels: No retroperitoneal or mesenteric adenopathy by size criteria. Aorta and inferior vena cava are normal in size. Mild atherosclerotic calcifications. Abdominal wall: No ventral hernias. Pelvis: No pathologic free pelvic fluid. No inguinal adenopathy. There is a moderate-sized fat containing right inguinal hernia. Penile implants are noted. Bones: Sternotomy. No suspicious bony lesions. No vertebral body compression fractures. Moderate to severe degenerative disc and facet disease in lower lumbar spine IMPRESSION: 1. A 6 mm nonobstructive stone in the right kidney. 2. Mild bladder wall thickening involving the right lateral bladder wall. Recommend cystoscopy for further evaluation. 3. Penile implant. 4. Fat containing right inguinal hernia. 5. Suspect cholelithiasis. If clinically indicated, gallbladder ultrasound would be helpful. Dictated by: Edson Adams M.D. on 05/24/2021 at 15:08 Approved by: Edson Adams M.D. on 05/24/2021 at 17:47
== END ==
PROVIDERS: PCP Physician Assistant Medical; Referring Provider Urology; Visit Provider Urology
DX: N20.0 Calculus of kidney (principal); R31.29 Other microscopic hematuria; K40.90 Unilateral inguinal hernia, without obstruction or gangrene, not specified as recurrent; Z87.442 Personal history of urinary calculi
CPT/HCPCS: 74178; Q9967

== ENCOUNTER 2023-04-26 11:32 | Day surgery (SDC) | payer MEDICARE, OTHER, SELFPAY ==
[2019-04-13 19:19] VITALS: BMI 37.3
--- NOTE | 2023-04-26 | PATH_ITS ---
[facility] Accession Number: [id number] No. of containers..02 Tissue . 01 Material submitted: . PART A: gastrointestinal site - GASTRIC PART B: esophagus - ESOPHAGAL BIOPSY . 01 Clinical history: . B: KNOWN GRIFFITHS'S . 01 Diagnosis: A. STOMACH, BIOPSY: Gastric body mucosa with no diagnostic abnormality. No evidence of Helicobacter organisms on H/E stain. Negative for intestinal metaplasia. Negative for dysplasia or malignancy. . B. ESOPHAGUS, BIOPSY: Proximal gastric-type mucosa with specialized intestinal metaplasia, consistent with Griffiths's esophagus. Negative for dysplasia and malignancy. MRV 04/28/2023 1527 Local . 01 Electronically signed: . Jonah Mckinnon MD, PhD, Pathologist NPI- [id number] . 01 Gross description: . Part A: GASTRIC: Received in formalin is 1 fragment(s) of barry, soft tissue measuring 0.2 x 0.2 x 0.2 cm submitted entirely in 1 cassette(s) Part B: ESOPHAGAL BIOPSY: Received in formalin are 4 fragment(s) of barry, soft tissue measuring 0.1 x 0.1 x 0.1 cm to 0.3 x 0.2 x 0.2 cm submitted entirely in 1 cassette(s) /BORIS 04/27/2023 1910 Local . 01 Pathologist provided ICD-10: K22.70 . 01 CPT . 352887, [id number] Specimen Comment: A courtesy copy of this report has been sent to [phone] Performed at: 01 [facility] [address] [place] [address] [address], [place], [place] [id number] MD Mervin Mariscal MD Phone: [phone]
[2023-04-26 12:25] VITALS: BP 136/85; PULSE 73; RESP 17; TEMP 36.5; O2SAT 95
--- NOTE | 2023-04-26 12:34 | PM.HP.1 ---
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 [facility] Medical History (Updated 12/16/19 @ 07:44 by Xi Iglesias RN) Asthma ADD (attention deficit disorder) Viral meningitis PVC's (premature ventricular contractions) History of syncope History of sepsis Prostatitis Dysphagia Chronic back pain Chest pain Cardiomyopathy Elder's esophagus Anxiety Polyneuropathy Osteoarthritis Arthritis Back pain CAD (coronary artery disease) Depression GERD (gastroesophageal reflux disease) HLD (hyperlipidemia) HTN (hypertension) Hypothyroid Kidney stones Neck pain RLS (restless legs syndrome) Sleep apnea TIA (transient ischemic attack) (10/24/17) Surgical History (Updated 12/16/19 @ 07:49 by Xi Iglesias RN) Hx of transurethral resection of prostate (04/03/19) Hx of lithotripsy (07/2017) Hx of hernia repair (1985) S/P left unicompartmental knee replacement (02/05/19) H/O: vasectomy Hx of right inguinal hernia repair (10/16/13) Hx of cardiac cath Hx of cystoscopy (06/05/18) Hx of cystoscopy (08/02/17) History of repair of hiatal hernia (~01/2017) History of penile implant S/P epidural steroid injection S/P CABG x 4 (~2000) Social History household members: spouse Smoking Status: Never smoker alcohol intake: former Meds Home Medications and Allergies Home Medications Medication Instructions Recorded Confirmed Type cetirizine 10 mg tablet (Zyrtec) 10 mg PO DAILY 01/25/19 04/26/23 History clopidogrel 75 mg tablet 75 mg PO DAILY 01/25/19 04/26/23 History cyclobenzaprine 10 mg tablet 10 mg PO TID PRN Muscle Spasm 01/25/19 04/26/23 History fluticasone propionate 50 2 spray intranasal DAILY PRN sinus 01/25/19 04/26/23 History mcg/actuation nasal allergy spray,suspension (Flonase Allergy Relief) furosemide 20 mg tablet 20 mg PO DAILY 01/25/19 04/26/23 History gabapentin 300 mg capsule 300 - 600 mg PO BID 01/25/19 04/26/23 History lamotrigine 200 mg tablet 200 mg PO DAILY 01/25/19 04/26/23 History (Lamictal) levothyroxine 100 mcg tablet 175 mcg PO DAILY 01/25/19 04/26/23 History losartan 50 mg tablet 50 mg PO DAILY 01/25/19 04/26/23 History pantoprazole 40 mg tablet,delayed 40 mg PO DAILY 01/25/19 04/26/23 History release potassium chloride 20 mEq 20 meq PO DAILY 01/25/19 04/26/23 History tablet,extended release ropinirole 2 mg tablet 2 mg PO DAILY 01/25/19 04/26/23 History rosuvastatin 40 mg tablet (Crestor) 40 mg PO DAILY 01/25/19 04/26/23 History trazodone 50 mg tablet 50 mg PO DAILY 01/25/19 04/26/23 History duloxetine 30 mg capsule,delayed 60 mg PO DAILY 12/17/19 04/26/23 History release metformin 1,000 mg tablet 1,000 mg PO BID 04/26/23 04/26/23 History nitrofurantoin macrocrystal 50 mg 50 mg PO DAILY 04/26/23 04/26/23 History capsule tamsulosin 0.4 mg capsule 0.8 mg PO DAILY 04/26/23 04/26/23 History Allergies Allergy/AdvReac Type Severity Reaction Status Date / Time No Known Drug Allergies Allergy Verified 04/26/23 12:19 Exam Vital Signs (past 8 hours): - 04/26/23 12:25 Temperature 97.7 F Pulse Rate 73 Respiratory Rate 17 Blood Pressure 136/85 Pulse Oximetry 95 Oxygen Delivery Method Room Air Oxygen Delivery Method Room Air Narrative Exam Narrative: Oropharynx free of lesions Chest clear to auscultation percussion Cardiac exam reveals no S3 or murmur Assessment & Plan Assessment & Plan narrative: History of short-segment Elder's esophagus need for follow-up EGD. Risks, benefits, alternatives have been explained.
--- NOTE | 2023-04-26 12:35 | PM.OP.EGD ---
Operative Date/Time/Diagnoses Date of procedure: 04/26/23 Pre-op diagnosis: See indication and findings Procedure & Clinicians Study performed: EGD Indications: Short-segment Elder's Surgeon: Viktoria Hollins Procedure Notes Procedure in detail: After informed consent was obtained the patient was placed in left lateral decubitus position. The video upper scope was placed into the oropharynx and with the patient's help swallowed into the esophagus. The esophagus stomach and duodenum were carefully examined. On withdrawal, retroflexed view the GE junction was performed. The scope was removed. The patient tolerated the procedure well. Blood loss none Complications none Sedation mac Findings 1. Short-segment Elder's, C0M1, biopsied x4 2. Scattered gastric erythema particularly in the antrum. Biopsies taken to rule out Helicobacter 3. Normal duodenal bulb and sweep Will be in touch regarding biopsies. Patient will need follow-up EGD in 3-5 years.
[2023-04-26] MEDS: LACTATED RINGERS 1,000 ML 42 ML IV (12:38)
[2023-04-26 13:12] VITALS: BP 141/86; PULSE 67; RESP 16; TEMP 36.6; O2SAT 90
[2023-04-26 13:17] VITALS: BP 148/84; PULSE 63; RESP 16; O2SAT 90
[2023-04-26 13:22] VITALS: BP 148/84; PULSE 61; RESP 16; O2SAT 90
[2023-04-26 13:27] VITALS: BP 130/94; PULSE 65; RESP 16; TEMP 36.4; O2SAT 91
[2023-04-26 13:31] VITALS: BP 126/75; PULSE 74; RESP 16; TEMP 36.4; O2SAT 91
== END 2023-04-26 13:40 | disposition home or self-care (01) ==
PROVIDERS: PCP Physician Assistant Medical; Referring Provider Internal Medicine Gastroenterology; Visit Provider Internal Medicine Gastroenterology
PROC: 0DJ08ZZ Inspection of Upper Intestinal Tract, Via Natural or Artificial Opening Endoscopic (ICD-10-PCS; CPT 43239; principal; 2023-04-26 12:30)
DX: K22.70 Barrett's esophagus without dysplasia (principal)
CPT/HCPCS: 43239; J2704

== ENCOUNTER 2023-07-23 17:59 | Observation (INO) | payer MEDICARE, OTHER, SELFPAY ==
[2019-04-13 19:19] VITALS: BMI 37.3
[2023-07-23] VITALS (13 sets, daily range): BP systolic 90–130; BP diastolic 50–78; PULSE 66–76; RESP 16–25; TEMP 36.2–36.3; O2SAT 93–98; BMI 38.7; BMI 37.7
--- NOTE | 2023-07-23 18:13 | DI.RAD.S_ITS ---
PROCEDURE: XR CHEST 1V INDICATIONS: chest pain TECHNIQUE: One view of the chest was acquired. COMPARISON: [facility], CR, XR CHEST 1V, 04/13/2019, 13:43. FINDINGS: Surgical changes and devices: Sternotomy wires and mediastinal clips are seen. Lungs and pleura: An incomplete inspiratory result is noted, causing a crowded appearance to the lung markings. No focal infiltrates are seen. No pneumothorax or significant pleural effusions are seen. Mediastinum: Mediastinal contours appear normal. Heart size is normal. Bones and chest wall: No suspicious bony lesions. Age-appropriate bony degenerative changes are seen. Overlying soft tissues appear unremarkable. There is an electronic device seen overlying the left thorax. IMPRESSION: Low lung volumes, without an acute abnormality seen by plain film. Postoperative and degenerative changes are seen. Dictated by: Uriel Mata M.D. on 07/23/2023 at 18:08 Approved by: Uriel Mata M.D. on 07/23/2023 at 18:09
--- NOTE | 2023-07-23 18:13 | EKG_ITS ---
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
[2023-07-23 18:37] LABS: Add Manual Diff / Slide Review NO; Basophils Absolute Auto 0 /uL (0-100); Basophils Percent Auto 0.6 % (0-2); Eosinophils Absolute Auto 200 /uL (0-450); Eosinophils Percent Auto 2.5 % (2-4); Hematocrit 40.3 % (41-53); Hemoglobin 13.7 g/dL (13.5-17.5); Lymphocytes Absolute Auto 1600 /uL (1100-4500); Lymphocytes Percent Auto 25.3 % (25-40); Mean Corpuscular HGB Conc 34.1 % (30-36); Mean Corpuscular Hemoglobin 30.5 PG (26-34); Mean Corpuscular Volume 89.5 fL (80-100); Monocytes Absolute Auto 500 /uL (0-900); Monocytes Percent Auto 7.5 % (3-14); Neutrophils Absolute Auto 4000 /uL (1500-7000); Neutrophils Percent Auto 64.1 % (50-75); Platelet Count 165 X10^3/uL (150-400); Red Cell Distribution Width 14.4 % (11.6-14.8); White Blood Cell Count 6.2 X10^3/uL (4.5-11.0)
[2023-07-23 18:41] LABS: INR 1.1 (0.9-1.3); Prothrombin Time 12.2 SECONDS (9.4-12.5)
[2023-07-23 18:44] LABS: PTT Partial Thromboplastin Tim 36 SECONDS (25.1-36.5)
[2023-07-23 18:47] LABS: Alanine Aminotransferase 19 IU/L (<50); Albumin 4.6 g/dL (3.5-5.0); Albumin Globulin Ratio 1.8 (1.0-2.8); Alkaline Phosphatase 31 U/L (38-126); Aspartate Aminotransferase 28 IU/L (17-59); Bilirubin Total 0.6 mg/dL (0.2-1.3); Blood Urea Nitrogen 18 mg/dL (9-20); Calcium 9.6 mg/dL (8.4-10.2); Carbon Dioxide 29 mmol/L (22-32); Chloride 103 mmol/L (98-107); Creatine Kinase 124 U/L (55-170); Estimated Glomerular Filt Rate > 60 mL/min (>60); Globulin 2.6 g/dL (1.7-4.1); Glucose 81 mg/dL (80-110); HEMOLYSIS 20 (0-50); Lipase 94 U/L (23-300); Magnesium 2.1 mg/dL (1.6-2.3); Potassium 3.6 mmol/L (3.4-5.1); Sodium 137 mmol/L (137-145); Total Protein 7.2 g/dL (6.3-8.2)
--- NOTE | 2023-07-23 18:54 | ED_ITS ---
HPI - Fall General Chief Complaint: Fall Stated Complaint: Dizzyness, Falling Time Seen by Provider: 07/23/23 18:46 History of Present Illness HPI Narrative: Patient is a 72-year-old history CABG 4 vessel hypertension, Parkinson's presenting today with dizziness lightheadedness and passing out. He actually saw his associate software development engineer Dr. Amaya a couple days ago he had a syncopal episode about 1 week ago where he fell when he went to open the front door passed out briefly he recovered and was not evaluated that time. Cardiology put him on a ZIO patch which he is currently wearing now. Today he was wetting another syncopal episode or near syncopal episode and 70 noticed that his lips were a little bit blue. He reports that he has been checking his blood pressure at home and it has had some low readings with systolic in the 100s. He feels a little dizzy and weak. Not really having significant shortness of breath chest pain or palpitations. He has no numbness tingling or weakness. Looking at medications he does take losartan, furosemide and ropinirole. Related Data Home Medications Medication Instructions Recorded Confirmed clopidogrel 75 mg tablet 75 mg PO DAILY 01/25/19 07/23/23 cyclobenzaprine 10 mg tablet 10 mg PO TID PRN Muscle Spasm 01/25/19 07/23/23 furosemide 20 mg tablet 20 mg PO DAILY 01/25/19 07/23/23 gabapentin 300 mg capsule 600 - 1,200 mg PO BID 01/25/19 07/23/23 lamotrigine 200 mg tablet 200 mg PO BEDTIME 01/25/19 07/23/23 (Lamictal) losartan 50 mg tablet 50 mg PO BID 01/25/19 07/23/23 pantoprazole 40 mg tablet,delayed 40 mg PO DAILY 01/25/19 07/23/23 release potassium chloride 20 mEq 40 meq PO DAILY 01/25/19 07/23/23 tablet,extended release ropinirole 2 mg tablet 6 mg PO BID 01/25/19 07/23/23 rosuvastatin 40 mg tablet (Crestor) 40 mg PO BEDTIME 01/25/19 07/23/23 trazodone 50 mg tablet 50 mg PO BEDTIME 01/25/19 07/23/23 duloxetine 30 mg capsule,delayed 60 mg PO DAILY 12/17/19 07/23/23 release metformin 1,000 mg tablet 1,000 mg PO BID 04/26/23 07/23/23 nitrofurantoin macrocrystal 50 mg 50 mg PO BEDTIME 04/26/23 07/23/23 capsule tamsulosin 0.4 mg capsule 0.8 mg PO BEDTIME 04/26/23 07/23/23 Glucosomine 07/23/23 Iron 28 28 mg PO DAILY 07/23/23 07/23/23 [id number] Cysteine 600 mg PO 07/23/23 alpha lipoic acid 200 mg capsule 600 mg PO BID 07/23/23 07/23/23 calcium carbonate 200 mg PO TID 07/23/23 07/23/23 cetirizine 10 mg tablet (Aller-Steve) 10 mg PO DAILY 07/23/23 07/23/23 chlorthalidone 25 mg tablet 12.5 mg PO QAM 07/23/23 07/23/23 cholecalciferol (vitamin D3) 100 3,000 mcg PO DAILY 07/23/23 07/23/23 mcg (4,000 unit) capsule coenzyme Q10 100 mg capsule 100 mg PO DAILY 07/23/23 07/23/23 (CoQ-10) cyanocobalamin (vitamin B-12) 1,000 mcg PO DAILY 07/23/23 07/23/23 1,000 mcg tablet (Vitamin B-12) finasteride 5 mg tablet 5 mg PO DAILY 07/23/23 07/23/23 fluticasone propionate 110 2 puff inhalation BID 07/23/23 07/23/23 mcg/actuation HFA aerosol inhaler lactobacillus comb no.10 20 60 mmu cells PO DAILY 07/23/23 07/23/23 billion cell capsule (Probiotic) levothyroxine 175 mcg capsule 175 mcg PO DAILY 07/23/23 07/23/23 melatonin 5 mg tablet 5 mg PO BEDTIME insomnia 07/23/23 07/23/23 multivitamin 1 tab PO DAILY 07/23/23 07/23/23 pantoprazole 40 mg tablet,delayed 80 mg PO DAILY 07/23/23 07/23/23 release potassium chloride 20 mEq 20 meq PO BEDTIME 07/23/23 07/23/23 tablet,extended release vitamin C-vitamin E capsule 1 cap PO DAILY 07/23/23 07/23/23 Allergies Allergy/AdvReac Type Severity Reaction Status Date / Time No Known Drug Allergies Allergy Verified 04/26/23 12:19 Patient History Medical History (Updated 07/23/23 @ 22:29 by Seb Nicholson MD) BPH loc w urin obs/LUTS Asthma ADD (attention deficit disorder) Viral meningitis PVC's (premature ventricular contractions) History of syncope History of sepsis Prostatitis Dysphagia Chronic back pain Chest pain Cardiomyopathy Elder's esophagus Anxiety Polyneuropathy Osteoarthritis Arthritis Back pain CAD (coronary artery disease) Depression GERD (gastroesophageal reflux disease) HLD (hyperlipidemia) HTN (hypertension) Hypothyroid Kidney stones Neck pain RLS (restless legs syndrome) Sleep apnea TIA (transient ischemic attack) (10/24/17) Surgical History Hx of transurethral resection of prostate (04/03/19) Hx of lithotripsy (07/2017) Hx of hernia repair (1985) S/P left unicompartmental knee replacement (02/05/19) H/O: vasectomy Hx of right inguinal hernia repair (10/16/13) Hx of cardiac cath Hx of cystoscopy (06/05/18) Hx of cystoscopy (08/02/17) History of repair of hiatal hernia (~01/2017) History of penile implant S/P epidural steroid injection S/P CABG x 4 (~2000) Social History household members: spouse Smoking Status: Never smoker alcohol intake: never Smoking Status: Never smoker Substance Use Type: does not use Exam Initial Vital Signs Initial Vital Signs: Vital Signs Temperature 97.1 F L 07/23/23 18:05 Pulse Rate 75 07/23/23 18:05 Respiratory Rate 16 07/23/23 18:05 Blood Pressure 90/66 07/23/23 18:05 Pulse Oximetry 96 07/23/23 18:05 Oxygen Delivery Method Room Air 07/23/23 18:05 GENERAL: Alert pleasant well-appearing HEENT: Head atraumatic,EOMI, pupils reactive, face symmetric, [moist] mucous membranes CARDIOVASCULAR: Regular rate and rhythm without murmurs, rubs or gallops. RESPIRATORY: Breath sounds equal bilaterally, no wheezes rales or rhonchi. ABDOMEN: Soft, nontender. Normoactive bowel sounds all 4 quadrants. No guarding or rebound. EXTREMITIES: Normal range of motion, no clubbing or edema. Neurovascularly intact NEUROLOGICAL: Alert and oriented x4. Normal speech no focal deficits SKIN: Warm, dry, no laceration, no petechiae, no rashes or lesions. Course Orders Ordered: ED Orders 07/23/23 18:13 XR chest 1V Stat EKG-12 Lead Stat 07/23/23 18:15 Lactate (Lactic Acid) Stat 07/23/23 18:19 Complete Blood Count AUTO DIFF Stat Comprehensive Metabolic Panel Stat Lipase Stat Magnesium Stat PTT Partial Thromboplastin Balaji Stat Prothrombin Time INR Stat Troponin & CK Cardiac Panel Stat Acetaminophen (Acetaminophen 325 Mg Tablet) 650 mg PO Q6H PRN PRN Reason: Fever/Mild Pain (1-3) Last Admin: 07/23/23 23:37 Dose: 650 mg Documented By: KAREY Al Hydrox/Mg Hydrox/Simethicone (Mag Hydrox/Alum/Simeth 30 Ml Udc) 30 ml PO Q6HR PRN PRN Reason: Dyspepsia Atorvastatin Calcium (Atorvastatin 20 Mg Tablet) 80 mg PO DAILY SUSAN Budesonide (Budesonide 0.5 Mg/2 Ml Neb) 0.5 mg INH RTBID SUSAN Clopidogrel Bisulfate (Clopidogrel 75 Mg Tablet) 75 mg PO DAILY SUSAN Duloxetine HCl (Duloxetine 30 Mg Capsule) 60 mg PO DAILY SUSAN Finasteride (Finasteride 5 Mg Tablet) 5 mg PO DAILY SUSAN Gabapentin (Gabapentin 300 Mg Capsule) 600 mg PO BID SUSAN Lamotrigine (Lamotrigine 100 Mg Tablet) 200 mg PO DAILY [facility] Levothyroxine Sodium (Levothyroxine 100 Mcg Tablet) 100 mcg PO QACBREAK SUSAN Levothyroxine Sodium (Levothyroxine 75 Mcg Tablet) 75 mcg PO QACBREAK [facility] Melatonin (Melatonin 3 Mg Tablet) 6 mg PO BEDTIME SUSAN Metformin HCl (Metformin Hcl 500 Mg Tablet) 1,000 mg PO BIDWM SUSAN Naloxone HCl (Naloxone 0.4 Mg/Ml Vial) 0.2 mg IV Q2MIN PRN PRN Reason: Opiate Reversal Non-Formulary Medication (Nitrofurantoin Macrocrystal) 50 mg PO DAILY SUSAN Pantoprazole Sodium (Pantoprazole Dr 40 Mg Tablet) 40 mg PO DAILY SUSAN Pantoprazole Sodium (Pantoprazole Dr 20 Mg Tablet) 20 mg PO BEDTIME SUSAN Ropinirole HCl (Ropinirole 1 Mg Tablet) 2 mg PO BID SUSAN Sodium Chloride (Sodium Chloride 0.9% Flush) 10 ml IV PRN PRN PRN Reason: Flush Sodium Chloride (Sodium Chloride 0.9% Flush) 10 ml IV BID SUSAN Tamsulosin HCl (Tamsulosin 0.4 Mg Capsule) 0.8 mg PO BEDTIME SUSAN Discontinued Medications Sodium Chloride (Normal Saline 0.9%) 1,000 mls @ 1,000 mls/hr IV BOLUS ONE Stop: 07/23/23 20:32 Last Infusion: 07/23/23 21:19 Dose: Infused Documented By: Admin: 07/23/23 19:39 Dose: 1,000 mls/hr Documented By: LAKE Loratadine (Loratadine 10 Mg Tablet) 10 mg PO DAILY SUSAN Pantoprazole Sodium (Pantoprazole Dr 40 Mg Tablet) 80 mg PO DAILY SUSAN Trazodone HCl (Trazodone 50 Mg Tablet) 50 mg PO BEDTIME SUSAN Last Admin: 07/23/23 23:37 Dose: 50 mg Documented By: KAREY Vital Signs Vital signs: Vital Signs - 8 hr 07/23/23 18:05 07/23/23 18:58 07/23/23 18:59 Temperature 97.1 F L Pulse Rate 75 68 69 Respiratory Rate 16 24 Blood Pressure 90/66 Pulse Oximetry 96 97 97 Oxygen Delivery Method Room Air 07/23/23 18:59 07/23/23 19:00 07/23/23 19:07 Temperature Pulse Rate 72 Respiratory Rate 24 Blood Pressure 100/50 L 116/65 Pulse Oximetry 98 Oxygen Delivery Method Room Air 07/23/23 19:07 07/23/23 19:13 07/23/23 19:13 Temperature Pulse Rate 68 67 Respiratory Rate 18 17 Blood Pressure 122/67 Pulse Oximetry 94 94 Oxygen Delivery Method 07/23/23 19:30 07/23/23 20:00 07/23/23 20:33 Temperature Pulse Rate 69 66 75 Respiratory Rate 18 17 18 Blood Pressure Pulse Oximetry 97 93 98 Oxygen Delivery Method Room Air 07/23/23 20:35 07/23/23 20:35 07/23/23 21:00 Temperature Pulse Rate 72 69 Respiratory Rate 21 19 Blood Pressure 129/61 Pulse Oximetry 96 95 Oxygen Delivery Method 07/23/23 21:30 Temperature Pulse Rate 74 Respiratory Rate 25 H Blood Pressure Pulse Oximetry 96 Oxygen Delivery Method MDM - Fall Lab Data 07/23/23 18:19 07/23/23 18:19 Labs: Lab Results 07/23/23 07/23/23 Range/Units 18:15 18:19 WBC 6.2 (4.5-11.0) X10^3/uL RBC 4.50 (4.5-5.9) X10^6/uL Hgb 13.7 (13.5-17.5) g/dL Hct 40.3 L (41-53) % MCV 89.5 (80-100) fL MCH 30.5 (26-34) PG MCHC 34.1 (30-36) % RDW 14.4 (11.6-14.8) % Plt Count 165 (150-400) X10^3/uL Neut % (Auto) 64.1 (50-75) % Lymph % (Auto) 25.3 (25-40) % [place] % (Auto) 7.5 (3-14) % Eos % (Auto) 2.5 (2-4) % Baso % (Auto) 0.6 (0-2) % Neut # (Auto) 4000 (0732-3273) /uL Lymph # (Auto) 1600 (1799-9097) /uL [place] # (Auto) 500 (0-900) /uL Eos # (Auto) 200 (0-450) /uL Baso # (Auto) 0 (0-100) /uL PT 12.2 (9.4-12.5) SECONDS INR 1.1 (0.9-1.3) APTT 36 (25.1-36.5) SECONDS Sodium 137 (137-145) mmol/L Potassium 3.6 (3.4-5.1) mmol/L Chloride 103 (98-107) mmol/L Carbon Dioxide 29 (22-32) mmol/L BUN 18 (9-20) mg/dL Creatinine 1.20 (0.66-1.25) mg/dL Estimated GFR > 60 (>60) mL/min BUN/Creatinine Ratio 15.0 (6-22) Glucose 81 (80-110) mg/dL Lactate 1.2 (0.7-2.1) mmol/L Calcium 9.6 (8.4-10.2) mg/dL Magnesium 2.1 (1.6-2.3) mg/dL Total Bilirubin 0.6 (0.2-1.3) mg/dL AST 28 (17-59) IU/L ALT 19 (<50) IU/L Alkaline Phosphatase 31 L (38-126) U/L Total Creatine Kinase 124 (55-170) U/L Troponin I < 0.012 (0.01-0.034) ng/mL Total Protein 7.2 (6.3-8.2) g/dL Albumin 4.6 (3.5-5.0) g/dL Globulin 2.6 (1.7-4.1) g/dL Albumin/Globulin Ratio 1.8 (1.0-2.8) Lipase 94 (23-300) U/L Imaging Data Chest x-ray: Radiologist's Impression: PROCEDURE: XR CHEST 1V INDICATIONS: chest pain TECHNIQUE: One view of the chest was acquired. COMPARISON: [facility], , XR CHEST 1V, 04/13/2019, 13:43. FINDINGS: Surgical changes and devices: Sternotomy wires and mediastinal clips are seen. Lungs and pleura: An incomplete inspiratory result is noted, causing a crowded appearance to the lung markings. No focal infiltrates are seen. No pneumothorax or significant pleural effusions are seen. Mediastinum: Mediastinal contours appear normal. Heart size is normal. Bones and chest wall: No suspicious bony lesions. Age-appropriate bony degenerative changes are seen. Overlying soft tissues appear unremarkable. There is an electronic device seen overlying the left thorax. IMPRESSION: Low lung volumes, without an acute abnormality seen by plain film. Postoperative and degenerative changes are seen. Dictated by: Uriel Mata M.D. on 07/23/2023 at 18:08 ECG Data Interpretation: Normal sinus rhythm rate 76 IN interval 156 QRS [address] changes Q-wave noted in lead 3 only Repeat EKG normal sinus rhythm rate 68 no ischemia no arrhythmia MDM Narrative Medical decision making narrative: Patient 72-year-old male presents today with dizziness lightheadedness and least 2 syncopal or near syncopal episodes this week. It is noted to be hypotensive at home but not all the time. He was hypotensive here initial blood pressure with a systolic in the 90s with repeat 100/50. There was initially some concern for cardiac arrhythmia however I think that what we saw on the monitor was artifact. EKG at the same time as arrhythmia on the monitor did not confirm an arrhythmia. The lead on the monitor was changed the EKG in the monitor now match. He is also wearing a ZIO patch. Blood work has been reviewed overall reassuring, WBC 6.2 hemoglobin 13 7 hematocrit 43 platelets 65 INR 1.1, sodium 137 potassium 3.64 and 103 carbon dioxide 29 BUN 18 creatinine 1.2 glucose 81 T bili 0.6 AST 28 ALT 19 alk-phos 31 troponin negative lipase 94 lactic acid 1.2 Chest x-ray no acute cardiopulmonary process Suspect patient is having orthostatic hypotension secondary to ropinirole. He is also taking losartan and tamsulosin and furosemide. He reports he has been on all of these medications for a long time. He desperately needs his ropinirole for his restless leg. After 2 syncopal episodes and hypotension in the ED reasonable to admit for monitoring and medication adjustment Dr. Nicholson accepts patient Discharge Plan Departure Patient Disposition: Admitted As Inpatient Clinical Impression: Syncope Admit Date/Time: 07/23/23 21:47 Admit Provider: Seb Haley
[2023-07-23 18:58] LABS: Troponin I < 0.012 ng/mL (0.01-0.034)
[2023-07-23 19:10] LABS: Lactate (Lactic Acid) 1.2 mmol/L (0.7-2.1)
--- NOTE | 2023-07-23 19:12 | EKG_ITS ---
[address] [address] Test Date: 2023-07-23 Pat Name: Broderick Mccallum Department: Room: 221 Gender: Male Turn Laster: JULIO : 1950 Requested By: Order Number: [id number] Reading MD: Jonah Verde Measurements Intervals [place] Rate: 68 P: 47 [place]: 124 QRS: 52 QRSD: 100 T: 94 QT: 414 QTc: 440 Interpretive Statements Normal sinus rhythm Nonspecific T wave abnormality Electronically Signed On 07-26-2023 18:31:50 PDT by Jonah Verde
[2023-07-23] MEDS: SODIUM CHLORIDE 0.9% 1,000 ML 1000 ML IV (19:39)
--- NOTE | 2023-07-23 22:18 | PM.HP.1 ---
History of Present Illness History of Present Illness Chief complaint: Dizzyness, Falling Narrative: 72 y/o with PMH of CAD, HTN, GERD, hypothyroidism, BPH presented after he had presyncopal episode earlier today. Lately he developed recurrent syncope and had low BP measurements on several occasions, such as today on arrival to ED. He was attending a wedding today when he suddenly couldn't understand what he was hearing and felt dizzy. On Losartan 50 mg bid, chlorthalidone 12.5 mg and Lasix 20 mg daily for HTN, on Finasteride and 0.8 mg of Flomax for BPH, on Ropinirole, Gabapentin, Flexeril. Seen by threshing department supervisor few days ago and had Zio patch placed, being suspected for arrhythmia. In the ED workup non-revealing apart from hypotension with SBP in 90-ies, EKG NSR 75, CBC, CMP, troponin - all WNR. Given 1 l of NS and placed in observation on telemetry [facility] Medical History (Updated 07/23/23 @ 22:29 by Seb Nicholson MD) BPH loc w urin obs/LUTS Asthma ADD (attention deficit disorder) Viral meningitis PVC's (premature ventricular contractions) History of syncope History of sepsis Prostatitis Dysphagia Chronic back pain Chest pain Cardiomyopathy Elder's esophagus Anxiety Polyneuropathy Osteoarthritis Arthritis Back pain CAD (coronary artery disease) Depression GERD (gastroesophageal reflux disease) HLD (hyperlipidemia) HTN (hypertension) Hypothyroid Kidney stones Neck pain RLS (restless legs syndrome) Sleep apnea TIA (transient ischemic attack) (10/24/17) Surgical History Hx of transurethral resection of prostate (04/03/19) Hx of lithotripsy (07/2017) Hx of hernia repair (1985) S/P left unicompartmental knee replacement (02/05/19) H/O: vasectomy Hx of right inguinal hernia repair (10/16/13) Hx of cardiac cath Hx of cystoscopy (06/05/18) Hx of cystoscopy (08/02/17) History of repair of hiatal hernia (~01/2017) History of penile implant S/P epidural steroid injection S/P CABG x 4 (~2000) Social History household members: spouse Smoking Status: Never smoker alcohol intake: never Meds Home Medications and Allergies Home Medications Medication Instructions Recorded Confirmed Type clopidogrel 75 mg tablet 75 mg PO DAILY 01/25/19 07/23/23 History cyclobenzaprine 10 mg tablet 10 mg PO TID PRN Muscle Spasm 01/25/19 07/23/23 History furosemide 20 mg tablet 20 mg PO DAILY 01/25/19 07/23/23 History gabapentin 300 mg capsule 600 - 1,200 mg PO BID 01/25/19 07/23/23 History lamotrigine 200 mg tablet 200 mg PO BEDTIME 01/25/19 07/23/23 History (Lamictal) losartan 50 mg tablet 50 mg PO BID 01/25/19 07/23/23 History pantoprazole 40 mg tablet,delayed 40 mg PO DAILY 01/25/19 07/23/23 History release potassium chloride 20 mEq 40 meq PO DAILY 01/25/19 07/23/23 History tablet,extended release ropinirole 2 mg tablet 6 mg PO BID 01/25/19 07/23/23 History rosuvastatin 40 mg tablet (Crestor) 40 mg PO BEDTIME 01/25/19 07/23/23 History trazodone 50 mg tablet 50 mg PO BEDTIME 01/25/19 07/23/23 History duloxetine 30 mg capsule,delayed 60 mg PO DAILY 12/17/19 07/23/23 History release metformin 1,000 mg tablet 1,000 mg PO BID 04/26/23 07/23/23 History nitrofurantoin macrocrystal 50 mg 50 mg PO BEDTIME 04/26/23 07/23/23 History capsule tamsulosin 0.4 mg capsule 0.8 mg PO BEDTIME 04/26/23 07/23/23 History Glucosomine 07/23/23 History Iron 28 28 mg PO DAILY 07/23/23 07/23/23 History [id number]-Lyeumk Cysteine 600 mg PO 07/23/23 History alpha lipoic acid 200 mg capsule 600 mg PO BID 07/23/23 07/23/23 History calcium carbonate 200 mg PO TID 07/23/23 07/23/23 History cetirizine 10 mg tablet (Aller-Steve) 10 mg PO DAILY 07/23/23 07/23/23 History chlorthalidone 25 mg tablet 12.5 mg PO QAM 07/23/23 07/23/23 History cholecalciferol (vitamin D3) 100 3,000 mcg PO DAILY 07/23/23 07/23/23 History mcg (4,000 unit) capsule coenzyme Q10 100 mg capsule 100 mg PO DAILY 07/23/23 07/23/23 History (CoQ-10) cyanocobalamin (vitamin B-12) 1,000 mcg PO DAILY 07/23/23 07/23/23 History 1,000 mcg tablet (Vitamin B-12) finasteride 5 mg tablet 5 mg PO DAILY 07/23/23 07/23/23 History fluticasone propionate 110 2 puff inhalation BID 07/23/23 07/23/23 History mcg/actuation HFA aerosol inhaler lactobacillus comb no.10 20 60 mmu cells PO DAILY 07/23/23 07/23/23 History billion cell capsule (Probiotic) levothyroxine 175 mcg capsule 175 mcg PO DAILY 07/23/23 07/23/23 History melatonin 5 mg tablet 5 mg PO BEDTIME insomnia 07/23/23 07/23/23 History multivitamin 1 tab PO DAILY 07/23/23 07/23/23 History pantoprazole 40 mg tablet,delayed 80 mg PO DAILY 07/23/23 07/23/23 History release potassium chloride 20 mEq 20 meq PO BEDTIME 07/23/23 07/23/23 History tablet,extended release vitamin C-vitamin E capsule 1 cap PO DAILY 07/23/23 07/23/23 History Allergies Allergy/AdvReac Type Severity Reaction Status Date / Time No Known Drug Allergies Allergy Verified 04/26/23 12:19 Review of Systems Constitutional Comments: w/o fever or chills Eyes Comments: w/o recent vision changes ENT Comments: seasonal allergies Cardiovascular Comments: w/o palpitations or chest pain Respiratory Comments: has chronic exertional dyspnea, w/o orthopnea or cough Gastrointestinal Comments: heartburn Genitourinary Comments: w/o dysuria Musculoskeletal Comments: chronic LBP Neurologic Comments: chronic burning pain in both feet Exam Vital Signs (past 8 hours): - 07/23/23 18:05 07/23/23 18:58 07/23/23 18:59 Temperature 97.1 F L Pulse Rate 75 68 69 Respiratory Rate 16 24 Blood Pressure 90/66 Pulse Oximetry 96 97 97 Oxygen Delivery Method Room Air 07/23/23 18:59 07/23/23 19:00 07/23/23 19:07 Temperature Pulse Rate 72 Respiratory Rate 24 Blood Pressure 100/50 L 116/65 Pulse Oximetry 98 Oxygen Delivery Method Room Air 07/23/23 19:07 07/23/23 19:13 07/23/23 19:13 Temperature Pulse Rate 68 67 Respiratory Rate 18 17 Blood Pressure 122/67 Pulse Oximetry 94 94 Oxygen Delivery Method 07/23/23 19:30 07/23/23 20:00 07/23/23 20:33 Temperature Pulse Rate 69 66 75 Respiratory Rate 18 17 18 Blood Pressure Pulse Oximetry 97 93 98 Oxygen Delivery Method Room Air 07/23/23 20:35 07/23/23 20:35 07/23/23 21:00 Temperature Pulse Rate 72 69 Respiratory Rate 21 19 Blood Pressure 129/61 Pulse Oximetry 96 95 Oxygen Delivery Method 07/23/23 21:30 Temperature Pulse Rate 74 Respiratory Rate 25 H Blood Pressure Pulse Oximetry 96 Oxygen Delivery Method Oxygen Delivery Method Room Air Const Other: Sitting in bed in no distress, at bedside HENMT Other: normocephalic Eyes Other: EOMI Neck Other: supple Resp Other: normal respiratory effort at rest, w/o wheezing Cardio Other: RRR, w/o murmurs, w/o legs edema Skin Other: w/o rashes Neuro Other: w/o acute deficits Psych Other: lucid, mood is appropriate Objective ECG Impression: NSR 75, w/o ischemic changes Labs 07/23/23 18:19 07/23/23 18:19 Labs: Laboratory Results - last 24 hr 07/23/23 07/23/23 18:15 18:19 WBC 6.2 RBC 4.50 Hgb 13.7 Hct 40.3 L MCV 89.5 MCH 30.5 MCHC 34.1 RDW 14.4 Plt Count 165 Neut % (Auto) 64.1 Lymph % (Auto) 25.3 [place] % (Auto) 7.5 Eos % (Auto) 2.5 Baso % (Auto) 0.6 Neut # (Auto) 4000 Lymph # (Auto) 1600 [place] # (Auto) 500 Eos # (Auto) 200 Baso # (Auto) 0 PT 12.2 INR 1.1 APTT 36 Sodium 137 Potassium 3.6 Chloride 103 Carbon Dioxide 29 BUN 18 Creatinine 1.20 Estimated GFR > 60 BUN/Creatinine Ratio 15.0 Glucose 81 Lactate 1.2 Calcium 9.6 Magnesium 2.1 Total Bilirubin 0.6 AST 28 ALT 19 Alkaline Phosphatase 31 L Total Creatine Kinase 124 Troponin I < 0.012 Total Protein 7.2 Albumin 4.6 Globulin 2.6 Albumin/Globulin Ratio 1.8 Lipase 94 Assessment & Plan Assessment and plan (1) Syncope: Status: Acute (2) HTN (hypertension): Status: Acute (3) RLS (restless legs syndrome): Status: Acute (4) BPH loc w urin obs/LUTS: Status: Acute (5) CAD (coronary artery disease): Status: Acute (6) Depression: Status: Acute (7) GERD (gastroesophageal reflux disease): Status: Acute (8) HLD (hyperlipidemia): Status: Acute (9) Hypothyroid: Status: Acute (10) Sleep apnea: Problem details: BiPAP Status: Acute Assessment & Plan narrative: Recurrent Syncope / Near Syncope - DD: - Hypotension - at least with some of these events his BP was low. Holding Losartan and chlorthalidone/K On high Flomax dose, 0.8, apparently daily - continuing same dose, s/p TURP, Lithotripsy Decreased Ropinirole, continued prn gabapentin for back pain with Flexeril on hold - Arrhythmia - Hx of CAD / CABG.Has Zio patch, placed on telemetry. - autonomic neuropathy - on gabapentin and Lamictal for burning, presumably diabetic neuropathy, prescribed by pain doctor. - TIA - had unremarkable carotid USs HTN - see above, holding Losartan, chlorthalidone and Lasix. SBP 90 in ED. Had 1 L of NS. BPH with LUTS / Recurrent UTIs - Hx of TURP, lithotripsies - Flomax HS, 0.8 mg HS, Finasteride, suppressive Tx with Macrobid - UA pending CAD / HLD - Plavix, statin - w/o angina or ischemic changes on EKG, troponin flat GERD / Elder's Esophagus - PPI bid, prn Maalox Hypothyroidism - levothyroxine 175 mcg daily, TSH pending GORGE - on BiPAP DM - Metformin, CCT, CBGs DVT prophylaxis - SCDs Patient seen at [facility], in audio-visual, real-time encounter with integrated electronic stetoscope and nurse at bedside. Provider was in [place], [place].
[2023-07-23] MEDS: ACETAMINOPHEN 325 MG TABLET 650 MG PO (23:37)
[2023-07-23] MEDS: TRAZODONE 50 MG TABLET PO (23:37)
--- NOTE | 2023-07-23 23:57 | PC.ADMIT ---
[email or web address] Formerly [facility], later [facility] Admission Note: The patient,Broderick Mccallum,72 y/o, was given written information regarding hospital policies, unit procedures and contact persons. Patient's smoking status: Never smoker. Vital Signs - 8 hr 07/23/23 18:05 07/23/23 18:58 07/23/23 18:59 Temperature 97.1 F L Pulse Rate 75 68 69 Respiratory Rate 16 24 Blood Pressure 90/66 Pulse Oximetry 96 97 97 Oxygen Delivery Method Room Air Oxygen Flow Rate 07/23/23 18:59 07/23/23 19:00 07/23/23 19:07 Temperature Pulse Rate 72 Respiratory Rate 24 Blood Pressure 100/50 L 116/65 Pulse Oximetry 98 Oxygen Delivery Method Room Air Oxygen Flow Rate 07/23/23 19:07 07/23/23 19:13 07/23/23 19:13 Temperature Pulse Rate 68 67 Respiratory Rate 18 17 Blood Pressure 122/67 Pulse Oximetry 94 94 Oxygen Delivery Method Oxygen Flow Rate 07/23/23 19:30 07/23/23 20:00 07/23/23 20:33 Temperature Pulse Rate 69 66 75 Respiratory Rate 18 17 18 Blood Pressure Pulse Oximetry 97 93 98 Oxygen Delivery Method Room Air Oxygen Flow Rate 07/23/23 20:35 07/23/23 20:35 07/23/23 21:00 Temperature Pulse Rate 72 69 Respiratory Rate 21 19 Blood Pressure 129/61 Pulse Oximetry 96 95 Oxygen Delivery Method Oxygen Flow Rate 07/23/23 21:30 07/23/23 22:40 07/23/23 23:54 Temperature 97.3 F L Pulse Rate 74 76 Respiratory Rate 25 H 17 Blood Pressure 130/78 Pulse Oximetry 96 95 Oxygen Delivery Method Room Air Oxygen Flow Rate 0 Patient admitted to room 221 from ER per wheelchair. He is alert and oriented. Breath sounds CTA with RA sat of 95%. HRR w/telemetry reading of SR w/1st degree AVB + BBB. Denies any SOB (unless doing strenuous activity) or chest pain. Does have zio patch that is due to be sent in on . Denies nausea. BT present and abdomen is soft. Denies dysuria, frequency or urgency with urination; UA sent to lab as ordered. Is able to walk to bathroom with SBA and denied any dizziness or lightheadedness; instructed to call if needing to get out of bed related to recent fall due to syncopal episode which is what occurred resulting in admission to hospital. 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 Reports one leg is longer than the other resulting in his leaning when walking. Bilateral calf SCD's were applied. Dr. Nicholson visited with patient and his and discussed medications and possible causes of syncopal episodes with them. He listened to his heart via telecommunications. Patient did complain of headached and was medicated with Tylenol and provided ice pack per his request. Oriented to call light and bed controls. , Ting, rooming in.
--- NOTE | 2023-07-24 00:16 | RT ---
Patient states he does not need BiPAP tonight and will bring his home machine in tomorrow.
[2023-07-24 00:25] LABS: Appearance Urine UA CLEAR; Bilirubin Urine UA NEGATIVE (NEGATIVE); Color Urine UA YELLOW; Glucose Urine UA NEGATIVE (Negative); Ketones Urine UA NEGATIVE (NEGATIVE); Leukocyte Esterase Urine UA NEGATIVE (NEGATIVE); Nitrite Urine UA NEGATIVE (Negative); Occult Blood Urine UA NEGATIVE (Negative); Protein Urine UA NEGATIVE (Negative); Specific Gravity Urine UA 1.015 (1.000-1.035); Urobilinogen Urine UA 0.2 E.U./dL (0.2); pH Urine UA 5.5 (4.5-8.0)
[2023-07-24 00:44] LABS: Bacteria Urine None Seen; Culture Indicated Urine Cult Not Indicated; RBC Urine None Seen (0-5/HPF); Squamous Epithelial Cell Urine 0-1 /HPF (0-5/HPF); Urine Volume 10mL (spun); WBC Urine None Seen (0-5/HPF)
[2023-07-24 05:00] VITALS: BP 128/74; PULSE 68; RESP 16; TEMP 36.4; O2SAT 95
[2023-07-24] MEDS: LEVOTHYROXINE 100 MCG TABLET PO (06:03)
[2023-07-24] MEDS: LEVOTHYROXINE 75 MCG TABLET PO (06:03)
[2023-07-24 08:00] VITALS: BP 139/83; PULSE 63; RESP 16; TEMP 36.3; O2SAT 97
[2023-07-24] MEDS: BUDESONIDE 0.5 MG/2 ML NEB INH (08:38)
[2023-07-24] MEDS: METFORMIN HCL 500 MG TABLET 1000 MG PO (08:38)
[2023-07-24 08:39] VITALS: PULSE 68; RESP 16; O2SAT 98
[2023-07-24] MEDS: DULOXETINE 30 MG CAPSULE 60 MG PO (08:39)
[2023-07-24] MEDS: lamoTRIgine 100 MG TABLET 200 MG PO (08:39)
[2023-07-24] MEDS: CLOPIDOGREL 75 MG TABLET PO (08:39)
[2023-07-24] MEDS: GABAPENTIN 300 MG CAPSULE 600 MG PO (08:39)
[2023-07-24] MEDS: FINASTERIDE 5 MG TABLET PO (08:39)
[2023-07-24] MEDS: ATORVASTATIN 20 MG TABLET 80 MG PO (08:39)
[2023-07-24] MEDS: PANTOPRAZOLE DR 40 MG TABLET PO (08:40)
[2023-07-24] MEDS: SODIUM CHLORIDE 0.9% FLUSH 10 ML IV (08:40)
[2023-07-24] MEDS: ROPINIROLE 1 MG TABLET 2 MG PO (08:40)
[2023-07-24 08:59] LABS: BUN Creatinine Ratio 13.1 (6-22); Blood Urea Nitrogen 11 mg/dL (9-20); Calcium 8.8 mg/dL (8.4-10.2); Carbon Dioxide 28 mmol/L (22-32); Chloride 106 mmol/L (98-107); Estimated Glomerular Filt Rate > 60 mL/min (>60); Glucose 101 mg/dL (80-110); HEMOLYSIS < 15 (0-50); Magnesium 2.2 mg/dL (1.6-2.3); Potassium 3.3 mmol/L (3.4-5.1); Sodium 138 mmol/L (137-145)
[2023-07-24] MEDS: POTASSIUM CHLORIDE 20 MEQ TAB 40 MEQ PO (09:24)
[2023-07-24 09:29] LABS: Thyroid Stimulating Hormone 0.162 uIU/mL (0.47-4.68)
[2023-07-24 10:41] LABS: Free T4, Direct Thyroxine 1.31 ng/dL (0.78-2.19)
[2023-07-24 12:00] VITALS: BP 128/85; PULSE 58; RESP 16; TEMP 36.7; O2SAT 94
--- NOTE | 2023-07-24 12:00 | P.DS_ITS ---
History of Present Illness History of Present Illness Chief complaint: Dizziness, Falling Narrative: 72 y/o with PMH of CAD, HTN, GERD, hypothyroidism, BPH presented after he had presyncopal episode earlier today. Lately he developed recurrent syncope and had low BP measurements on several occasions, such as today on arrival to ED. He was attending a wedding today when he suddenly couldn't understand what he was hearing and felt dizzy. On Losartan 50 mg bid, chlorthalidone 12.5 mg and Lasix 20 mg daily for HTN, on Finasteride and 0.8 mg of Flomax for BPH, on Ropinirole, Gabapentin, Flexeril. Seen by carbon capture power plant operator few days ago and had Zio patch placed, being suspected for arrhythmia. In the ED workup non-revealing apart from hypotension with SBP in 90-ies, EKG NSR 75, CBC, CMP, troponin - all WNR. Given 1 l of NS and placed in observation on telemetry Discharge Providers Provider Date of admission: 07/23/23 21:47 Discharge Date: 07/24/23 Primary care physician: Janet Lima PA-C Consults: 07/24/23 07:43 Consult to Physical Therapy Evaluate & Treat Comment: Physician Instructions: Evaluate and Treat 07/24/23 11:08 Consult to Occupational Therapy Evaluate & Treat Comment: Physician Instructions: Evaluate and treat Discharge provider: Jonah Verde DO Summary Hospital Course Discharge Diagnosis: Recurrent Near Syncope, vertigo - DD: - Hypotension - at least with some of these events his BP was low. Holding Losartan and chlorthalidone/K On high Flomax dose, 0.8, apparently daily - continuing same dose, s/p TURP, Lithotripsy Decreased Ropinirole, continued prn gabapentin for back pain with Flexeril on hold - Arrhythmia - Hx of CAD / CABG.Has Zio patch, placed on telemetry. - autonomic neuropathy - on gabapentin and Lamictal for burning, presumably diabetic neuropathy, prescribed by pain doctor. - TIA - had unremarkable carotid US HTN - see above, holding Losartan, chlorthalidone and Lasix. SBP 90 in ED. Had 1 L of NS. BPH with LUTS / Recurrent UTIs - Hx of TURP, lithotripsies - Flomax HS, 0.8 mg HS, Finasteride, suppressive Tx with Macrobid - UA normal CAD / HLD - Plavix, statin - w/o angina or ischemic changes on EKG, troponin flat GERD / Elder's Esophagus - PPI bid, prn Maalox Hypothyroidism - levothyroxine 175 mcg daily, TSH pending GORGE - on BiPAP DM - Metformin, CCT, CBGs Hospital Course: Admitted for recurrent presyncope and vertigo. Found to have low SBP in ED at 90's. Assessed by PT/OT and recommended outpatient PT with vestibular specialist for possible BPPV. His home lasix and chlorthalidone was held. Also recommended he discuss with urologist his BPH meds which could contribute to orthostasis. He had recent outpatient echo which was normal. He will f/up with carbon capture power plant operator and urologist. Exam Vital Signs (past 8 hours): Oxygen Delivery Method Room Air Oxygen Flow Rate 0 Objective Labs 07/23/23 18:19 07/24/23 08:30 [facility] Medical History (Updated 07/23/23 @ 22:29 by Seb Nicholson MD) BPH loc w urin obs/LUTS Asthma ADD (attention deficit disorder) Viral meningitis PVC's (premature ventricular contractions) History of syncope History of sepsis Prostatitis Dysphagia Chronic back pain Chest pain Cardiomyopathy Elder's esophagus Anxiety Polyneuropathy Osteoarthritis Arthritis Back pain CAD (coronary artery disease) Depression GERD (gastroesophageal reflux disease) HLD (hyperlipidemia) HTN (hypertension) Hypothyroid Kidney stones Neck pain RLS (restless legs syndrome) Sleep apnea TIA (transient ischemic attack) (10/24/17) Surgical History Hx of transurethral resection of prostate (04/03/19) Hx of lithotripsy (07/2017) Hx of hernia repair (1985) S/P left unicompartmental knee replacement (02/05/19) H/O: vasectomy Hx of right inguinal hernia repair (10/16/13) Hx of cardiac cath Hx of cystoscopy (06/05/18) Hx of cystoscopy (08/02/17) History of repair of hiatal hernia (~01/2017) History of penile implant S/P epidural steroid injection S/P CABG x 4 (~2000) Social History household members: spouse Smoking Status: Never smoker alcohol intake: never Discharge Plan Discharge Plan Patient Disposition: Home Provider Discharge Comment: Your dizziness may be blood pressure related, given you had a low systolic BP in the 90's once you arrived to the emergency room. Therefore I've stopped your chlorthalidone and lasix until you follow-up with Dr. Amaya. It also could be due to some of the medications you take such as flomax, finasteride or ropinirole. Please speak with your urologist about these meds and if you can reduce them at all. Lastly you will want to see outpatient PT to check for BPPV which can cause vertigo. They can also work on your balance issues. Dr. Verde Nursing Discharge Comment: Please continue to monitor your blood pressures a few times a day and keep a log as your doctors may want this information when they see you for your follow-up appointments. Discharge orders & Medications Prescriptions: Continued losartan 50 mg Tablet 50 mg PO BID cyclobenzaprine 10 mg Tablet 10 mg PO TID PRN (Reason: Muscle Spasm) lamotrigine [Lamictal] 200 mg Tablet 200 mg PO BEDTIME trazodone 50 mg Tablet 50 mg PO BEDTIME clopidogrel 75 mg Tablet 75 mg PO DAILY ropinirole 2 mg Tablet 6 mg PO BID Rx Instructions: takes @ 1200 and 2100 pantoprazole 40 mg Tablet,Delayed Release (Dr/Ec) 40 mg PO DAILY Rx Instructions: @ 1800 gabapentin 300 mg Capsule 600 - 1,200 mg PO BID Rx Instructions: 600 in am 1200 in pm rosuvastatin [Crestor] 40 mg Tablet 40 mg PO BEDTIME potassium chloride 20 mEq Tablet Extended Release 40 meq PO DAILY duloxetine 30 mg capsule,delayed release(DR/EC) 60 mg PO DAILY nitrofurantoin macrocrystal 50 mg capsule 50 mg PO BEDTIME tamsulosin 0.4 mg capsule 0.8 mg PO BEDTIME metformin 1,000 mg tablet 1,000 mg PO BID pantoprazole 40 mg Tablet,Delayed Release (Dr/Ec) 80 mg PO DAILY Rx Instructions: 80mg in am 40mg @ 1800 finasteride 5 mg tablet 5 mg PO DAILY melatonin 5 mg Tablet 5 mg PO BEDTIME potassium chloride 20 mEq Tablet Extended Release 20 meq PO BEDTIME Rx Instructions: also takes 40meq in the morning levothyroxine 175 mcg Capsule 175 mcg PO DAILY multivitamin Tablet 1 tab PO DAILY cetirizine [Aller-Steve] 10 mg Tablet 10 mg PO DAILY cyanocobalamin (vitamin B-12) [Vitamin B-12] 1,000 mcg Tablet 1,000 mcg PO DAILY calcium carbonate 200 mg calcium (500 mg) Tablet,Chewable 200 mg PO TID Rx Instructions: after meals vitamin C-vitamin E Capsule 1 cap PO DAILY fluticasone propionate 110 mcg/actuation Hfa Aerosol Inhaler 2 puff INHALATION BID coenzyme Q10 [CoQ-10] 100 mg Capsule 100 mg PO DAILY alpha lipoic acid 200 mg Capsule 600 mg PO BID cholecalciferol (vitamin D3) 100 mcg (4,000 unit) Capsule 3,000 mcg PO DAILY Probiotic 20 billion cell Capsule 60 mmu cells PO DAILY Rx Instructions: 60 billion Glucosomine Iron 28 28 mg PO DAILY Scw-M-Picfjn Cysteine 600 mg PO Discontinued furosemide 20 mg Tablet 20 mg PO DAILY chlorthalidone 25 mg tablet 12.5 mg PO QAM Follow up/Referrals: Janet Lima PA-C [Primary Care Provider] - 2 Weeks Visit Report/Discharge Packet Instructions: DI for Syncope in Adults (Fainting), How to Monitor Your Blood Pressure at Home Stand Alone Forms: Patient Portal/API, Stroke Signs & Symptoms Discharge Data Primary Care Provider: Janet Lima Attending Provider: Seb Haley Admit Date/Time: 07/23/23 21:47 Quality VTE Deep Vein Thrombosis/Pulmonary Embolism Present on Admission: No
--- NOTE | 2023-07-24 13:00 | CM.DANOTE ---
Addendum entered by ORALIA Kohler 07/24/23 15:18: Per hospitalist, plan to dc today. Per PT/OT, rec home with assistance at this time. BOOTH CASHIER met with pt and spouuse in room, agreeable to dc no HH at this time. Deny other CM Needs. P: home with spouse today. CM team will continue to follow as needed. DANIEL Original Note: DCP Assessment note Pt is a 72yo male, resident of [place], here following syncope episode and low BP. Here under OBS PCP Janet Lima Payer Medicare and [employer] BOOTH CASHIER reviewed EMR. Per provider, potential dc tomorrow. PT/OT eval pending. BOOTH CASHIER entered room and introduced self and role. Pt accompanied by spouse and other family. Pt is indep/no DME/drives short distances at baseline. Spouse supports in helping pt manage appointments/driving longer distances. Pt has no hx of HH or SNF. Open to it if recommended. Deny other CM/DCP needs at this time. P: anticipate home with spouse when medically stable, f/u if HH recommended. CM team will continue to follow as needed. ORALIA Kohler Discharge Planning/Care Management CM Discharge Assessment Start: 07/24/23 12:42 Freq: Status: Active Protocol: Document 07/24/23 12:42 (Rec: 07/24/23 13:00 [id number]) Discharge Planning Assessment Assigned Bounty Hunter ORALIA [place] DPOA/Assigned Designee Name Ting spouse Contact Information [phone] Advance Directives? Yes Advance Directives on File No History Provided By Patient,Medical Record Prior Living Arrangements House Household Members spouse Comment drives short distances and has family for longer distances Independent with ADL's Yes Is patient alert and oriented? Yes Patient/Family Preference OP PT Therapy Discharge Plan Home Transportation Arrangement Spouse available to provide transport when medically stable Referrals Initiated None needed Whiteboard Updated in Patient Room with Yes name and ext. # of Bounty Hunter Review Status In Process Please Provide Date Initial DC 07/24/23 Assessment Was Performed Next Review Type Continued Stay Review
--- NOTE | 2023-07-24 14:24 | OT.IP.EVAL ---
Current Diagnoses Hypothyroidism, unspecified (07/23/23) Hyperlipidemia, unspecified (07/23/23) Major depressive disorder, single episode, unspecified (07/23/23) Restless legs syndrome (07/23/23) Sleep apnea, unspecified (07/23/23) Essential (primary) hypertension (07/23/23) Atherosclerotic heart disease of [place] coronary artery without angina pectoris (07/23/23) Gastro-esophageal reflux disease without esophagitis (07/23/23) Benign prostatic hyperplasia with lower urinary tract symptoms (07/23/23) Syncope and collapse (07/23/23) Past Medical History (Last Updated 07/23/23 @ 22:29 by Seb Nicholson MD) ADD (attention deficit disorder) Anxiety Arthritis Asthma Back pain Elder's esophagus BPH loc w urin obs/LUTS CAD (coronary artery disease) Cardiomyopathy Chest pain Chronic back pain Depression Dysphagia GERD (gastroesophageal reflux disease) History of sepsis History of syncope HLD (hyperlipidemia) HTN (hypertension) Hypothyroid Kidney stones Neck pain Osteoarthritis Polyneuropathy Prostatitis PVC's (premature ventricular contractions) RLS (restless legs syndrome) Sleep apnea TIA (transient ischemic attack) (10/24/17) Viral meningitis Surgical History (Last Reviewed 07/23/23 @ 19:08 by Clementina Miller DO) H/O: vasectomy History of penile implant History of repair of hiatal hernia (~01/2017) Hx of cardiac cath Hx of cystoscopy (08/02/17) Hx of cystoscopy (06/05/18) Hx of hernia repair (1985) Hx of lithotripsy (07/2017) Hx of right inguinal hernia repair (10/16/13) Hx of transurethral resection of prostate (04/03/19) S/P CABG x 4 (~2000) S/P epidural steroid injection S/P left unicompartmental knee replacement (02/05/19) Occupational Therapy Inpatient Evaluation/Re-Eval M1 PT/OT-IP Prior Functional Status Start: 07/24/23 10:32 Freq: NEEDED Status: Active Protocol: Document 07/24/23 14:28 CGR (Rec: 07/24/23 14:52 CGR [id number]) Medical Review Prior Functional Status Medical History Reviewed Yes Communication Pt is a good verbal communicator. Mobility and Gait Pt was IND at baseline without AD Activities of Daily Living and IADL's Pt was IND in all ADLs but states that his sometimes helps with LB dressing. Social History Household Members spouse Living Arrangements House Number of Floors (Floors) One Floor Number of Stairs To Enter/Railing? 1 step to landing then threshold with L railing assending. Home Environment High Toilet,Walk in Shower Home Equipment Front Wheel Walker,Straight Cane,Crutches,Hand Held Shower Employment Status Retired Additional Social History Comment Pt has an adjustable bed. M2 OT-IP Current Condition Start: 07/24/23 14:28 Freq: Status: Active Protocol: Document 07/24/23 14:28 CGR (Rec: 07/24/23 14:52 CGR [id number]) Occupational Therapy Current Condition Current Condition Evaluation Date 07/24/23 Treatment Diagnosis dizziness and falling, orthostatic Diagnosis Onset Date 07/23/23 M3 OT- IP Subjective and Pain Start: 07/24/23 14:28 Freq: Status: Active Protocol: Document 07/24/23 14:28 CGR (Rec: 07/24/23 14:52 CGR [id number]) OT- Subjective Occupational Therapy Visit Type Type Initial Evaluation Visit Start Time 13:43 Visit Stop Time 14:24 Occupational Therapy Visit Comments Patient Comments I feel pretty good. OT Pain Assessment Pain When Pain Assessed At Rest Pain Present Pain Present Denied Pain M4 OT- IP ADL's Start: 07/24/23 14:28 Freq: Status: Active Protocol: Document 07/24/23 14:28 CGR (Rec: 07/24/23 14:52 CGR [id number]) OT [id number] Comments OT Self-Feeding Comments not meal time OT ADL-Grooming General Evaluation Grooming Ability Independent Areas Needing Assistance Face Washing Comments OT Grooming Comments seated at sink OT ADL-Oral Care General Eval Oral Care Ability Independent Areas of Assistance Brushing Teeth Comments Oral Care Comments sitting at sink OT ADL-Dressing Comments OT Dressing Comments not performed, pt states he sometimes gets help from his for LB dressing. OT ADL-Toileting Comments OT Toileting Comments not performed OT ADL-Bathing Comments OT Bathing Comments not performed M5 OT- IP IADL's Start: 07/24/23 14:28 Freq: Status: Active Protocol: Document 07/24/23 14:28 CGR (Rec: 07/24/23 14:52 R [id number]) OT-Instrumental Activities of Daily Living Deficits IADL Deficits Identified No Deficits Home Safety Awareness Awareness of Need for Assistance at Home Good Awareness Ability to Problem Solve Emergency Able to Problem Solve Situations Medication Management Medication Management No Deficits Identified Money Management Money Management No Deficits Identified Meal Preparation Meal Preparation No Deficits Identified Automotive Parts Manager Automotive Parts Manager No Deficits Identified M6 OT- IP Functional Cognition Start: 07/24/23 14:28 Freq: Status: Active Protocol: Document 07/24/23 14:28 CGR (Rec: 07/24/23 14:52 R [id number]) Cognitive Factors Limiting Selfcare Function Cognitive Ability Level of Alertness Alert Patient Orientation Name,Age,Birthday,Month,Date, Year,Day of Week,Place, Situation Attention Span Ability Capable of Focused Attention, Capable of Sustained Attention Ability to Follow Commands Able to Follow Multi-Step Commands OT- Vision and Hearing OT- Hearing Assessment OT- Hearing Assessment WFL OT- Vision Assessment Visual Acuity WFL Visual Attentiveness WFL Occular Pursuits WFL Visual Convergence WFL Vision Assessment Comments pt wears bifocals. M7 OT- IP Mobility and Balance Start: 07/24/23 14:28 Freq: Status: Active Protocol: Document 07/24/23 14:28 CGR (Rec: 07/24/23 14:52 R [id number]) OT- Bed Mobility Assessment Supine to Sit Supine to Sit Assist Independent Scooting Scooting to Edge of Bed Independent OT-Transfer Assessment Sit to and From Stand Sit to and from Stand Independent,Standby Assistance Transfers Transfer Ability Independent,Standby Assistance Technique Transfer Destination Bed,Chair Transfer Technique Stand Step Pivot Devices Transfer Assistive Devices Gait Belt,4 Wheeled Walker Comments Mobility Comments Initially SBA for checking orthostatics but then MOD I with the use of the 4WW in the room. OT- Gait Assessment Gait Gait Assistance Required: Independent Assistive Devices Assistive Device Gait Belt,4 Wheeled Walker Comments Gait Ability Comments mob with MOD I out of the room using the 4WW. OT- Balance Assessment Sitting Balance and Reactions Static Sitting Balance Ability Good Dynamic Sitting Balance Ability Good M8 OT- IP Objective Assessments Start: 07/24/23 14:28 Freq: Status: Active Protocol: Document 07/24/23 14:28 CGR (Rec: 07/24/23 14:52 CGR [id number]) OT Gross Range of Motion Upper Extremity Range of Motion Assessment Within Functional Limits OT Strength Upper Extremity Strength Assessment Within Functional Limits Comments Strength Comments 5+/5 OT- Coordination Assessment Upper Extremity Finger to Nose Test Within Functional Limits Finger Tapping Test Within Functional Limits OT-Muscle Tone Assessment Muscle Tone WNL Yes OT Sensation Assessment Edema Edema Absent M9 OT- IP Assessment and Plan Start: 07/24/23 14:28 Freq: Status: Active Protocol: Document 07/24/23 14:28 CGR (Rec: 07/24/23 14:52 CGR [id number]) OT Summary Assessment and Plan Potential Rehabilitation Potential Excellent Analytic Complexity at Evaluation Low Summary OT Impairments Activity Tolerance Progress Towards Goals Safe For Discharge Assessment Summary Pt presents as a low complexity evaluation s/p admit with dizziness and falls . Pt educated on home safety with use of a 4ww and the need for GB in the bathroom. Pt and state understanding. Recommend d/c home with support and outpatient services as needed. Frequency of Treatment Frequency Of Treatment Discharge Discharge Recommendations OT Discharge Recommendations Home with Assistance Home Equipment Needs 4ww and GB in the bathroom Transportation Needs at Discharge Private Vehicle
[2023-07-24 14:48] VITALS: BP 104/75; BP 115/79; BP 136/77; PULSE 100; PULSE 78; PULSE 87
--- NOTE | 2023-07-24 14:48 | PT.IIE ---
Current Diagnoses Hypothyroidism, unspecified (07/23/23) Hyperlipidemia, unspecified (07/23/23) Major depressive disorder, single episode, unspecified (07/23/23) Restless legs syndrome (07/23/23) Sleep apnea, unspecified (07/23/23) Essential (primary) hypertension (07/23/23) Atherosclerotic heart disease of [place] coronary artery without angina pectoris (07/23/23) Gastro-esophageal reflux disease without esophagitis (07/23/23) Benign prostatic hyperplasia with lower urinary tract symptoms (07/23/23) Syncope and collapse (07/23/23) Surgical History (Last Reviewed 07/23/23 @ 19:08 by Clementina Miller DO) H/O: vasectomy History of penile implant History of repair of hiatal hernia (~01/2017) Hx of cardiac cath Hx of cystoscopy (08/02/17) Hx of cystoscopy (06/05/18) Hx of hernia repair (1985) Hx of lithotripsy (07/2017) Hx of right inguinal hernia repair (10/16/13) Hx of transurethral resection of prostate (04/03/19) S/P CABG x 4 (~2000) S/P epidural steroid injection S/P left unicompartmental knee replacement (02/05/19) Medical History (Last Updated 07/23/23 @ 22:29 by Seb Nicholson MD) ADD (attention deficit disorder) Anxiety Arthritis Asthma Back pain Elder's esophagus BPH loc w urin obs/LUTS CAD (coronary artery disease) Cardiomyopathy Chest pain Chronic back pain Depression Dysphagia GERD (gastroesophageal reflux disease) History of sepsis History of syncope HLD (hyperlipidemia) HTN (hypertension) Hypothyroid Kidney stones Neck pain Osteoarthritis Polyneuropathy Prostatitis PVC's (premature ventricular contractions) RLS (restless legs syndrome) Sleep apnea TIA (transient ischemic attack) (10/24/17) Viral meningitis Physical Therapy Inpatient Evaluation/Re-Eval M1 PT/OT-IP Prior Functional Status Start: 07/24/23 10:32 Freq: NEEDED Status: Active Protocol: Document 07/24/23 13:43 MB (Rec: 07/24/23 14:48 MB [id number]) Medical Review Prior Functional Status Medical History Reviewed Yes Diet/Fluid Consistency Regular Communication WNLs Mobility and Gait I and occ used cane and RW Activities of Daily Living and IADL's I, pt drove Prior Functional Level (Other details) reports multiple near falls and two falls at home Social History Household Members spouse Living Arrangements House Number of Floors (Floors) One Floor Number of Stairs To Enter/Railing? 1-2 steps to enter with left rail Home Environment High Toilet Home Equipment Front Wheel Walker,Straight Cane,Crutches,Hand Held Shower ,Grab Bars Near Toilet,Grab Bars In Shower Employment Status Retired M2 PT-IP Current Condition Start: 07/24/23 10:32 Freq: NEEDED Status: Active Protocol: Document 07/24/23 13:43 MB (Rec: 07/24/23 14:48 MB [id number]) Physical Therapy Current Condition Current Condition Evaluation Date 07/24/23 Treatment Diagnosis History of passing out, falls and orthostatic hypotension M3 PT-IP Subjective Start: 07/24/23 10:32 Freq: NEEDED Status: Active Protocol: Document 07/24/23 13:43 MB (Rec: 07/24/23 14:48 MB [id number]) Subjective Physical Therapy Visit Type Type Initial Evaluation Visit Start Time 13:43 Visit Stop Time 13:58 Number of CARRIAGE SETTER Visits 0 Physical Therapy Visit Comments Patient Comments Pt is agreeable to PT M4 PT-IP Mobility and Gait Start: 07/24/23 10:32 Freq: NEEDED Status: Active Protocol: Document 07/24/23 13:43 MB (Rec: 07/24/23 14:48 MB [id number]) PT-Bed Mobility Assessment Rolling Level of Assist Independent Supine to Sit Supine to Sit Independent Scooting Scooting to Edge of Bed Independent Scooting Up and Down in Bed Independent PT-Transfer Assessment Sit to and From Stand Sit to and from Stand Independent,Standby Assistance ,1 Person Assistance,Use of Upper Extremities Equipment Transfer Assistive Device Gait Belt,4 Wheeled Walker Orthotic/Prosthetic Devices or Brace: No Transfers Transfer Destination Chair Transfer Technique Ambulation Transfer Ability Level of Assist Independent,Standby Assistance Comments Mobility Comments Initially SBA to check orthostatics with BP and HR in right UE: supine 136/77, 78; standing 104/75, 100; standing 1' 115/79, 87. Pt was not symptomatic with standing. Gait without AD is SBA d/t occ mis-step and list to the right and gait with 4WRW is SBA and then mod I Gait Assessment Gait Gait Assistance Required: Independent,Standby Assistance Distance (Feet) 100 Able to Maintain Weight Bearing Status Yes During Gait Assistive Devices Assistive Device Gait Belt,4 Wheeled Walker Orthotic/Prosthetic Devices or Brace: No Gait Deviations General Gait Pattern Decreased Stride Length,Wide Based Gait Factors Limiting Gait Function Factors Limiting Gait Function Poor Balance Comments Gait Comments See comments above Stair Climbing Assessment Evaluation Level of Assist On Stairs Standby Assistance Devices Stair Climbing Assistive Devices Left Railing Technique/Endurance Stair Climbing Direction Ascend and Descend Stair Climbing Technique Step to Step Number of Steps Climbed 3 Query Text: Stair Climbing Set # Repetitions (reps) 1 PT-Balance Assessment Sitting Balance and Reactions Static Sitting Balance Ability Good Dynamic Sitting Balance Ability Good Standing Balance and Reactions Static Standing Balance Ability Good Dynamic Standing Balance Ability Fair Device Used Rollator M5 PT-IP Objective Assessments Start: 07/24/23 10:32 Freq: NEEDED Status: Active Protocol: Document 07/24/23 13:43 MB (Rec: 07/24/23 14:48 [id number]) Orientation Orientation/Cognition Level of Alertness Alert Orientation Name,Age,Birthday,Month,Date, Year,Day of Week,Place, Situation Language Function Ability No Deficits Noted Safety Awareness Understands Safety Issues Memory Description No Deficits Noted Gross Range of Motion Upper Extremity ROM Impairments Defer to OT Lower Extremity ROM Assessment Within Functional Limits Strength Lower Extremity Strength Assessment Within Functional Limits Comments Strength Comments Defer UEs to OT M6 PT-IP Treatment Start: 07/24/23 10:32 Freq: NEEDED Status: Active Protocol: Document 07/24/23 13:43 MB (Rec: 07/24/23 14:48 [id number]) Physical Therapy Treatment Education Education Provided Safety M7 PT-IP Assessment and Plan Start: 07/24/23 10:32 Freq: NEEDED Status: Active Protocol: Document 07/24/23 13:43 MB (Rec: 07/24/23 14:48 MB [id number]) PT Summary Assessment and Plan Potential Rehabilitation Potential Good Status of Condition at Evaluation Evolving Summary Impairments Balance,Activity Tolerance Progress Towards Goals Safe For Discharge Assessment Summary Pt is a 72 y/o male with ongoing orthostasis and he is not symptomatic with PT. Gait without AD requires SBA and performed gait training with rollator today and pt does well with this. will assist at home. Frequency of Treatment Frequency Of Treatment Discharge Weight Bearing Status Weight Bearing Status Weight Bear as Tolerated Recommendations To Nursing Amount of Assist Needed 1 Person Assist Discharge Recommendations PT Discharge Recommendations Home with Assistance, Outpatient PT Transportation Needs at Discharge Private Vehicle
== END 2023-07-24 16:25 | disposition home or self-care (01) ==
LOC: ED 18:46 → AC 21:48
PROVIDERS: Student in an Organized Health Care Education/Training Program; Admitting Provider Internal Medicine; Emergency Provider Emergency Medicine; PCP Physician Assistant Medical; Referring Provider Emergency Medicine; Visit Provider Internal Medicine
DX: R55 Syncope and collapse (principal); R42 Dizziness and giddiness; I10 Essential (primary) hypertension; G25.81 Restless legs syndrome; F32.9 Major depressive disorder, single episode, unspecified; G47.30 Sleep apnea, unspecified; N40.1 Benign prostatic hyperplasia with lower urinary tract symptoms; I25.10 Atherosclerotic heart disease of native coronary artery without angina pectoris; K21.9 Gastro-esophageal reflux disease without esophagitis; E03.9 Hypothyroidism, unspecified; Z95.1 Presence of aortocoronary bypass graft
CPT/HCPCS: 36415; 71045; 80048; 80053; 81001; 82550; 82962; 83605; 83690; 83735; 84439; 84443; 84484; 85025; 85610; 85730; 93005; 94640; 96360; 96361; 97161; 97165; 97535; 99284; G0378

== ENCOUNTER → 2023-10-06 11:03 | Outpatient (CLI) | payer OTHER, SELFPAY ==
[2023-07-23 21:54] VITALS: BMI 37.7
[2023-10-06 13:07] LABS: Appearance Urine UA CLEAR; Bilirubin Urine UA NEGATIVE (NEGATIVE); Glucose Urine UA NEGATIVE (Negative); Ketones Urine UA NEGATIVE (NEGATIVE); Leukocyte Esterase Urine UA NEGATIVE (NEGATIVE); Nitrite Urine UA NEGATIVE (Negative); Occult Blood Urine UA NEGATIVE (Negative); Protein Urine UA NEGATIVE (Negative); Specific Gravity Urine UA 1.025 (1.000-1.035)
[2023-10-06 13:13] LABS: Color Urine UA ORANGE
[2023-10-06 13:16] LABS: Alanine Aminotransferase 19 IU/L (<50); Albumin Globulin Ratio 1.5 (1.0-2.8); Alkaline Phosphatase 21 U/L (38-126); Aspartate Aminotransferase 28 IU/L (17-59); BUN Creatinine Ratio 16.9 (6-22); Bilirubin Total 0.7 mg/dL (0.2-1.3); Blood Urea Nitrogen 14 mg/dL (9-20); Carbon Dioxide 25 mmol/L (22-32); Chloride 103 mmol/L (98-107); Estimated Glomerular Filt Rate > 60 mL/min (>60); Globulin 2.7 g/dL (1.7-4.1); Glucose 113 mg/dL (80-110); Sodium 136 mmol/L (137-145); Total Protein 6.7 g/dL (6.3-8.2)
[2023-10-06 13:19] LABS: HEMOLYSIS 69 (0-50)
[2023-10-06 13:20] LABS: Potassium 3.9 mmol/L (3.4-5.1)
[2023-10-06 13:24] LABS: Bacteria Urine Occasional (0-1); Culture Indicated Urine Cult Not Indicated; RBC Urine None Seen (0-5/HPF); Squamous Epithelial Cell Urine 1-5 /HPF (0-5/HPF); Urine Volume 10mL (spun); WBC Urine 0-1/HPF (0-5/HPF)
== END ==
PROVIDERS: PCP Physician Assistant Medical; Referring Provider Chiropractor; Visit Provider Chiropractor
DX: E11.9 Type 2 diabetes mellitus without complications (principal)
CPT/HCPCS: 36415; 80053; 81001

== ENCOUNTER → 2025-01-13 17:09 | Outpatient (CLI) | payer MEDICARE, OTHER, SELFPAY ==
[2023-07-23 21:54] VITALS: BMI 37.7
--- NOTE | 2025-01-13 17:11 | DI.MRI.S_ITS ---
PROCEDURE: MR LUMBAR SPINE WO CON INDICATIONS: Scoliosis, unspecified TECHNIQUE: Noncontrast sagittal T1 spin echo and T2 fast echo, sagittal STIR, and T2 fast spin echo through the lumbar spine. In cases with scoliosis, additional coronal T2 fast spin echo may be performed. COMPARISON: MR, MR LUMBAR SPINE WO/W CON, 03/15/2018, 9:58. [facility], MR, L-SPINE WITHOUT CONTRAST, 11/09/2015, 16:13. [facility], MR, MR LUMBAR SPINE WO CON, 05/12/2021, 10:09. FINDINGS: Image quality: Excellent. Alignment and Curvature: There is normal bony alignment. Convex right scoliosis of the lumbar spine. Bone Marrow: Minimal Modic type 2 reactive endplate changes adjacent to the L1- L2, L2-L3, L3-L4 and L4-L5 discs. No acute vertebral body compression fractures. Spinal Cord: Conus medullaris terminates at the L1 level. Visualized cord demonstrates normal signal and size. Paraspinous Soft Tissues: No paravertebral masses. T12-L1: Slight loss of disc signal. Mild, diffuse disc bulge. No central stenosis. No neural foraminal narrowing. No neural compression. L1-L2: Loss of disc signal and height. Mild, diffuse disc bulge. Mild bilateral facet hypertrophy. Mild narrowing of the central canal. Mild bilateral neural foraminal narrowing. No neural compression. L2-L3: Loss of disc signal and height. Mild, diffuse disc bulge. Small left central disc protrusion. Mild to moderate bilateral facet hypertrophy. Mild narrowing of the central canal. Mild bilateral neural foraminal narrowing. No neural compression. L3-L4: Loss of disc signal and height. Moderate, diffuse disc bulge. [id number] bilateral facet hypertrophy. Mild to moderate narrowing of the central canal. Moderate right and mild left neural foraminal narrowing. No neural compression. L4-L5: Loss of disc signal and height. Mild, diffuse disc bulge. Moderate right and mild left facet hypertrophy. Mild to moderate narrowing of the central canal. Moderate right and mild left neural foraminal narrowing. No neural compression. L5-S1: Loss of disc signal. Mild, diffuse disc bulge. Moderate bilateral facet hypertrophy. No central stenosis. Severe right and moderate left neural foraminal narrowing with compression of the exiting right L5 nerve root. IMPRESSION: Mild convex right scoliosis. Multilevel degenerative disc disease. Multilevel facet arthropathy. No severe central canal stenosis. Severe right L5-S1 neural foraminal stenosis with compression of the exiting right L5 nerve root. Dictated by: Aimee Contreras MD, PhD on 01/14/2025 at 9:49 Approved by: Aimee Contreras MD, PhD on 01/14/2025 at 9:53
== END ==
LOC: MRI 17:11
PROVIDERS: PCP Physician Assistant Medical; Referring Provider Physician Assistant Medical; Visit Provider Physician Assistant
DX: M51.360 Other intervertebral disc degeneration, lumbar region with discogenic back pain only (principal); M51.370 Other intervertebral disc degeneration, lumbosacral region with discogenic back pain only; M47.816 Spondylosis without myelopathy or radiculopathy, lumbar region; M47.817 Spondylosis without myelopathy or radiculopathy, lumbosacral region; M48.062 Spinal stenosis, lumbar region with neurogenic claudication; M48.07 Spinal stenosis, lumbosacral region; M53.3 Sacrococcygeal disorders, not elsewhere classified; M41.9 Scoliosis, unspecified; Z79.01 Long term (current) use of anticoagulants
CPT/HCPCS: 72148